=== PATIENT | female | born 1935 | race Caucasian/White ===

== ENCOUNTER 2017-06-03 13:42 | Emergency (ER) | payer MEDICARE, BC ==
[2017-06-03 14:15] VITALS: BP 141/71
--- NOTE | 2017-06-03 15:26 | UC ---
Ear Complaint HPI - HPI Summary HPI Summary: ears clogged for a couple of months has bilateral ear pressure - History of Current Complaint Chief Complaint: UCEar Stated Complaint: EARS CLOGGED Time Seen by Provider: 06/03/17 14:14 Hx Obtained From: Patient ?: No Onset/Duration: Gradual Onset, Lasting Weeks Severity Initially: Mild Severity Currently: Moderate Pain Intensity: 5 Pain Scale Used: 0-10 Numeric Aggravating Factors: Nothing Alleviating Factors: Nothing Associated Signs/Symptoms: Positive: Hearing Loss - Allergies/Home Medications Allergies/Adverse Reactions: Allergies Allergy/AdvReac Type Severity Reaction Status Date / Time Fluoxetine [From Prozac] Allergy Hives Verified 06/03/17 14:15 Morphine AdvReac GI Upset Verified 06/03/17 14:15 Propranolol AdvReac See Comment Verified 06/03/17 14:15 PMH/Surg Hx/FS Hx/Imm Hx Previously Healthy: No Endocrine History: Hypothyroidism Cardiovascular History: Hypertension - Surgical History Surgical History: Yes Surgery Procedure, Year, and Place: RT ANKLE SURGERY. GALLBLADDER. THYROIDECTOMY. TONSILECTOMY - Family History Known Family History: Positive: None - Social History Occupation: Retired Lives: Alone Alcohol Use: Rare Substance Use Type: None Smoking Status (MU): Never Smoked Tobacco Review of Systems Constitutional: Negative Skin: Negative Eyes: Negative ENT: Ear Ache Respiratory: Negative Cardiovascular: Negative Gastrointestinal: Negative Genitourinary: Negative Motor: Negative Neurovascular: Negative Musculoskeletal: Negative Neurological: Negative Psychological: Negative Is Patient Immunocompromised?: No All Other Systems Reviewed And Are Negative: Yes Physical Exam Triage Information Reviewed: Yes Appearance: Well-Appearing, No Pain Distress, Well-Nourished Vital Signs: Initial Vital Signs Temp 98.1 F 06/03/17 14:09 Pulse 76 06/03/17 14:09 Resp 16 06/03/17 14:09 BP 141/71 06/03/17 14:09 Pulse Ox 96 06/03/17 14:09 Vital Signs Reviewed: Yes Eye Exam: Normal Eyes: Positive: Conjunctiva Clear ENT Exam: Normal ENT: Positive: Normal ENT inspection, Hearing grossly normal, Pharynx normal. Negative: Nasal congestion, Nasal drainage, TMs normal - bilateral ceruman impaction, Tonsillar swelling, Tonsillar exudate, Trismus, Muffled/hoarse voice Dental Exam: Normal Neck exam: Normal Neck: Positive: Supple, Nontender Respiratory Exam: Normal Respiratory: Positive: Chest non-tender, No respiratory distress, No accessory muscle use Cardiovascular Exam: Normal Cardiovascular: Positive: RRR, Brisk Capillary Refill Musculoskeletal Exam: Normal Musculoskeletal: Positive: Strength Intact, ROM Intact Neurological Exam: Normal Neurological: Positive: Alert Psychological Exam: Normal Skin Exam: Normal Re-Evaluation - Re-Evaluation First Eval Change: Improved - tm wnl--patient tolerated well feels better Ear Complaint Course/Dx - Course Course Of Treatment: follow bp with pcp in 1-2 weeks, recheck ears prn - Differential Dx/Diagnosis Provider Diagnoses: Resolved bilateral cerumen impaction Discharge - Discharge Plan Condition: Stable Disposition: HOME Patient Education Materials: Cerumen Impaction (ED), Hypertension (ED) Referrals: Enriqueta Puente MD [Primary Care Provider] - 2 Weeks
== END 2017-06-03 15:30 | disposition home or self-care (01) ==
LOC: UCEAST 13:42
DX: H61.23 Impacted cerumen, bilateral (principal); I10 Essential (primary) hypertension; E03.9 Hypothyroidism, unspecified; Z88.6 Allergy status to analgesic agent; Z88.8 Allergy status to other drugs, medicaments and biological substances
CPT/HCPCS: 99213; G0463

== ENCOUNTER 2017-06-29 10:01 | Inpatient (IN) | payer MEDICARE, BC ==
[2017-06-29] MEDS ORDERED: NS 0.9% 1000 ML*IV.FLUID IV ONE (11:11)
--- NOTE | 2017-06-29 11:38 | RAD ---
Indication: Rhonchi at the right base. Single frontal view of the chest performed at 1120 hours was reviewed. Comparison is made with previous exam dated February 24, 2016. No mediastinal shift is noted. Heart is of normal size and configuration. Lung rich appear clear. IMPRESSION: NO ACTIVE CARDIOPULMONARY DISEASE IS NOTED.
[2017-06-29 11:49] LABS: Urine Bacteria Absent (Absent); Urine Bilirubin Negative (Negative); Urine Glucose Negative (Negative); Urine Nitrite Negative (Negative)
[2017-06-29 11:53] LABS: Hematocrit 35 % (35-47); Hemoglobin 11.4 g/dl (12.0-16.0); Mean Corpuscular HGB Conc 32 g/dl (31-36); Mean Corpuscular Hemoglobin 28 pg (27-31); Mean Corpuscular Volume 87 fL (80-97); Mean Platelet Volume 8 um3 (7.4-10.4); Red Blood Count 4.04 10^6/ul (4.0-5.4); Red Cell Distribution Width 14 % (10.5-15); White Blood Count 14.9 10^3/ul (3.5-10.8)
[2017-06-29 12:08] LABS: Albumin 2.7 g/dL (3.2-5.2); BUN/Creatinine Ratio 26.7 (8-20); Calcium 9.7 mg/dL (8.6-10.3); EGFR African American 122.8 (>60); EGFR Non-African American 95.5 (>60); Globulin 3.2 g/dL (2-4); Total Bilirubin 0.5 mg/dL (0.2-1.0); Total Protein 5.9 g/dL (6.4-8.9)
--- NOTE | 2017-06-29 12:14 | RAD ---
INDICATION: 82-year-old with sinus pain COMPARISON: None TECHNIQUE: Axial images of the paranasal sinuses were acquired. Coronal and sagittal reconstructed images were obtained. FINDINGS: Frontal sinuses: The frontal sinuses are clear. The frontal air cells are hypoplastic Ethmoid sinuses: The ethmoid sinuses are clear. Maxillary sinuses: The maxillary sinuses are clear. Sphenoid sinuses: The sphenoid sinuses are clear. Nasal passageway: The nasal septum is midline. The nasal passageway is clear. The ostiomeatal complexes are patent. Orbits: The globes and intraconal contents are unremarkable. Brain: The visualized brain parenchyma is unremarkable. Other: None. IMPRESSION: THE PARANASAL SINUSES ARE CLEAR.
[2017-06-29 12:18] LABS: Troponin I 0.07 ng/mL (<0.04)
--- NOTE | 2017-06-29 13:29 | ED ---
Kirsten Jerry Gabriel, scribed for Lalita Schofield MD on 06/29/17 at 1109 . Complex/Multi-Sys Presentation - HPI Summary HPI Summary: This patient is an 82 year old F presenting to [facility] [place] after being referred from her PCP for abnormal labs. She believes the labs revealed that she has and infection. Patient reports weakness, loss of appetite, depression, cough with green sputum, diarrhea 3-4 times daily, sinus pressure in her forehead, and jaw pain only on chewing. She also reports edema in LE down from baseline. Patient denies dysuria, CP, and dental pain. - History Of Current Complaint Chief Complaint: EDWeakness Time Seen by Provider: 06/29/17 10:54 Hx Obtained From: Patient, Family/Skein Winding Operator Onset/Duration: Still Present Timing: Constant Associated Signs And Symptoms: Positive: Other - weakness, loss of appetite, depression, cough with green sputum, diarrhea 3-4 times daily, sinus pressure in her forehead, and jaw pain only on chewing. NEGATIVE: dental pain. Negative : Chest Pain, Dysuria - Allergies/Home Medications Allergies/Adverse Reactions: Allergies Allergy/AdvReac Type Severity Reaction Status Date / Time Fluoxetine [From Prozac] Allergy Hives Verified 06/03/17 14:15 Morphine AdvReac GI Upset Verified 06/03/17 14:15 Propranolol AdvReac See Comment Verified 06/03/17 14:15 Home Medications: Home Medications Levothyroxine TAB* [Synthroid TAB*] 50 mcg PO QAM 06/29/17 [History Confirmed ] Metoprolol Tartrate TAB* [Lopressor TAB*] 12.5 mg PO DAILY 06/29/17 [History Confirmed 06/29/17] Multiple Vitamins W/ Minerals [Preservision Areds 2 + Mu] 1 cap PO BID 06/29/17 [History Confirmed 06/29/17] Travoprost Z 0.004% OPHTH (NF) [Travatan Z 0.004% OPTH (NF)] 1 drop BOTH EYES BEDTIME 06/29/17 [History Confirmed 06/29/17] buPROPion TAB* [Wellbutrin TAB*] 200 mg PO DAILY 06/29/17 [History Confirmed ] PMH/Surg Hx/FS Hx/Imm Hx Previously Healthy: No Endocrine/Hematology History: Reports: Hx Thyroid Disease Denies: Hx Diabetes Cardiovascular History: Reports: Hx Hypertension Denies: Hx Angina, Hx Coronary Artery Disease - hx. of "left ventricular hypertrophy", Hx Hypercholesterolemia, Hx Myocardial Infarction, Hx Pacemaker/ ICD, Hx Valvular Heart Disease Respiratory History: Reports: Hx Seasonal Allergies Denies: Hx Asthma, Hx Chronic Obstructive Pulmonary Disease (COPD) Musculoskeletal History: Reports: Hx Arthritis, Hx Back Problems, Hx Osteoporosis Sensory History: Reports: Hx Cataracts, Hx Contacts or Glasses, Hx Hearing Problem Denies: Hx Hearing Aid, Other Sensory Impairments Opthamlomology History: Reports: Hx Cataracts, Hx Contacts or Glasses Denies: Other Sensory Impairments Psychiatric History: Reports: Hx Anxiety, Hx Depression Denies: Hx Panic Disorder, Hx Suicide Attempt - Cancer History Cancer Type, 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 GALLBLADDER. THYROIDECTOMY. TONSILECTOMY Hx Anesthesia Reactions: No Infectious Disease History: No Infectious Disease History: Denies: Hx Clostridium Difficile, Hx Hepatitis, Hx Human Immunodeficiency Virus (HIV), Hx of Known/Suspected MRSA, Hx Shingles, Hx Tuberculosis, Hx Known/ Suspected VRE, Hx Known/Suspected VRSA, History Other Infectious Disease, Traveled Outside the [place] in Last 30 Days - Family History Known Family History: Positive: Unknown - Social History Lives: Alone Alcohol Use: None Hx Substance Use: No Substance Use Type: Reports: None Hx Tobacco Use: No Smoking Status (MU): Never Smoked Tobacco Review of Systems Positive: Other - loss of appetite Positive: Other - sinus pressure in forehead and jaw pain on chewing . Negative : Dental Pain Negative: Chest Pain Positive: Cough - w/ green sputum Positive: Diarrhea - 3-4 times a day Negative: dysuria Negative: Edema - decreased from baseline Positive: Weakness Positive: Depressed All Other Systems Reviewed And Are Negative: Yes Physical Exam - Summary Physical Exam Summary: General: Well appearing, no pain distress Skin: Warm, Skin Color Reflects Adequate Perfusion, Dry Eyes: EOMI, NIYAH Mouth: Teeth are non-tender to palpation ENT: Pharynx normal, TMs normal, Bilateral tenderness over the frontal sinuses, mucous membranes are dry Neck: Supple, nontender Respiratory: CTA, breath sounds present, no wheezes, no rales, rhonchi at the right base, non tachypnic Cardiovascular: RRR, no murmur, no rub, no gallop Abdomen: Soft, nontender, Non-distended, no guarding, no rebound Bowel: Present Musculoskeletal: LELO, 2+ softening in legs Neuro: Sensory/motor intact, A&Ox3, CN intact 2-12 Psych: Affect/mood appropriate Triage Information Reviewed: Yes Vital Signs On Initial Exam: Initial Vitals Temp Pulse Resp BP Pulse Ox 97.5 F 78 16 129/67 99 06/29/17 10:03 06/29/17 10:03 06/29/17 10:03 06/29/17 10:03 06/29/17 10:03 Vital Signs Reviewed: Yes Diagnostics - Vital Signs Vital Signs Temp Pulse Resp BP Pulse Ox 06/29/17 10:03 97.5 F 78 16 129/67 99 - Laboratory Lab Results: Lab Results 06/29/17 06/29/17 06/29/17 Range/Units 11:32 11:32 11:32 WBC 14.9 H (3.5-10.8) 10^3/ul RBC 4.04 (4.0-5.4) 10^6/ul Hgb 11.4 L (12.0-16.0) g/dl Hct 35 (35-47) % MCV 87 (80-97) fL MCH 28 (27-31) pg MCHC 32 (31-36) g/dl RDW 14 (10.5-15) % Plt Count 556 H (150-450) 10^3/ul MPV 8 (7.4-10.4) um3 Neut % (Auto) 86.7 H (38-83) % Lymph % (Auto) 6.2 L (25-47) % Avery % (Auto) 6.5 (1-9) % Eos % (Auto) 0.6 (0-6) % Baso % (Auto) 0 (0-2) % Absolute Neuts (auto) 12.9 H (1.5-7.7) 10^3/ul Absolute Lymphs (auto) 0.9 L (1.0-4.8) 10^3/ul Absolute Monos (auto) 1.0 H (0-0.8) 10^3/ul Absolute Eos (auto) 0.1 (0-0.6) 10^3/ul Absolute Basos (auto) 0 (0-0.2) 10^3/ul Absolute Nucleated RBC 0 10^3/ul Nucleated RBC % 0 INR (Anticoag Therapy) 1.02 (0.89-1.11) APTT 27.8 (26.0-36.3) seconds Sodium 131 L (133-145) mmol/L Potassium 4.0 (3.5-5.0) mmol/L Chloride 97 L (101-111) mmol/L Carbon Dioxide 26 (22-32) mmol/L Anion Gap 8 (2-11) mmol/L BUN 16 (6-24) mg/dL Creatinine 0.60 (0.51-0.95) mg/dL Est GFR ( Amer) 122.8 (>60) Est GFR (Non-Af Amer) 95.5 (>60) BUN/Creatinine Ratio 26.7 H (8-20) Glucose 105 H (70-100) mg/dL Lactic Acid (0.5-2.0) mmol/L Calcium 9.7 (8.6-10.3) mg/dL Total Bilirubin 0.50 (0.2-1.0) mg/dL AST 14 (13-39) U/L ALT 8 (7-52) U/L Alkaline Phosphatase 200 H (34-104) U/L Troponin I 0.07 H* (<0.04) ng/mL Total Protein 5.9 L (6.4-8.9) g/dL Albumin 2.7 L (3.2-5.2) g/dL Globulin 3.2 (2-4) g/dL Albumin/Globulin Ratio 0.8 L (1-3) Urine Color Urine Appearance Urine pH (5-9) Ur Specific [place] (1.010-1.030) Urine Protein (Negative) Urine Ketones (Negative) Urine Blood (Negative) Urine Nitrate (Negative) Urine Bilirubin (Negative) Urine Urobilinogen (Negative) Ur Leukocyte Esterase (Negative) Urine WBC (Auto) (Absent) Urine RBC (Auto) (Absent) Ur Squamous Epith Cells (Absent) Urine Bacteria (Absent) Urine Glucose (Negative) Urine Ascorbic Acid (Negative) Influenza A (Rapid) (Negative) Influenza B (Rapid) (Negative) 06/29/17 06/29/17 06/29/17 Range/Units 11:32 11:32 11:58 WBC (3.5-10.8) 10^3/ul RBC (4.0-5.4) 10^6/ul Hgb (12.0-16.0) g/dl Hct (35-47) % MCV (80-97) fL MCH (27-31) pg MCHC (31-36) g/dl RDW (10.5-15) % Plt Count (150-450) 10^3/ul MPV (7.4-10.4) um3 Neut % (Auto) (38-83) % Lymph % (Auto) (25-47) % Avery % (Auto) (1-9) % Eos % (Auto) (0-6) % Baso % (Auto) (0-2) % Absolute Neuts (auto) (1.5-7.7) 10^3/ul Absolute Lymphs (auto) (1.0-4.8) 10^3/ul Absolute Monos (auto) (0-0.8) 10^3/ul Absolute Eos (auto) (0-0.6) 10^3/ul Absolute Basos (auto) (0-0.2) 10^3/ul Absolute Nucleated RBC 10^3/ul Nucleated RBC % INR (Anticoag Therapy) (0.89-1.11) APTT (26.0-36.3) seconds Sodium (133-145) mmol/L Potassium (3.5-5.0) mmol/L Chloride (101-111) mmol/L Carbon Dioxide (22-32) mmol/L Anion Gap (2-11) mmol/L BUN (6-24) mg/dL Creatinine (0.51-0.95) mg/dL Est GFR ( Amer) (>60) Est GFR (Non-Af Amer) (>60) BUN/Creatinine Ratio (8-20) Glucose (70-100) mg/dL Lactic Acid 1.3 (0.5-2.0) mmol/L Calcium (8.6-10.3) mg/dL Total Bilirubin (0.2-1.0) mg/dL AST (13-39) U/L ALT (7-52) U/L Alkaline Phosphatase (34-104) U/L Troponin I (<0.04) ng/mL Total Protein (6.4-8.9) g/dL Albumin (3.2-5.2) g/dL Globulin (2-4) g/dL Albumin/Globulin Ratio (1-3) Urine Color Yellow Urine Appearance Cloudy Urine pH 5.0 (5-9) Ur Specific [place] 1.013 (1.010-1.030) Urine Protein Negative (Negative) Urine Ketones Trace H (Negative) Urine Blood 1+ H (Negative) Urine Nitrate Negative (Negative) Urine Bilirubin Negative (Negative) Urine Urobilinogen Negative (Negative) Ur Leukocyte Esterase Trace H (Negative) Urine WBC (Auto) 2+(11-20/hpf) H (Absent) Urine RBC (Auto) 2+(6-10/hpf) H (Absent) Ur Squamous Epith Cells Present H (Absent) Urine Bacteria Absent (Absent) Urine Glucose Negative (Negative) Urine Ascorbic Acid * H (Negative) Influenza A (Rapid) Negative (Negative) Influenza B (Rapid) Negative (Negative) Result Diagrams: 06/29/17 11:32 06/29/17 11:32 Lab Statement: Any lab studies that have been ordered have been reviewed, and results considered in the medical decision making process. - Radiology CXR Radiology Interpretation Completed By: Radiologist - NO ACTIVE CARDIOPULMONARY DISEASE IS NOTED. ED physician has reviewed this radiology report and agrees. - CT CT Sinus CT Interpretation Completed By: Radiologist - THE PARANASAL SINUSES ARE CLEAR. ED physician has reviewed this radiology report and agrees. - EKG 11:28 Cardiac Rate: NL EKG Rhythm: Sinus Rhythm - NSR at 68 BPM EKG Interpretation: abnormal r wave progression, no ST elevations. Complex Multi-Symp Course/Dx Assessment/Plan: Patient has a WBC count of 1800 and CRP of 240, so she will receive antibiotics and fluids for just in case she proves to have sepsis. Pt with poor rwave progression on ekg trop .07. the idea of staying for observation to make sure this number improves was discussed with pt and her health care proxy and pt agreed to stay case was then discussed with Dr. Smith who accepted pt - Diagnoses Provider Diagnoses: Acute UTI, Elevated troponin - Physician Notifications Discussed Care Of Patient With: Mariel Smith Time Discussed With Above Provider: 12:40 Instructed by Provider To: Other - Discussed patient care with Dr. Smith, hospitalist and they have agreed to accept the patient for admittance Discharge - Discharge Plan Condition: Stable Disposition: ADMITTED TO [facility] Referrals: Enriqueta Puente MD [Primary Care Provider] - The documentation as recorded by the Kirsten burns Gabriel accurately reflects the service I personally performed and the decisions made by me, Lalita Schofield MD.
[2017-06-29] MEDS ORDERED: PROCHLORPERAZINE INJ 5 MG/ML 2 ML VIAL IV PRN (13:38)
[2017-06-29] MEDS ORDERED: Levofloxacin 500 MG IVPREMIX(* 500 MG/100 ML BAG IVPB ONE (13:38)
[2017-06-29] MEDS ORDERED: OPTH RIGHT EYE SCH (14:00)
[2017-06-29] MEDS ORDERED: Dorzolamide 2% OPTH (NF) 10 ML BTL RIGHT EYE SCH (14:00)
[2017-06-29] MEDS ORDERED: DORZOLAMIDE 2% RIGHT EYE SCH (14:00)
[2017-06-29] MEDS ORDERED: guaiFENesin LIQ* 100 MG/5 ML UDC PO PRN (14:05)
[2017-06-29 14:34] LABS: Urine Bacteria Absent (Absent); Urine Bilirubin Negative (Negative); Urine Glucose Negative (Negative); Urine Nitrite Negative (Negative)
[2017-06-29] MEDS: Heparin VIAL(*) 5000 UNITS/ML VIAL (FIVE THOUSAND) SUBCUT SCH ×2 (15:29→21:58)
[2017-06-29] MEDS: Acetaminophen TAB* 325 MG PO PRN (15:32)
--- NOTE | 2017-06-29 17:58 | HP ---
CC: Dr. Puente HISTORY AND PHYSICAL: DATE OF ADMISSION: 06/29/17 TIME OF EVALUATION: 1 p.m. PRIMARY CARE PROVIDER: Dr. Puente. CHIEF COMPLAINT: "I am weak." HISTORY OF PRESENT ILLNESS: Mrs. Vargas is an 82-year-old lady with a past medical history of paroxysmal atrial fibrillation, hypothyroidism, hypertension , anxiety, glaucoma, macular degeneration, that presents to the emergency room, referred by her PCP with complaints of weakness. The patient states that a couple of weeks ago, she started to have respiratory symptoms including runny nose and productive cough. This progressed associated with weakness and body aches. She denies chest pain or change on her baseline dyspnea, but the cough persisted. She developed pain on her facial sinuses and went to see her primary care provider yesterday and had lab test done. Her CBC showed a white cell count of 18.4 with thrombocytosis, left shift and a CRP of 223. Her PCP called her today and recommended she come to the emergency room for further evaluation. The patient states she has been progressively weak. She was unable to transfer from her bed and a friend had to buy a bed risers and now she is able to stand up. She has also been using a walker and that is new to her and recently she has required a wheelchair when she goes out for appointments. She denies fever, chills, nausea, or vomiting. She did have some loose stools this past week, but she states this is better now. She has lower extremity edema, but also thinks this is better now that she is taking spironolactone. She denies dysuria, describes frequency that she thinks is associated with spironolactone use. PAST MEDICAL HISTORY: 1. 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 2. Hypertension. 3. Paroxysmal atrial fibrillation. 4. Anxiety. 5. Glaucoma. 6. Macular degeneration. MEDICATION LIST: 1. Bupropion 200 mg p.o. daily. 2. Trusopt 1 drop to right eye t.i.d. 3. Levothyroxine 50 mcg p.o. q.a.m. 4. Losartan 100 mg p.o. daily. 5. Metoprolol tartrate 12.5 mg p.o. daily. 6. PreserVision AREDS 2 one capsule p.o. b.i.d. 7. Spironolactone 12.5 mg p.o. daily. 8. Travatan Z 0.004% one drop to both eyes at bedtime. ALLERGIES: With FLUOXETINE, the patient had hives; with MORPHINE, she had GI upset; and with PROPRANOLOL, she had bradycardia. FAMILY HISTORY: Reviewed and noncontributory. SOCIAL HISTORY: No history of tobacco or drug use. Occasionally, she drinks alcohol. She lives at [facility]. Surrogate decision maker is her friend, Minda Salinas, phone number is [phone]. REVIEW OF SYSTEMS: A 14-point review of systems was performed, and all the pertinent negative and positive findings are in the HPI. PHYSICAL EXAMINATION GENERAL: The patient is a pleasant elderly lady, sitting up in the ED stretcher , in no acute distress. VITAL SIGNS: Temperature 97.5, heart rate is 72, respiratory rate is 16, oxygen saturation is 97% on room air, blood pressure is 133/70. HEENT: Pupils are equal. Moist mucous membranes. CHEST: Breath sounds are present bilaterally with scattered rhonchi. No wheezing. CVS: Normal S1, S2. Regular rate and rhythm. ABDOMEN: Soft, nontender, nondistended. Bowel sounds are present. EXTREMITIES: Bilateral [id number] pitting edema of the lower extremities. LABORATORY AND IMAGING DATA: The patient had a CBC that showed a WBC of 14.9, hemoglobin of 11.4, hematocrit of 35, platelets of 156 with 86% neutrophils. INR was 1.02. Chemistry showed a sodium of 131, potassium of 4.0, chloride of 97, bicarb of 26, BUN of 16, creatinine of 0.6, glucose of 105, lactic acid 1.3 , calcium of 9.7. LFTs are normal except for alk phos of 200 and first troponin was 0.07. Urinalysis showed trace ketones, 1+ blood, trace LE, 2+ wbc's, 2+ rbc's, and influenza A and B were negative. Chest x-ray showed no active cardiopulmonary disease. CT of the sinuses showed the paranasal sinuses are clear. EKG done on June 29 at 11:28 a.m. shows sinus rhythm at 68 beats per minute with no ST-T changes. No significant change when compared to her prior EKG from February 2016. ASSESSMENT AND PLAN: Mrs. Vargas is an 82-year-old lady with past medical history of hypothyroidism, hypertension, paroxysmal atrial fibrillation, anxiety , glaucoma, macular degeneration that was sent to the emergency room by her primary care provider with complaints of weakness, found to have signs of infection and borderline troponins. 1. Borderline troponins. The patient has no complaints of chest pain. No acute EKG changes. I believe this is likely secondary to demand in the setting of infection. The patient had a nuclear stress test in February 2016 and it showed a normal ejection fraction with a small reversible perfusion defect of the inferior wall that could represent artifact or a small area of ischemia. The patient follows regularly with Dr. Caldwell and the plan was to continue only medical management. She is going to be admitted as observation to the telemetry. We are going to check serial troponins and continue to monitor her for now. 2. Bronchitis. I suspect the source of her infection is bronchitis at this time. Her chest x-ray shows no infiltrate and the CT of the sinuses was also negative. She was pancultured in the emergency room and we are going to start levofloxacin empirically. The patient states her urinalysis in the emergency room was not a clean catch, so we are going to try to straight cath her and send another sample, but at this point, she has no other urinary complaints besides frequency that she feels is associated with spironolactone use. 3. Leukocytosis/anemia/thrombocytosis. Although I believe her leukocytosis may be secondary to an infectious process, she does have changes on other cell lines too and considering her age, her CRP and alk phos elevation, a hematological malignancy should also be considered. I believe after discharge, the patient should follow up with her primary care provider and if these changes do not resolve with her bronchitis treatment, she should be seen by Hematology. 4. Paroxysmal atrial fibrillation. The patient is in sinus rhythm at this time. We will continue metoprolol. 5. Hypertension is controlled. We will continue metoprolol and losartan. 6. DVT prophylaxis. The patient has a score of 5 on the DVT Prophylaxis Risk Assessment Guide and she will be started on subcutaneous heparin. 7. Code status is full. TIME SPENT: Approximately 60 minutes were spent with the patient interview, medical records review, physical examination to complete this admission; more than half of this time was spent [id number] with the patient and coordination of care. [id number]/[facility] #: [id number] MINNIE
[2017-06-29] MEDS: PTO: Dorzolamide 2% OPTH (NF) 10 ML BTL RIGHT EYE SCH (20:28)
[2017-06-29] MEDS ORDERED: Latanoprost 0.005%* 2.5 ml BTL BOTH EYES SCH ×2 (21:00→22:00)
[2017-06-29] MEDS: MINERA AREDS PO SCH (21:59)
[2017-06-29] MEDS: MULTIVITAMINS PO SCH (21:59)
[2017-06-30] MEDS: Acetaminophen TAB* 325 MG PO PRN ×2 (00:26→08:43)
[2017-06-30] MEDS: Heparin VIAL(*) 5000 UNITS/ML VIAL (FIVE THOUSAND) SUBCUT SCH (05:16)
[2017-06-30] MEDS ORDERED: Levothyroxine TAB* 50 MCG TAB PO SCH (06:00)
[2017-06-30] MEDS: MULTIVITAMINS PO SCH (08:31)
[2017-06-30] MEDS: MINERA AREDS PO SCH (08:31)
[2017-06-30] MEDS: PTO: Dorzolamide 2% OPTH (NF) 10 ML BTL RIGHT EYE SCH (08:42)
[2017-06-30] MEDS ORDERED: Spironolactone TAB* 25 MG PO SCH (09:00)
[2017-06-30] MEDS ORDERED: Losartan TAB* 25 MG PO SCH (09:00)
[2017-06-30] MEDS ORDERED: buPROPion TAB* 100 MG PO SCH (09:00)
[2017-06-30] MEDS ORDERED: Aspirin EC Low Dose* 81 MG TAB.EC PO SCH (09:00)
[2017-06-30] MEDS ORDERED: Metoprolol Tartrate TAB* 25 MG PO SCH (09:00)
[2017-06-30 11:39] VITALS: BP 140/73
--- NOTE | 2017-06-30 12:00 | DCNOTE ---
Patient seen this morning. Says she feels better today although tired from not getting good sleep in the hospital. Not coughing much, no SOB. Friend at bedside says she has plenty of support at home. On exam, RRR, s1 and s2 present, no m/g/r, lungs CTA B/L, no w/r/r, abd soft, NTND, BS+, no LE edema Will discharge home today on PO ABx for presumed bronchitis. Trops unchanged, likely demand-mediated. Will f/u with Dr. Puente next week.
[2017-06-30] MEDS ORDERED: Levofloxacin TAB* 500 MG ONE (12:36)
[2017-06-30] MEDS: Levofloxacin TAB* 500 MG PO SCH ×2 (12:38→12:48)
[2017-06-30] MEDS ORDERED: Levofloxacin TAB* 500 MG PO SCH (15:00)
--- NOTE | 2017-06-30 17:31 | DS ---
CC: Dr. Puente DISCHARGE SUMMARY: DATE OF ADMISSION: 06/29/17 DATE OF DISCHARGE: 06/30/17 PRIMARY CARE PHYSICIAN: Dr. Puente. PRINCIPAL DISCHARGE DIAGNOSES: 1. Acute bronchitis. 2. Weakness. SECONDARY DIAGNOSES: 1. Hypertension. 2. Paroxysmal atrial fibrillation. 3. Anxiety. 4. Glaucoma. 5. Macular degeneration. 6. History of Graves' and thyroid cancer, status post thyroidectomy, now on replacement therapy. DISCHARGE MEDICATION REGIMEN: 1. Levofloxacin 500 mg by mouth daily. 2. Dorzolamide 1 drop to the right eye 3 times daily. 3. Synthroid 50 mcg by mouth daily. 4. Losartan 100 mg by mouth daily. 5. Wellbutrin 200 mg by mouth daily. 6. Spironolactone 12.5 mg by mouth daily. 7. Travoprost 1 drop in both eyes at bedtime. 8. PreserVision 1 capsule by mouth 3 times daily. 9. Metoprolol tartrate 12.5 mg by mouth daily. STUDIES DONE DURING HOSPITALIZATION: Chest x-ray, impression: No active cardiopulmonary disease is noted. CT of the sinus, impression: The paranasal sinuses are clear. HISTORY OF PRESENT ILLNESS AND HOSPITAL SUMMARY: Please see the full history and physical by Dr. Louie for full details. Briefly, Ms. Vargas is an 82-year-old female, who presented to her PCP's [facility] with complaints of weakness, body aches, runny nose, and productive cough. She felt some sinus pr essure as well. The patient's PCP shabana labs and as an outpatient was noted to have a white blood carmencita l count of 18.4 with a thrombocytosis and an elevated CRP. She recommended the patient to come to [facility] for further evaluation. As noted, imaging as above was relatively unremarkable. The frank ent also had urinalysis that was not terribly convincing for an infection and the patient had no dysu rubin. Influenza swab was negative. The patient did have a mild troponin elevation of 0.07 and this r emained stable. The patient had no chest pain and it was felt like this was likely secondary to infe ction. The patient was felt likely have acute bronchitis. She was started on antibiotics and the following day, she stated she had improvement in her energy, did not feel as weak anymore and was anxious to go home. Her friend at the bedside states that she will be helping the patient at home and the patient has significant support system as well as a walker and a wheelchair at home. I felt that it was saf e to discharge the patient home on additional days of antibiotics for presumed bronchitis. As noted in the history and physical by Dr. Aguayo, the patient did have a thrombocytosis as well as a signifi cantly elevated CRP and alk phos. The patient should have repeat blood work in the next few weeks af ter her symptoms have resolved to reevaluate these lab abnormalities and if they are not corrected, m ay benefit from Heme/Onc consultation. TIME SPENT: Total time spent on this discharge 45 minutes. This is a summary of the hospitalization, please see the full medical record for further details. [id number] #: [id number]
== END 2017-06-30 13:00 | disposition home or self-care (01) | DRG 203 ==
LOC: ED 10:01 → MEDTELE 13:01
PROVIDERS: ADMIT Internal Medicine; ATTEND Hospitalist
DX: J20.9 Acute bronchitis, unspecified (principal); I48.0 Paroxysmal atrial fibrillation; I10 Essential (primary) hypertension; E89.0 Postprocedural hypothyroidism; J30.2 Other seasonal allergic rhinitis; M81.0 Age-related osteoporosis without current pathological fracture; M19.90 Unspecified osteoarthritis, unspecified site; F41.9 Anxiety disorder, unspecified; F32.9 Major depressive disorder, single episode, unspecified; H26.9 Unspecified cataract; H35.30 Unspecified macular degeneration; H40.9 Unspecified glaucoma; H91.90 Unspecified hearing loss, unspecified ear; D47.3 Essential (hemorrhagic) thrombocythemia; R79.82 Elevated C-reactive protein (CRP); Z90.49 Acquired absence of other specified parts of digestive tract; Z88.5 Allergy status to narcotic agent; Z88.8 Allergy status to other drugs, medicaments and biological substances; Z85.850 Personal history of malignant neoplasm of thyroid; Z72.89 Other problems related to lifestyle
CPT/HCPCS: 36415; 70486; 71010; 80053; 81003; 81015; 82607; 82728; 82746; 83605; 84439; 84443; 84479; 84484; 85025; 85045; 85610; 85730; 86140; 87040; 87086; 87502; 93005; A9270-GY; J1644; J1956

== ENCOUNTER 2017-08-03 13:28 | Inpatient (IN) | payer MEDICARE, BC ==
[2017-08-03] MEDS ORDERED: NS 0.9% 1000 ML* 1,000 ML IV ONE (13:41)
[2017-08-03 14:23] LABS: ABS Basophils 0.1 10^3/ul (0-0.2); ABS Eosinophils 0 10^3/ul (0-0.6); ABS Lymphocytes 0.7 10^3/ul (1.0-4.8); ABS Monocytes 0.8 10^3/ul (0-0.8); ABS Neutrophils 18.4 10^3/ul (1.5-7.7); ABS Nucleated RBC 0.02 10^3/ul; Eosinophil % 0.1 % (0-6); Hematocrit 35 % (35-47); Hemoglobin 11.4 g/dl (12.0-16.0); Lymphocyte % 3.4 % (25-47); Mean Corpuscular HGB Conc 33 g/dl (31-36); Mean Corpuscular Hemoglobin 28 pg (27-31); Mean Corpuscular Volume 86 fL (80-97); Mean Platelet Volume 7 um3 (7.4-10.4); Nucleated Red Blood Cells % 0.1; Platelet Count 479 10^3/ul (150-450); Red Blood Count 4.03 10^6/ul (4.0-5.4); Red Cell Distribution Width 15 % (10.5-15)
--- NOTE | 2017-08-03 14:23 | RAD ---
Indication: Weakness; possible drug overdose. Comparison: June 29, 2017 Technique: Upright AP 1410 hours Report: Elevated lung volumes and both diffuse mild prominence of the interstitial markings and patchy rarefaction of the mid to upper lung zone interstitial markings. No focal pulmonary lesion, compelling alveolar consolidation, pleural effusion, pneumothorax. Negative for cardiomegaly. Unremarkable central pulmonary vasculature. Mildly tortuous thoracic aorta. IMPRESSION: Stigmata of obstructive lung disease. No acute pulmonary or cardiac process evident.
--- NOTE | 2017-08-03 14:46 | RAD ---
Indication: Suspected overdose on bupropion. Possible CVA. Comparison: No relevant prior exams available on the [facility] PACS for comparison. Technique: Noncontrast CT vertex of skull through foramen magnum. Report: The sulci, ventricles, and basal cisterns are normal for age. Hernandez matter white matter differentiation is preserved without evidence for edema. No intra or extra axial hemorrhage, mass, or fluid collection detected. No suspicious abnormality at the visualized orbital contents. Indolent thickening of the inner table of the frontal bone. No suspicious calvarial or skull base lesions or fracture. Unremarkable scalp. The visualized paranasal sinuses and mastoid air spaces are clear. IMPRESSION: Negative for intracranial hemorrhage or CT stigmata of ischemic infarct. Negative exam.
[2017-08-03 14:48] LABS: INR 0.96 (0.77-1.02)
[2017-08-03] MEDS ORDERED: Levothyroxine TAB* 25 MCG TAB PO ONE (16:15)
--- NOTE | 2017-08-03 16:29 | ADMNOTE ---
Subjective Date of Service: 08/03/17 Interval History: ADMISSION HISTORY AND PHYSICAL EXAM: Allergies Allergy/AdvReac Type Severity Reaction Status Date / Time Fluoxetine [From [facility]] Allergy Hives Verified 06/03/17 14:15 Morphine AdvReac GI Upset Verified 06/03/17 14:15 Propranolol AdvReac See Comment Verified 06/03/17 14:15 Home Medications Medication Instructions Recorded Confirmed Type Losartan TAB* [Cozaar TAB*] 100 mg PO DAILY 10/25/13 08/03/17 History Dorzolamide 2% OPTH (NF) [Trusopt 1 drop RIGHT EYE BID 02/24/16 08/03/17 History 2% OPTH (NF)] Levothyroxine TAB* [Synthroid TAB*] 50 mcg PO QAM 06/29/17 08/03/17 History Travoprost Z 0.004% OPHTH (NF) 1 drop BOTH EYES BEDTIME 06/29/17 08/03/17 History [Travatan Z 0.004% OPTH (NF)] Furosemide TAB* [Lasix TAB*] 20 mg PO DAILY 08/03/17 08/03/17 History Metoprolol Succinate XL TAB* 12.5 mg PO BEDTIME 08/03/17 08/03/17 History [Toprol XL TAB*] Metoprolol Succinate XL TAB* 12.5 mg PO QAM 08/03/17 08/03/17 History [Toprol XL TAB*] buPROPion SR TAB* [Wellbutrin SR 100 mg PO BEDTIME 08/03/17 08/03/17 History TAB*] buPROPion SR TAB* [Wellbutrin SR 200 mg PO QAM 08/03/17 08/03/17 History TAB*] HPI: The patient was somewhat weaker yesterday. Today she couldn't get OOB. No pain. She took an unknown number of bupropion tablets during the night to try to kill herself. She says she did this also a few days ago. She says she is very depressed. SHe also says she is impacted. Social History: Findings - Lives alone. No alcohol or tobacco use. No children or siblings living. Her friend Minda Salinas is her SDM. Past Medical History: Findings - Graves's disease and thryoid cancer, thyroid surgery. ? hx PAF. Glaucoma. macular degeneration. Review of Systems - Measurements Intake and Output: Intake and Output Last 24 Hours 08/01/17 08/02/17 08/03/17 08/04/17 06:59 06:59 06:59 06:59 Weight 180 lb Objective Vital Signs - 8 hr 08/03/17 13:31 Temperature 97.7 F Pulse Rate 87 Respiratory 20 Rate Blood Pressure 149/74 (mmHg) O2 Sat by Pulse 97 Oximetry Oxygen Devices in Use Now: None Appearance: Alert, partly up on ED stretcher. Depressed, otherwise looks comfortable. Eyes: No Scleral Icterus Ears/Nose/Mouth/Throat: Clear Oropharnyx, Mucous Membranes Moist Neck: NL Appearance and Movements; NL JVP, No Thyroid Enlargement, Masses Respiratory: Symmetrical Chest Expansion and Respiratory Effort, Clear to Auscultation, Clear to Percussion Cardiovascular: NL Sounds; No Murmurs; No JVD, RRR, - - 1+ edema BL Extremities: No Clubbing, Cyanosis, - - 1+ edema BL Skin: No Rash or Ulcers, No Nodules or Sclerosis, - Neurological: Alert and Oriented x 3, NL Sensation, - - diminished hearing Result Diagrams: 08/03/17 14:10 08/03/17 14:10 Assess/Plan/Problems-Billing Assessment: - Patient Problems (1) Suicidal behavior Current Visit: Yes Status: Acute Code(s): R46.89 - OTHER SYMPTOMS AND SIGNS INVOLVING APPEARANCE AND BEHAVIOR SNOMED Code(s): 437485353 Comment: Telelmetry until 08/04. Psychiatry consult. (2) Left hemiparesis Current Visit: Yes Status: Acute Code(s): G81.94 - HEMIPLEGIA, UNSPECIFIED AFFECTING LEFT NONDOMINANT SIDE SNOMED Code(s): 640065001 Comment: Subtle changes per Dr. Goel. Could be CVA or periperal neuropathy. Slow progression over a month favors the latter dx. MRI brain and C-spine ordered. (3) Hypothyroid Current Visit: Yes Status: Acute Code(s): E03.9 - HYPOTHYROIDISM, UNSPECIFIED SNOMED Code(s): 78089145 Comment: TSH 22 on 08/03/17. Extra levothyroxine 50 mcg 08/03, change daily dose to 100 mcg. (4) Fecal impaction Current Visit: Yes Status: Acute Code(s): K56.41 - FECAL IMPACTION SNOMED Code(s): 61517029 Comment: Pt reports a fecal impaction. She can't remember when she last had a BM. Disimpaction ordered, also PEG 17 gm bid. (5) HTN (hypertension) Current Visit: Yes Status: Acute Code(s): I10 - ESSENTIAL (PRIMARY) HYPERTENSION SNOMED Code(s): 42801872 Comment: Continue losartan, metoprolol. (6) Atrial fibrillation Current Visit: Yes Status: Acute Code(s): I48.91 - UNSPECIFIED ATRIAL FIBRILLATION SNOMED Code(s): 80361074 Comment: We wlll try to contact Dr. Caldwell about possible anti-coagulation for atrial fib.
--- NOTE | 2017-08-03 16:43 | ED ---
Tony Jerry Angela, scribed for Katt Lopez MD on 08/03/17 at 1340 . Neurological HPI - HPI Summary HPI Summary: This pt is a 82 y/o female, accompanied by her health care proxy Minda Salinas, presenting to [facility] via EMS from Dr. Puente's office c/o left sided weakness and possible medication overdose yesterday. Pt lives in [facility]. Pt was last seen well yesterday, per Dr. Puente's report. Per EMS pt has confusion, some slurred speech, and left sided weakness. Minda notes that the pt is usually able to get up from her bed to go to the bathroom. This morning, per health care proxy, pt couldn't get off the toilet. Pt additionally states numbness of left fingers. Report from Dr. Puente also states that she was on antidepressants which was stopped and then pt re took again. Pt told neighbor that she took extra Bupropion pills yesterday evening. When asked how many pills she took, pt notes "not enough to do the job." She states "there is no reason to keep going." Pt reports that today and currently she is feeling "hopeful." Minda states she has been trying to feed the pt but the pt has not been eating well for the past days. Minda notes the pt has lost weight. Pt denies abd pain. Pt normally ambulated with a walker. She denies any recent falls. EMS reports pt's glucose en route was 103 and O2 sat of 95-[address] Puente reports that pt does have paroxysmal atrial fibrillation, but is not on anticoagulation, because pt did not want anticoagulation. - History of Current Complaint Stated Complaint: POSSIBLE CVA Hx Obtained From: Patient, Family/Reinspector - health care proxy, EMS, Other: - Dr. Puente Onset/Duration: Gradual Onset, Started days ago, Still Present Timing: Constant Onset Severity: Moderate Current Severity: Moderate Neurological Deficit Location: LUE, LLE Pain Intensity: 0 Character: Weak - left sided, Numbness/Tingling - numbness of left fingers, Motor Weakness - left upper and lower extremities, Confusion Aggravating: Nothing Alleviating: Nothing Associated Signs and Symptoms: Positive: Unsteady Gait - difficulty ambulating, Confusion, Weakness, Change in Diet - poor po intake, Depression - increased. Suicidal gesture. TPA Considered: No - last known well yesterday - Additional Pertinent History Primary Care Physician: Referred By: PCP - Allergy/Home Medications Allergies/Adverse Reactions: Allergies Allergy/AdvReac Type Severity Reaction Status Date / Time Fluoxetine [From Prozac] Allergy Hives Verified 06/03/17 14:15 Morphine AdvReac GI Upset Verified 06/03/17 14:15 Propranolol AdvReac See Comment Verified 06/03/17 14:15 Home Medications: Home Medications Furosemide TAB* [Lasix TAB*] 20 mg PO DAILY 08/03/17 [History Confirmed 08/03/17 ] Metoprolol Succinate XL TAB* [Toprol XL TAB*] 12.5 mg PO BEDTIME 08/03/17 [ History Confirmed 08/03/17] Metoprolol Succinate XL TAB* [Toprol XL TAB*] 12.5 mg PO QAM 08/03/17 [History Confirmed 08/03/17] buPROPion SR TAB* [Wellbutrin SR TAB*] 100 mg PO BEDTIME 08/03/17 [History Confirmed 08/03/17] buPROPion SR TAB* [Wellbutrin SR TAB*] 200 mg PO QAM 08/03/17 [History Confirmed 08/03/17] PMH/Surg Hx/FS Hx/Imm Hx Endocrine/Hematology History: Reports: Hx Thyroid Disease Denies: Hx Diabetes Cardiovascular History: Reports: Hx Atrial Fibrillation, Hx Hypertension Denies: Hx Angina, Hx Coronary Artery Disease - hx. of "left ventricular hypertrophy", Hx Hypercholesterolemia, Hx Myocardial Infarction, Hx Pacemaker/ ICD, Hx Valvular Heart Disease Respiratory History: Reports: Hx Seasonal Allergies Denies: Hx Asthma, Hx Chronic Obstructive Pulmonary Disease (COPD), Other Respiratory Problems/Disorders Musculoskeletal History: Reports: Hx Arthritis, Hx Back Problems, Hx Osteoporosis Sensory History: Reports: Hx Cataracts, Hx Contacts or Glasses, Hx Hearing Problem Denies: Hx Hearing Aid, Other Sensory Impairments Opthamlomology History: Reports: Hx Cataracts, Hx Contacts or Glasses Denies: Other Sensory Impairments Psychiatric History: Reports: Hx Anxiety, Hx Depression Denies: Hx Panic Disorder, Hx Suicide Attempt - Cancer History Cancer Type, 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 GALLBLADDER. THYROIDECTOMY. TONSILECTOMY Hx Anesthesia Reactions: No Infectious Disease History: Denies: Hx Clostridium Difficile, Hx Hepatitis, Hx Human Immunodeficiency Virus (HIV), Hx of Known/Suspected MRSA, Hx Shingles, Hx Tuberculosis, Hx Known/ Suspected VRE, Hx Known/Suspected VRSA, History Other Infectious Disease - Family History Known Family History: Positive: Cardiac Disease, Hypertension, Other - Mother: TIAs - Social History Lives: [facility] - [facility] Alcohol Use: None Hx Substance Use: No Substance Use Type: Reports: None Hx Tobacco Use: No Smoking Status (MU): Never Smoked Tobacco Review of Systems Constitutional: Other - decreased PO intake, weight loss Negative: Fever, Chills Cardiovascular: Negative Respiratory: Negative Negative: Abdominal Pain Positive: Weakness - left sided, Numbness - left fingers Psychological: Other - SI thoughts and plan Positive: Depressed All Other Systems Reviewed And Are Negative: Yes Physical Exam - Summary Physical Exam Summary: Appearance: Chronically ill-appearing, no pain distress, Well-nourished, but significant weight loss apparent based on how her clothing fits Skin: Warm, color reflects adequate perfusion Head: Normal Head/Face inspection Eyes: Conjunctiva clear ENT: Normal ENT inspection Neck: Supple, no nodes, no JVD, no bruits Respiratory: Lungs clear, Normal breath sounds, no respiratory distress Cardio: RRR, No murmur, pulses normal, brisk capillary refill Abdomen: soft, diffusely tender in lower quadrants, no guarding, no rebound, no masses, no organomegaly Musculoskeletal: No calf tenderness. Trace edema bilaterally in lower extremities. Unable to lift left leg against gravity and can move left leg on the stretcher, good dorsiflexion and plantarflexion on the left. Full strength and knitter wire mesh of LUE. Neuro Exam: Awake and alert. A&O to name and place, CN II-XII intact, Sensations intact. Unable to lift left leg against gravity, good dorsiflexion and plantarflexion on the left. Psychological: Depressed, admitted prior suicidal ideation. Pt feels hopeful now. GCS: 15 Triage Information Reviewed: Yes Vital Signs On Initial Exam: Initial Vitals Temp Pulse Resp BP Pulse Ox 97.7 F 87 20 149/74 97 08/03/17 13:31 08/03/17 13:31 08/03/17 13:31 08/03/17 13:31 08/03/17 13:31 Vital Signs Reviewed: Yes - Parachute Coma Scale Best Eye Response: 4 - Spontaneous Best Motor Response: 6 - Obeys Commands Best Verbal Response: 5 - Oriented Diagnostics - Vital Signs Vital Signs Temp Pulse Resp BP Pulse Ox 08/03/17 13:31 97.7 F 87 20 149/74 97 - Laboratory Lab Results: Lab Results 08/03/17 08/03/17 08/03/17 Range/Units 14:10 14:10 14:10 WBC 20.0 H (3.5-10.8) 10^3/ul RBC 4.03 (4.0-5.4) 10^6/ul Hgb 11.4 L (12.0-16.0) g/dl Hct 35 (35-47) % MCV 86 (80-97) fL MCH 28 (27-31) pg MCHC 33 (31-36) g/dl RDW 15 (10.5-15) % Plt Count 479 H (150-450) 10^3/ul MPV 7 L (7.4-10.4) um3 Neut % (Auto) 92.0 H (38-83) % Lymph % (Auto) 3.4 L (25-47) % Marquette % (Auto) 4.2 (1-9) % Eos % (Auto) 0.1 (0-6) % Baso % (Auto) 0.3 (0-2) % Absolute Neuts (auto) 18.4 H (1.5-7.7) 10^3/ul Absolute Lymphs (auto) 0.7 L (1.0-4.8) 10^3/ul Absolute Monos (auto) 0.8 (0-0.8) 10^3/ul Absolute Eos (auto) 0 (0-0.6) 10^3/ul Absolute Basos (auto) 0.1 (0-0.2) 10^3/ul Absolute Nucleated RBC 0.02 10^3/ul Nucleated RBC % 0.1 INR (Anticoag Therapy) 0.96 (0.77-1.02) APTT 18.6 L (26.0-36.3) seconds Sodium 130 L (133-145) mmol/L Potassium 3.5 (3.5-5.0) mmol/L Chloride 96 L (101-111) mmol/L Carbon Dioxide 29 (22-32) mmol/L Anion Gap 5 (2-11) mmol/L BUN 19 (6-24) mg/dL Creatinine 0.65 (0.51-0.95) mg/dL Est GFR ( Amer) 112.0 (>60) Est GFR (Non-Af Amer) 87.0 (>60) BUN/Creatinine Ratio 29.2 H (8-20) Glucose 94 (70-100) mg/dL Lactic Acid (0.5-2.0) mmol/L Calcium 9.2 (8.6-10.3) mg/dL Total Bilirubin 0.50 (0.2-1.0) mg/dL AST 13 (13-39) U/L ALT 8 (7-52) U/L Alkaline Phosphatase 198 H (34-104) U/L Total Creatine Kinase < 10 L (10-223) U/L Troponin I 0.16 H* (<0.04) ng/mL Total Protein 5.5 L (6.4-8.9) g/dL Albumin 2.4 L (3.2-5.2) g/dL Globulin 3.1 (2-4) g/dL Albumin/Globulin Ratio 0.8 L (1-3) TSH 22.14 H (0.34-5.60) mcIU/mL Salicylates < 2.50 (<30) mg/dL Acetaminophen < 15 mcg/mL Serum Alcohol < 10 (<10) mg/dL 08/03/ Range/Units 14:10 WBC (3.5-10.8) 10^3/ul RBC (4.0-5.4) 10^6/ul Hgb (12.0-16.0) g/dl Hct (35-47) % MCV (80-97) fL MCH (27-31) pg MCHC (31-36) g/dl RDW (10.5-15) % Plt Count (150-450) 10^3/ul MPV (7.4-10.4) um3 Neut % (Auto) (38-83) % Lymph % (Auto) (25-47) % Marquette % (Auto) (1-9) % Eos % (Auto) (0-6) % Baso % (Auto) (0-2) % Absolute Neuts (auto) (1.5-7.7) 10^3/ul Absolute Lymphs (auto) (1.0-4.8) 10^3/ul Absolute Monos (auto) (0-0.8) 10^3/ul Absolute Eos (auto) (0-0.6) 10^3/ul Absolute Basos (auto) (0-0.2) 10^3/ul Absolute Nucleated RBC 10^3/ul Nucleated RBC % INR (Anticoag Therapy) (0.77-1.02) APTT (26.0-36.3) seconds Sodium (133-145) mmol/L Potassium (3.5-5.0) mmol/L Chloride (101-111) mmol/L Carbon Dioxide (22-32) mmol/L Anion Gap (2-11) mmol/L BUN (6-24) mg/dL Creatinine (0.51-0.95) mg/dL Est GFR ( Amer) (>60) Est GFR (Non-Af Amer) (>60) BUN/Creatinine Ratio (8-20) Glucose (70-100) mg/dL Lactic Acid 1.2 (0.5-2.0) mmol/L Calcium (8.6-10.3) mg/dL Total Bilirubin (0.2-1.0) mg/dL AST (13-39) U/L ALT (7-52) U/L Alkaline Phosphatase (34-104) U/L Total Creatine Kinase (10-223) U/L Troponin I (<0.04) ng/mL Total Protein (6.4-8.9) g/dL Albumin (3.2-5.2) g/dL Globulin (2-4) g/dL Albumin/Globulin Ratio (1-3) TSH (0.34-5.60) mcIU/mL Salicylates (<30) mg/dL Acetaminophen mcg/mL Serum Alcohol (<10) mg/dL Result Diagrams: 08/04/17 10:43 08/03/17 14:10 Lab Statement: Any lab studies that have been ordered have been reviewed, and results considered in the medical decision making process. - Radiology Chest XR Xray Interpretation: No Acute Changes - IMPRESSION: Stigmata of obstructive lung disease. No acute pulmonary or cardiac process evident. Dr. Lopez has reviewed this radiology report. Radiology Interpretation Completed By: Radiologist - CT Brain CT CT Interpretation: No Acute Changes - IMPRESSION: negative for intracranial hemorrhage or CT stigmata of ischemic infarct. Negative exam. Dr. Lopez has reviewed this radiology report. CT Interpretation Completed By: Radiologist - EKG 13:49 Cardiac Rate: NL EKG Rhythm: Sinus Rhythm - at 88 bpm EKG Interpretation: Nl AV IV CT. Normal QTc. Normal axis. No acute changes. EKG Comparison: No Significant Change - no change from prior EKG done on . NIH Scale - NIH Scale Level of Consciousness: Alert/Keenly Responsive Ask Patient the Month and His/Her Age: Both Correct Ask Pt to Open/Close Eyes and Veterans Service Officer/Release Non-Paretic Hand: Both Correctly Best Gaze (Only Horizontal Eye Movement): Normal Visual Field Testing: No Visual Loss Facial Paresis-Pt to Smile & Close Eyes or Grimace Symmetry: Normal/Symmetrical Motor Function - Right Arm: No Drift-Holds 10 Seconds Motor Function - Left Arm: No Drift-Holds 10 Seconds Motor Function - Right Leg: No Drift-Holds 10 Seconds Motor Function - Left Leg: Drifts LT 10 seconds Limb Ataxia-Must be out of Proportion to Weakness Present: Absent Sensory (Use Pinprick to Test Arms/Legs/Trunk/Face): Normal Best Language (Describe Picture, Name Items): No Aphasia Dysarthria (Read Several Words): Normal Extinction and Inattention: No Abnormality Total Score: 1 Course/Dx - Course Course Of Treatment: Pt medications reviewed this visit. Allergies noted. High blood pressure noted. EKG shows normal sinus rhythm at 88 bpm, normal AV IV conduction time, normal QTc, normal axis, no acute changes. No change from prior EKG done on 06/30/17. Chest XR shows stigmata of obstructive lung disease. No acute pulmonary or cardiac process evident. Brain CT reveals negative for intracranial hemorrhage or CT stigmata of ischemic infarct. Negative exam. At 14:45 - I'm aware of elevated troponin of 0.16. [14:47] I spoke with Elissa Fam from poison control who reports Bupropion causes fast sodium channel blockade for 24 hours and weakness is not typical. She states that the pt may exhibit mild agitation, tremor, hyperreflexia, and seizure up to 24 hours. If delayed onset, QRS widening may be seen, which can be treated with bolus of bicarb. [15:27] I discussed pt's case with Dr. Etienne, hospitalist, who has agreed to admit the pt. Pt is a complex case because her reported left sided weakness is difficult to time in onset, and is unlikely to be caused by the self reported medication overdose per poison control, however pt's depression may be contributing to general decline. Pt does have hx paroxysmal atrial fibrillation and is not on anticoagulation by pt's choice, so she is at risk for stroke. Code Nelson was not called in the ED because pt's last known well time is greater than 24 hours. After discussion with Dr. Puente and poison control and Dr. Etienne pt will be medically admitted with 1:1 watch until cleared by psychiatry. - Differential Dx Differential Diagnoses Neuro: Positive: Cerebrovascular Accident, Drug Toxicity , Metabolic Abnormality, Transient Ischemic Attack, Other - failure to thrive - Diagnoses Provider Diagnoses: Deliberate medication overdose, Depression, Left-sided weakness, Hypothyroidism - Physician Notifications Discussed Care Of Patient With: Elissa Fam - from Poison Control Time Discussed With Above Provider: 14:47 Instructed by Provider To: Other - I spoke with Elissa Fam from poison control who reports Bupropion causes fast sodium channel blockade for 24 hours and weakness is not typical. She states that the pt may exhibit mild agitation, tremor, hyperreflexia, and seizure up to 24 hours. If delayed onset, QRS widening may be seen which can be treated with bolus bicarb. [15:27] I discussed pt's case with Dr. Etienne, hospitalist, who has agreed to admit the pt. Discharge - Discharge Plan Condition: Guarded Disposition: ADMITTED TO [facility] documentation as recorded by the Tony burns Angela accurately reflects the service I personally performed and the decisions made by me, Katt Lopez MD.
[2017-08-03] MEDS ORDERED: Magnesium CITRATE* 300 ML BTL PO PRN (18:00)
[2017-08-03] MEDS: Enoxaparin(*) 40 MG/0.4 ML SYR SUBCUT SCH (18:18)
--- NOTE | 2017-08-03 20:52 | RAD ---
INDICATION: Left arm and leg weakness. COMPARISON: Comparison is made with a prior CT of the brain from August 03, 2017. TECHNIQUE: Sagittal T1, axial T1, T2, susceptibility, FLAIR and diffusion weighted images were obtained. FINDINGS: The ventricles, cisterns and sulci appear prominent consistent with age-related atrophy. There are small focal areas of increased signal intensity on T2-weighted images present within the subcortical and periventricular white matter most consistent with mild chronic small vessel ischemic changes. No other focal abnormality or mass effect is seen. No areas of restricted diffusion are present. There is no evidence for infarct or hemorrhage. There are small effusions within the mastoid air cells. The paranasal sinuses appear grossly clear. IMPRESSION: 1. NO EVIDENCE FOR ACUTE INTRACRANIAL NORMALITY. 2. EFFUSIONS WITHIN THE MASTOID AIR CELLS.
--- NOTE | 2017-08-03 21:09 | RAD ---
INDICATION: Left arm and leg weakness. COMPARISON: There are no prior studies available for comparison. TECHNIQUE: Axial T2 and sagittal T1 and T2 and coronal T2-weighted images of the cervical spine were obtained. FINDINGS: The vertebra are in normal alignment. No significant focal bony abnormality or fracture is seen. The craniocervical junction is within normal limits. The spinal cord is normal in shape and signal intensity. At the C2-C3 level there is mild posterior uncinate process spurring and hypertrophic change within the facet joints. No spinal canal narrowing is present. There is mild neural foraminal narrowing on the left side. At the C3-C4 level there is mild posterior uncinate process spurring and hypertrophic changes within the facet joints. No spinal canal narrowing is present. There is mild to moderate bilateral neural foraminal narrowing. At the C4-C5 level there is mild posterior uncinate process spurring associated with a mild broad-based disc bulge which causes mild spinal canal narrowing. There is mild bilateral neural foraminal narrowing. At the C5-C6 level there is mild posterior uncinate process spurring associated with a mild broad-based disc bulge. There are mild hypertrophic changes within the facet joints. There is mild spinal canal narrowing and moderate bilateral neural foraminal narrowing. At the C6-C7 level there is mild posterior uncinate process spurring. No spinal canal narrowing is present. There is mild to moderate bilateral neural foraminal narrowing. IMPRESSION: MILD TO MODERATE CERVICAL SPONDYLOSIS.
[2017-08-03] MEDS: Metoprolol Succinate XL TAB* 25 MG PO SCH (21:15)
[2017-08-03] MEDS: Polyethylene Glycol 3350* 17 GM PACKET PO SCH (21:15)
[2017-08-03] MEDS: PTO:Latanoprost 0.005%* 2.5 ml BTL BOTH EYES SCH (21:50)
--- NOTE | 2017-08-03 22:20 | CONS ---
CONSULTATION REPORT: DATE OF CONSULT: 08/03/17 PATIENT OF: Dr. Etienne and Dr. Delcid, and Dr. Viera. HISTORY OF PRESENT ILLNESS: This is an 82-year-old woman I am asked to evaluate for progressive weakness as well as since the past day left hand numbness and left leg weakness. The history is confusing and it contradicts somewhat different from what is in the chart. The daughter and the patient say that since June, she has had slowly progressive weakness and imbalance with wide-based gait and has been using walker for the past month that slowly gotten worse and she has not walked in the past day or two at all even with a walker, and in addition, she has developed this numbness in three middle fingers of her left hand since either earlier today or last night and today her left leg feels weaker than usual. There is a hospital note by Dr. Aguayo from 06/29/17, who notes that she was being admitted for generalized weakness and was progressively weak at that point and was unable to transfer from her bed and had not been able to stand up. However, she improved from that point and no specific neurological cause of her weakness was found then and apparently as best I can tell, she had made a recovery and then became progressively worse over the past month as best I can tell by the story. There have been no bowel or bladder problems. No significant headache. PAST MEDICAL HISTORY: Significant for Graves' disease with hypothyroidism followed by Leonides's thyroiditis and she has had thyroid cancer, status post thyroidectomy. She has hypertension, paroxysmal atrial fibrillation, anxiety, glaucoma, and macular degeneration. MEDICATIONS: At home, include: 1. Wellbutrin 100 mg at bedtime. It is unclear whether she has taken a larger dose of this. 2. She is also on furosemide 20 mg daily. 3. Metoprolol 12.5 mg daily. 4. Synthroid 50 mcg daily. 5. Losartan 100 mg daily. 6. Toprol 12.5 at bedtime. 7. Eye drops for glaucoma. ALLERGIES: She is allergic to FLUOXETINE, MORPHINE, PROPRANOLOL. FAMILY HISTORY: Noncontributory. SOCIAL HISTORY: She does not smoke or use drugs and occasionally drinks. She lives at [facility]. REVIEW OF SYSTEMS: Negative in all 14 spheres other than the HPI. PHYSICAL EXAM: Temperature 97.7, pulse 86, respirations 18, blood pressure 159/ 72. She is alert and oriented with normal speech and comprehension. Cranial nerves II through XII were intact. Fundi were benign. Motor exam revealed that she had no significant weakness or drift in her either hand. She had 5-/5 strength in the legs. She could clearly move both legs off the bed against gravity and against resistance, but not fully. She said she could not stand. She had decreased sensation to touch in her feet and in the middle few fingers of her left hand. Chest: Clear. Cardiovascular: Regular rate and rhythm at this point. Abdomen is soft with positive bowel sounds. DIAGNOSTIC STUDIES/LAB DATA: Her CT scan does not show any acute findings. Labs include a WBC of 20,000, hematocrit 35, platelet count 479. INR is 0.96, PTT 18.6. Sodium of 130, alk phos 198. Total CPK is less than 10. Troponin 0.16. TSH 22.4. IMPRESSION AND PLAN: It is possible that Ms Vargas has become more weak recently because of her significant hypothyroidism and possibly an infection with elevated white count and platelet count. I defer to Dr. Etienne about optimum management of these issues. I discussed with her and her daughter that it is unlikely to be a stroke even though her acute symptoms are in left leg and left arm. The symptom in the hand is numbness and the symptom in the leg has been subjective increase of weakness in that left leg, although I could not appreciate a [id number] difference. Also, if you have numbness as a symptom of stroke, it usually first includes the thumb not just the middle fingers, but stroke is possible especially since she has atrial fibrillation. It would be reasonable to assess for this. She has a history of lumbar stenosis and that may be contributing, but at her age and with the hand numbness as well, we will screen her for significant cervical stenosis, myelopathy, and we will be getting an MRI scan. If these are negative, we might check nerve conduction studies and lumbar MRI scan if she wants to pursue further tests for diagnostic purposes rather than things that could be likely to lead to specific intervention. I would also check B12 and folate levels on her. Thank you for sharing her case. [id number]/[facility] #: [id number] MINNIE
[2017-08-03 22:23] LABS: Urine Appearance Cloudy; Urine Blood 1+ (Negative); Urine Color Yellow; Urine Ketones 1+ (Negative); Urine Protein 1+(30 mg/dL) (Negative); Urine Specific Gravity 1.018 (1.010-1.030); Urine Urobilinogen Negative (Negative)
[2017-08-03] MEDS: Sodium Phosphate ADULT ENEMA* 118 ml bottle PR PRN (22:26)
[2017-08-03] MEDS: PTO:Dorzolamide 2% OPTH (NF) 10 ML BTL RIGHT EYE SCH (23:49)
[2017-08-04] MEDS: Sodium Phosphate ADULT ENEMA* 118 ml bottle PR PRN (02:01)
[2017-08-04] MEDS: Levothyroxine TAB* 100 MCG TAB PO SCH (05:32)
[2017-08-04] MEDS: Metoprolol Succinate XL TAB* 25 MG PO SCH ×2 (08:49→21:11)
[2017-08-04] MEDS: PTO:Dorzolamide 2% OPTH (NF) 10 ML BTL RIGHT EYE SCH ×3 (08:49→21:11)
[2017-08-04] MEDS: Polyethylene Glycol 3350* 17 GM PACKET PO SCH ×2 (08:49→21:16)
[2017-08-04] MEDS: Losartan TAB* 25 MG PO SCH (08:49)
[2017-08-04 10:56] LABS: Hematocrit 32 % (35-47); Hemoglobin 10.3 g/dl (12.0-16.0); Mean Corpuscular HGB Conc 32 g/dl (31-36); Mean Corpuscular Hemoglobin 27 pg (27-31); Mean Corpuscular Volume 85 fL (80-97); Mean Platelet Volume 7 um3 (7.4-10.4); Platelet Count 445 10^3/ul (150-450); Red Blood Count 3.77 10^6/ul (4.0-5.4); Red Cell Distribution Width 16 % (10.5-15); White Blood Count 21.1 10^3/ul (3.5-10.8)
[2017-08-04 11:18] LABS: Monocytes % 3 % (0-13)
[2017-08-04 11:19] LABS: ABS Neutrophils 19.8 10^3/ul (1.5-7.7)
[2017-08-04 11:20] LABS: ABS Basophils 0 10^3/ul (0-0.2); ABS Eosinophils 0 10^3/ul (0-0.6); ABS Lymphocytes 0.6 10^3/ul (1.0-4.8); ABS Monocytes 0.6 10^3/ul (0-0.8)
[2017-08-04] MEDS: cefTRIAXone(*) 1 GM in NS 0.9% 50 ML* 50 ML IVPB SCH (13:26)
[2017-08-04] MEDS: Enoxaparin(*) 40 MG/0.4 ML SYR SUBCUT SCH (16:19)
--- NOTE | 2017-08-04 20:14 | CONS ---
CONSULTATION REPORT: DATE OF CONSULT: 08/04/17 ATTENDING PHYSICIAN: Dr. Maykel Wilks. CONSULTING PHYSICIAN: Dr. Delvin Nguyễn. REASON FOR CONSULT: Overdose. SUBJECTIVE HISTORY: Psychiatry is asked to see this 82-year-old white female with a history of depression who was brought in by her healthcare proxy complaining of left-sided weakness and difficulty attending to her ADLs. The patient is a resident of the [facility], which is an unassisted snf facility in [facility]. She had last been seen well per Dr. Puente's report the day prior to admission. Dr. Puente stated that she had previously been treated with antidepressants, which had been stopped, but then the patient decided to retake them. In fact, she admitted to the emergency room clinicians that she took several extra bupropion pills yesterday evening in an attempt to harm herself. When I met with her, she is calm, cooperative and greets me, stating "a lot of this is due to depression." She does indicate that she has had several stressors recently such as limited social support in the area with very few family and many recently friends and she is having increasing trouble ambulating around her small apartment, getting out of bed and taking care of her activities of daily living "it is just awful." All I do is watch TV in my bedroom. I noticed that although she has a constricted affect at the beginning of our encounter, as our conversation proceeds she becomes more bright , becoming cheerful, for example, when she discusses her old job working for a [employer] facility in [place], [place]. To me, she admits to taking approximately 6 to 7 extra tablets of 100 mg immediate release bupropion. This attempt appears to have low lethality, but did have significant intentionality from the standpoint that she thought she would actually taking this. At this time, however, she denies suicidal ideation stating that she is "hopeful for the past." She states "I know I cannot go back to my apartment, I guess I will have to try a care home." Symptomatically, she denies sleep disturbance or guilt, but she does endorse some mild anhedonia, poor energy, difficulty concentrating, loss of appetite, some psychomotor retardation and recent thoughts that her life would be better if it was over. She denies any history of brianna in the past or psychosis. PSYCHIATRIC HISTORY: The patient has a long history of relapsing, remitting, depressive episodes. She has been treated in the past with bupropion by Dr. Enriqueta Puente, who is her primary care physician. I tried to reach Dr. Puente but she is out of the office until TuesdayAugust 08. At any rate, the patient denies any further psychiatric care in the community. She denies any history of violence towards others or homicidality. She notes she has been on other antidepressants, but cannot remember the name of any of these. She has had no prior psychiatric hospitalizations. She does state in the past 2 years that she has had between 2 and 3 suicidal overdoses usually with less than a handful of tablets. SUBSTANCE ABUSE HISTORY: She endorses social alcohol consumption, but not in the last several years. She was never a smoker and never did illicit drugs. PAST MEDICAL HISTORY: Significant for scoliosis, degenerative disk disease, glaucoma, macular degeneration, Graves' disease followed by thyroid cancer and status post thyroidectomy, hypertension, and paroxysmal atrial fibrillation. ALLERGIES: The patient is allergic to FLUOXETINE, MORPHINE, and PROPRANOLOL. FAMILY HISTORY: The patient's mother had depression and her sister had alcoholism. SOCIAL HISTORY: The patient was born and raised in [place]. She does have an older sister who is now . 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 Thereafter, she got , but later in her mid 50s. She has no children, although she did lose 2 pregnancies to spontaneous . 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 She was raised jehovah's witness, but does not currently practice any oriental orthodox. She self- identifies as single, heterosexual and not currently sexually active. She has no significant history of legal problems. Her healthcare proxy is a woman, named Minda Salinas, who was present at the beginning of our conversation, but then leaves the room as we speak. MENTAL STATUS EXAMINATION: The patient is a tall, aging, white haired, white female, who is wearing eye glasses. She is quite hard of hearing and also squints at times during our conversation. She is calm, cooperative, easy to establish a rapport with. Her speech has a normal rate, tone and volume. She does display some evidence of hypokinesis particularly towards the beginning of our encounter. Initially, her mood is depressed with a constrictive affect, although her affect noticeably brightens as our conversation continues. She denies suicidal ideations at this time stating that she feels "hopeful" about the future. She similarly denies homicidality. She denies auditory or visual hallucinations. Insight and judgement are somewhat limited given her choice of overdosing on medications prior to this admission. Cognitively, she is awake and alert, oriented x4 and seems to have an average intellect by virtue of vocabulary and educational background. DIAGNOSES: Are as follows: [place] I: Major depressive disorder, recurrent, severe without psychotic features. 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 ASSESSMENT: The patient is an 82-year-old white female with a history of recurrent depression who arrived to the ER with her healthcare proxy complaining of left-sided weakness and it was later discovered that she had had an intentional overdose between 6 and 7 tablets of 100 mg strength immediate release bupropion. The patient states that she now feels that this was a mistake and that she is glad to be alive. She is hopeful about the future because she sees this hospitalization as a means of getting out of her unassisted living apartment and into a fpc facility which will help her with socialization as well as getting around. I did offer her voluntary admission to the behavioral science unit, which she is declining at this time, but she does agree to discuss this further with me when I followup with her tomorrow. In addition, I also recommend a change in medications from bupropion to mirtazapine given that fact it would help with her sleep and appetite. Similarly, she would like to think about this and discuss it further tomorrow. RECOMMENDATIONS TO PRIMARY TEAM: I do not believe that this patient represents an immediate threat to herself and we can cancel her one-to-one observational status. Psychiatry will continue to follow daily. It is likely that tomorrow I will again offer her change in antidepressant medications as well as a voluntary admission to the behavioral science unit. If she refuses these, then I think the best that we can do for this patient is to provide social work support in terms of getting her placed either in a subacute rehab versus a fpc facility as she is clearly unable to meet her basic needs in an individual housing arrangement at this time. Psychiatry will continue to follow. Thank you for the interesting consult. [id number]/[facility] #: [id number] MINNIE
--- NOTE | 2017-08-04 20:30 | PN ---
Subjective Date of Service: 08/04/17 Interval History: Additional Hx provided by medical proxy Minda Salinas. Pt had stopped eating/ drinking and taking meds in early June. Was only stopped from taking more wellbutrin by a concerned neighbor at [facility]. Just so frustrated by inability to walk. [place] like legs would buckle when up to commode and ultimately refused to work with PT much. Lost 15 lbs over few weeks. Weak. Frustrated with nocturia(only) no matter when she takes her diurectics. multiple BMs. Started on cftx for potential UTI. Afebrile, Leukoctosis 20s. Brain MRI no acute CVA. Social History: Findings - Lives alone. No alcohol or tobacco use. No children or siblings living. Her friend Minda Salinas is her SDM. Past Medical History: Findings - Graves's disease and thryoid cancer, thyroid surgery. ? hx PAF. Glaucoma. macular degeneration. Objective Active Medications: Dorzolamide HCl (Trusopt 2% Opth (Nf)) 1 drop RIGHT EYE TID [facility] PRN Reason: Protocol Last Admin: 08/04/17 13:26 Dose: 1 drop Enoxaparin Sodium (Lovenox(*)) 40 mg SUBCUT Q24H [facility] Last Admin: 08/04/17 16:19 Dose: 40 mg Ceftriaxone Sodium 1 gm/ (Sodium Chloride) 50 mls @ 200 mls/hr IVPB Q24H [facility] Last Admin: 08/04/17 13:26 Dose: 200 mls/hr Latanoprost (Xalatan 0.005%*) 1 drop BOTH EYES BEDTIME [facility] PRN Reason: Protocol Last Admin: 08/03/17 21:50 Dose: 1 drop Levothyroxine Sodium (Synthroid Tab*) 100 mcg PO DAILY@0600 [facility] Last Admin: 08/04/17 05:32 Dose: 100 mcg Losartan Potassium (Cozaar Tab*) 100 mg PO DAILY [facility] Last Admin: 08/04/17 08:49 Dose: 100 mg Magnesium Citrate (Citrate Of Magnesia*) 300 ml PO ONCE PRN PRN Reason: CONSTIPATION Metoprolol Succinate (Toprol Xl Tab*) 12.5 mg PO QAM [facility] Last Admin: 08/04/17 08:49 Dose: 12.5 mg Metoprolol Succinate (Toprol Xl Tab*) 12.5 mg PO BEDTIME [facility] Last Admin: 08/03/17 21:15 Dose: 12.5 mg Polyethylene Glycol/Electrolytes (Miralax*) 17 gm PO 0800,2100 [facility] Last Admin: 08/04/17 08:49 Dose: 17 gm Sodium Biphosphate/Sodium Phosphate (Fleet Enema*) 1 bottle TX Q3H PRN PRN Reason: CONSTIPATION Last Admin: 08/04/17 02:01 Dose: 1 bottle Vital Signs - 8 hr 08/04/17 15:34 Temperature 97.5 F Pulse Rate 87 Respiratory 20 Rate Blood Pressure 145/54 (mmHg) O2 Sat by Pulse 96 Oximetry Oxygen Devices in Use Now: None Appearance: NAD, anxious Eyes: No Scleral Icterus, PERRLA Ears/Nose/Mouth/Throat: NL Teeth, Lips, Gums, Mucous Membranes Moist Neck: NL Appearance and Movements; NL JVP Respiratory: Symmetrical Chest Expansion and Respiratory Effort, Clear to Auscultation Cardiovascular: NL Sounds; No Murmurs; No JVD, - - irregularly irregular. Abdominal: NL Sounds; No Tenderness; No Distention, No Hepatosplenomegaly Extremities: - - 2+ edema Skin: No Rash or Ulcers, No Nodules or Sclerosis Neurological: Alert and Oriented x 3 Result Diagrams: 08/04/17 10:43 08/03/17 14:10 Additional Lab and Data: Laboratory Results - last 24 hr 08/03/17 08/04/17 08/04/17 14:10 10:43 10:43 WBC 21.1 H RBC 3.77 L Hgb 10.3 L Hct 32 L MCV 85 MCH 27 MCHC 32 RDW 16 H Plt Count 445 MPV 7 L Absolute Neuts (auto) 19.8 H Absolute Lymphs (auto) 0.6 L Absolute Monos (auto) 0.6 Absolute Eos (auto) 0 Absolute Basos (auto) 0 Absolute Nucleated RBC Not Reportable Immature Gran % 2 Neutrophils % 92 H Lymphocytes % 3 L Monocytes % 3 Myelocytes % 2 H Normal RBC Morphology Normal Sodium 130 L Potassium 3.5 Chloride 96 L Carbon Dioxide 29 Anion Gap 5 BUN 19 Creatinine 0.65 Est GFR ( Amer) 112.0 Est GFR (Non-Af Amer) 87.0 BUN/Creatinine Ratio 29.2 H Glucose 94 Calcium 9.2 Total Bilirubin 0.50 AST 13 ALT 8 Alkaline Phosphatase 198 H Total Creatine Kinase < 10 L Troponin I 0.16 H* 0.11 H* Total Protein 5.5 L Albumin 2.4 L Globulin 3.1 Albumin/Globulin Ratio 0.8 L Vitamin B12 1182 H Folate 8.05 TSH 22.14 H Salicylates < 2.50 Acetaminophen < 15 Serum Alcohol < 10 Assess/Plan/Problems-Billing Assessment: 82 yo female PMH anxiety, depression, HTN, hypothyroidism, Atrial Fibrillation p /w buproprion intentional overdose, recent FTT, generalized weakness. On CFTX for potential UTI. - Patient Problems (1) Suicidal behavior Current Visit: Yes Status: Acute Code(s): R46.89 - OTHER SYMPTOMS AND SIGNS INVOLVING APPEARANCE AND BEHAVIOR SNOMED Code(s): 129836448 Comment: Wellbutrin overdose. Appreciate Psychiatry recs - Dr. Nguyễn to discuss with Dr. Puente. Not willing for voluntary psych addmision currently. (2) Atrial fibrillation Current Visit: Yes Status: Acute Code(s): I48.91 - UNSPECIFIED ATRIAL FIBRILLATION SNOMED Code(s): 96253072 Comment: Chronic. Has never been on a/c. f/u with Dr. Caldwell as outpatient. Mg> 2, K>4. Tele continue metoprolol 12.5mg BID. (3) Fecal impaction Current Visit: Yes Status: Acute Code(s): K56.41 - FECAL IMPACTION SNOMED Code(s): 76880798 Comment: s/p Disimpaction ordered, continue PEG 17 gm bid. (4) HTN (hypertension) Current Visit: Yes Status: Acute Code(s): I10 - ESSENTIAL (PRIMARY) HYPERTENSION SNOMED Code(s): 86460602 Comment: Continue losartan, metoprolol. (5) Hypothyroid Current Visit: Yes Status: Acute Code(s): E03.9 - HYPOTHYROIDISM, UNSPECIFIED SNOMED Code(s): 44298434 Comment: TSH 22 on 08/03/17. Extra levothyroxine 50 mcg 08/03, continue increased dose of 100 mcg. (6) Left hemiparesis Current Visit: Yes Status: Acute Code(s): G81.94 - HEMIPLEGIA, UNSPECIFIED AFFECTING LEFT NONDOMINANT SIDE SNOMED Code(s): 504288066 Comment: Subtle changes per Dr. Goel. No CVA on MRI. F/u b12, folate. Hold off on EMG or L spine MRI. (7) Edema Current Visit: Yes Status: Acute Code(s): R60.9 - EDEMA, UNSPECIFIED SNOMED Code(s): 399284771 Comment: ECHO February 2016 EF 55-60%, consider repeat. Get BNP lasix 20mg daily (8) FTT (failure to thrive) in adult Current Visit: Yes Status: Acute Comment: UA with WBC, bacteria, f/u UCx. emperic CFTX. Status and Disposition: Changed to inpatient status. Will need SNF Attending: Maykel Wilks
[2017-08-04] MEDS: PTO:Latanoprost 0.005%* 2.5 ml BTL BOTH EYES SCH (21:11)
[2017-08-05] MEDS: Levothyroxine TAB* 100 MCG TAB PO SCH (05:50)
[2017-08-05 06:06] LABS: ABS Basophils 0.1 10^3/ul (0-0.2); ABS Eosinophils 0.1 10^3/ul (0-0.6); ABS Lymphocytes 0.8 10^3/ul (1.0-4.8); ABS Neutrophils 14.7 10^3/ul (1.5-7.7); ABS Nucleated RBC 0.01 10^3/ul; Eosinophil % 0.5 % (0-6); Hematocrit 31 % (35-47); Hemoglobin 10.1 g/dl (12.0-16.0); Mean Corpuscular HGB Conc 33 g/dl (31-36); Mean Corpuscular Hemoglobin 28 pg (27-31); Mean Corpuscular Volume 85 fL (80-97); Mean Platelet Volume 7 um3 (7.4-10.4); Nucleated Red Blood Cells % 0; Platelet Count 439 10^3/ul (150-450); Red Blood Count 3.64 10^6/ul (4.0-5.4); Red Cell Distribution Width 15 % (10.5-15); White Blood Count 16.7 10^3/ul (3.5-10.8)
[2017-08-05] MEDS ORDERED: Diltiazem IV* 5 MG/ML 5 ML VIAL (for loading dose/IV Push) (25 MG) IV SLOW PU ONE ×2 (09:04→09:34)
[2017-08-05] MEDS ORDERED: Magnesium Sulfate IV* 3 GM in NS 0.9% 100 ML* 100 ML IVPB ONE (10:00)
[2017-08-05] MEDS ORDERED: Magnesium Sulfate 2 GM IV IVPB ONE (10:00)
[2017-08-05] MEDS ORDERED: Magnesium Sulfate 1 GM IV* 1 GM/100 ML BAG IV ONE (11:00)
[2017-08-05] MEDS ORDERED: Perflutren Lipid Microsphere* 3 ML VIAL ONE (11:11)
[2017-08-05] MEDS: Polyethylene Glycol 3350* 17 GM PACKET PO SCH ×2 (11:55→21:14)
[2017-08-05] MEDS: PTO:Dorzolamide 2% OPTH (NF) 10 ML BTL RIGHT EYE SCH ×3 (11:56→21:09)
[2017-08-05] MEDS: Metoprolol Succinate XL TAB* 25 MG PO SCH ×2 (12:14→21:11)
--- NOTE | 2017-08-05 12:14 | PN ---
NEUROLOGICAL FOLLOWUP NOTE: DATE OF SERVICE: 08/04/17 HISTORY: She remains with some numbness in the middle finger of her left hand as well as weakness in her legs. She notes now that years ago she had a neuro testing that apparently was abnormal and was told she had some degree of neuropathy, details are not specific. She has no new complaints. MEDICATIONS: Include: 1. Ceftriaxone. 2. Lovenox. 3. Eye drops. Her Synthroid was increased following her high TSH. Cozaar and metoprolol are being continued. PHYSICAL EXAMINATION: Temperature 97.4, pulse 84, respirations 16, blood pressure 149/53. She is al ert and oriented with normal speech and comprehension. Cranial nerves II through XII were intact. L eg strength remained 5-/5. Strength in her arms was normal. Chest: Clear. Cardiovascular: Regula r rate and rhythm. DIAGNOSTIC STUDIES: I reviewed her MRI scan of her brain and cervical spine. MRI of her brain did n ot show any acute stroke. There was some small vessel ischemic white matter disease. Her cervical s pine did not show any significant cord compression, but there was multilevel foraminal narrowing with some moderate central stenosis. I discussed with Francine in detail that she did not have a stroke, either her clinical symptoms do n ot fit that well and her MRI scan was negative and that it is possible that some of her increasing we akness is her hypothyroidism, which is now being more aggressively treated. I discussed that other c ontributing factors may be a peripheral neuropathy in her legs and we could do EMG nerve conduction s walt, she did not want to pursue at this time. I have asked Dr. Etienne to send off B12 and folate, a nd I will discuss this with Dr. Wilks. I also discussed that getting a lumbar MRI scan would likely s how multi-level disk disease, which could be contributing to her leg weakness but she is not interest ed in surgery and does not want to pursue MRI scan. I think from a most practical point of view, she should have physical therapy and may need a rehab course possibly in the nursing facility. Thank you for sharing her case. [id number]/[facility] #: [id number]
[2017-08-05] MEDS: Losartan TAB* 25 MG PO SCH (12:20)
[2017-08-05] MEDS: cefTRIAXone(*) 1 GM in NS 0.9% 50 ML* 50 ML IVPB SCH (14:35)
--- NOTE | 2017-08-05 15:21 | ECHO ---
Patient: JULIO MATHEWS [facility] Rec#: [id number] : 1935 Date: 08/05/2017 Age: 82y Height: 177.8 cm / 70.0 in Weight: 82.6 kg / 182.1 lbs Sex: F BSA: 2 Room#: 402 Admit Date#: 08/04/2017 Type: Inpatient Referring: Maykel Wilks Reading: Akiko Lares MD Director Banking: Sarina Figueroa RN RDCS CC: Enriqueta Puente MD Transthoracic Echocardiogram Indication: CHF BP: 152/61 HR: 88 Rhythm: NSR with PVCs Findings History: HTN, PAF, thyroid disease, thyroid cancer S/P thyroidectomy, anxiety, depression, apparent intentional overdose of bupropion Technical Comments: The study quality is fair. The study is technically limited due to patient body habitus. The study was technically limited due to the patient's inability to lay in the left lateral decubitus position. Completed at 1500. Left Ventricle: The left ventricular chamber size is normal.False tendon noted in the apex, confirmed with echo contrast. Left ventricular systolic function is at the lower limits of normal. septal dysynchrony noted. The estimated ejection fraction is 50-55%. Normal left ventricular diastolic filling is observed. Left Atrium: The left atrial chamber size is normal. Right Ventricle: The right ventricular cavity size is normal. The right ventricular global systolic function is normal. Right Atrium: The right atrial cavity size is normal. Aortic Valve: The aortic valve is trileaflet. The aortic valve leaflets are mildly thickened. There is no evidence of aortic regurgitation. There is no evidence of aortic stenosis. Mitral Valve: There is mitral annular calcification. The mitral valve leaflets are mildly thickened. There is trace to mild mitral regurgitation.two small jets, one central, one medial. There is no evidence of mitral stenosis. Tricuspid Valve: The tricuspid valve leaflets are normal. There is trace to mild tricuspid regurgitation. Unable to estimate the right ventricular systolic pressure. Pulmonic Valve: The pulmonic valve structure is not well visualized. There is trace to mild pulmonic regurgitation. There is no pulmonic stenosis. Pericardium: There is no significant pericardial effusion. A pericardial fat pad is visualized. Aorta: There is no dilatation of the ascending aorta. The aortic arch is not well visualized. There is no dilation of the aortic root. Pulmonary Artery: The main pulmonary artery is not well visualized. Venous: The inferior vena cava is dilated. There is less than 50% respiratory change in the inferior vena cava dimension. Contrast: Definity was used to optimize study. A total of 3 ml of diluted Definity was given IV. Conclusions The left ventricular chamber size is normal. Left ventricular systolic function is at the lower limits of normal. septal dysynchrony noted. The estimated ejection fraction is 50-55%. The right ventricular global systolic function is normal. The aortic valve leaflets are mildly thickened with normal function. There is trace to mild mitral regurgitation. There is trace to mild tricuspid regurgitation. Compared with prior study of 02/25/16, ventricular and valvular function are stable. PA pressure previously 43 mmHg, unable to compare. Measurements Name Value Normal Range RVDdMajor (2D) 3 cm (2.2 - 4.4) RAd ISD 4CH 4.7 cm (3.4 - 4.9) RA (A4C)W 3.2 cm (2.9 - 4.6) IVSd (2D) 1 cm (0.6 - 1) LVPWd (2D) 1 cm (0.6 - 1) LVIDd (2D) 4 cm (3.6 - 5.4) LVIDs (2D) 3.3 cm - LV FS (2D) 18 % (25 - 45) Aortic Annulus 2 cm (1.4 - 2.6) Ao root diameter (2D) 3.4 cm (2.1 - 3.5) Ascending Ao 3.3 cm (2.1 - 3.4) Aortic arch 2 cm (1.8 - 3.4) LA dimension (AP) 2D 2.5 cm (2.3 - 3.8) LAd ISD 4CH 4.8 cm (2.9 - 5.3) LA ISD 4CH W 4.5 cm (2.5 - 4.5) Name Value Normal Range LA ESV SP 4CH (A/L) 63 ml - LA ESV SP 2CH (A/L) 42 ml - LA ESV BP (A/L) 54 ml - LA ESV BP (A/L) index 26.9 ml/m2 - LA ESV SP 4CH (MOD) 55 ml - LA ESV SP 2CH (MOD) 38 ml - Name Value Normal Range MV E-wave Vmax 0.62 m/sec - MV deceleration time 186 msec - MV A-wave Vmax 0.83 m/sec - MV E:A ratio 0.74 ratio - LV septal e' Vmax 0.08 m/sec - LV lateral e' Vmax 0.09 m/sec - LV E:e' septal ratio 7.8 ratio - LV E:e' lateral ratio 6.9 ratio - Name Value Normal Range AV Vmax 1.4 m/sec - AV VTI 27.3 cm - AV peak gradient 8 mmHg - AV mean gradient 4 mmHg - LVOT Vmax 1.1 m/sec - LVOT VTI 20.2 cm - LVOT peak gradient 5 mmHg - LVOT mean gradient 2 mmHg - DAVID Vmax 0.72 m/sec - Name Value Normal Range IVC diameter 2.6 cm - Name Value Normal Range PV Vmax 0.76 m/sec -
[2017-08-05] MEDS: Acetaminophen TAB* 325 MG PO PRN (17:55)
[2017-08-05] MEDS: Enoxaparin(*) 40 MG/0.4 ML SYR SUBCUT SCH (17:56)
[2017-08-05] MEDS: PTO:Latanoprost 0.005%* 2.5 ml BTL BOTH EYES SCH (21:09)
[2017-08-05] MEDS: Cefdinir 250mg/5 ml* 100 ml ORAL.SUSP PO SCH (21:09)
[2017-08-06] MEDS: Levothyroxine TAB* 100 MCG TAB PO SCH (05:26)
[2017-08-06] MEDS: Polyethylene Glycol 3350* 17 GM PACKET PO SCH ×2 (07:53→20:13)
[2017-08-06] MEDS: Acetaminophen TAB* 325 MG PO PRN ×2 (08:01→20:11)
[2017-08-06] MEDS: Cefdinir 250mg/5 ml* 100 ml ORAL.SUSP PO SCH ×2 (08:02→20:13)
[2017-08-06] MEDS: PTO:Dorzolamide 2% OPTH (NF) 10 ML BTL RIGHT EYE SCH ×3 (08:02→20:09)
[2017-08-06] MEDS: Metoprolol Succinate XL TAB* 25 MG PO SCH ×2 (08:02→20:10)
[2017-08-06 09:20] LABS: ABS Basophils 0.1 10^3/ul (0-0.2); ABS Eosinophils 0.1 10^3/ul (0-0.6); ABS Lymphocytes 0.9 10^3/ul (1.0-4.8); ABS Monocytes 0.9 10^3/ul (0-0.8); ABS Neutrophils 13.5 10^3/ul (1.5-7.7); ABS Nucleated RBC 0 10^3/ul; Eosinophil % 0.5 % (0-6); Hematocrit 32 % (35-47); Hemoglobin 10.3 g/dl (12.0-16.0); Lymphocyte % 5.6 % (25-47); Mean Corpuscular HGB Conc 32 g/dl (31-36); Mean Corpuscular Hemoglobin 27 pg (27-31); Mean Corpuscular Volume 85 fL (80-97); Mean Platelet Volume 8 um3 (7.4-10.4); Nucleated Red Blood Cells % 0; Platelet Count 440 10^3/ul (150-450); Red Blood Count 3.74 10^6/ul (4.0-5.4); Red Cell Distribution Width 15 % (10.5-15); White Blood Count 15.3 10^3/ul (3.5-10.8)
[2017-08-06 09:40] LABS: EGFR Non-African American 112.6 (>60)
[2017-08-06] MEDS: Potassium Chlor TAB* 20 MEQ TAB.ER PO SCH ×2 (11:47→13:54)
--- NOTE | 2017-08-06 11:49 | PN ---
Subjective Date of Service: 08/06/17 Interval History: ice and tylenol helped her knee pains. K low to 2.7. Repleted and improved to 3.4. Repleted again. Mg improved 2.0 Able to sleep. MHU transfer did not occur yesterday (? busy in ED) No lightheadedness or palpitations. Social History: Findings - Lives alone. No alcohol or tobacco use. No children or siblings living. Her friend Minda Salinas is her SDM. Past Medical History: Findings - Graves's disease and thryoid cancer, thyroid surgery. ? hx PAF. Glaucoma. macular degeneration. Objective Active Medications: Acetaminophen (Tylenol Tab*) 650 mg PO Q6H PRN PRN Reason: PAIN Last Admin: 08/06/17 08:01 Dose: 650 mg Cefdinir (Omnicef 250 Mg/5 Ml*) 300 mg PO BID [facility] Last Admin: 08/06/17 08:02 Dose: 300 mg Dorzolamide HCl (Trusopt 2% Opth (Nf)) 1 drop RIGHT EYE TID [facility] PRN Reason: Protocol Last Admin: 08/06/17 08:02 Dose: 1 drop Enoxaparin Sodium (Lovenox(*)) 40 mg SUBCUT Q24H [facility] Last Admin: 08/05/17 17:56 Dose: 40 mg Potassium Chloride (Potassium Chloride 10 Meq/50 Ml Ivpremix*) 10 meq in 50 mls @ 50 mls/hr IV Q1H [facility] Stop: 08/06/17 14:59 Latanoprost (Xalatan 0.005%*) 1 drop BOTH EYES BEDTIME [facility] PRN Reason: Protocol Last Admin: 08/05/17 21:09 Dose: 1 drop Levothyroxine Sodium (Synthroid Tab*) 100 mcg PO DAILY@0600 [facility] Last Admin: 08/06/17 05:26 Dose: 100 mcg Magnesium Citrate (Citrate Of Magnesia*) 300 ml PO ONCE PRN PRN Reason: CONSTIPATION Metoprolol Succinate (Toprol Xl Tab*) 12.5 mg PO QAM [facility] Last Admin: 08/06/17 08:02 Dose: 12.5 mg Metoprolol Succinate (Toprol Xl Tab*) 12.5 mg PO BEDTIME [facility] Last Admin: 08/05/17 21:11 Dose: 12.5 mg Polyethylene Glycol/Electrolytes (Miralax*) 17 gm PO 0800,2100 [facility] Last Admin: 08/06/17 07:53 Dose: Not Given Potassium Chloride (Klor Con Er Tab*) 40 meq PO Q1H [facility] Stop: 08/06/17 13:01 Sodium Biphosphate/Sodium Phosphate (Fleet Enema*) 1 bottle IA Q3H PRN PRN Reason: CONSTIPATION Last Admin: 08/04/17 02:01 Dose: 1 bottle Vital Signs - 8 hr 08/06/17 08/06/17 08/06/17 07:28 09:44 11:06 Temperature 97.5 F 97.3 F Pulse Rate 66 63 Respiratory 16 16 18 Rate Blood Pressure 143/54 142/61 (mmHg) O2 Sat by Pulse 99 96 Oximetry Oxygen Devices in Use Now: None Appearance: NAD Eyes: No Scleral Icterus Ears/Nose/Mouth/Throat: NL Teeth, Lips, Gums, Mucous Membranes Moist Respiratory: Symmetrical Chest Expansion and Respiratory Effort, Clear to Auscultation Cardiovascular: NL Sounds; No Murmurs; No JVD, RRR Abdominal: NL Sounds; No Tenderness; No Distention Extremities: - - 1+ edema Neurological: Alert and Oriented x 3, NL Muscle Strength and Tone Result Diagrams: 08/06/17 08:42 08/06/17 14:38 Additional Lab and Data: Laboratory Results - last 24 hr 08/06/17 08/06/17 08/06/17 08:42 08:42 14:38 WBC 15.3 H RBC 3.74 L Hgb 10.3 L Hct 32 L MCV 85 MCH 27 MCHC 32 RDW 15 Plt Count 440 MPV 8 Neut % (Auto) 87.6 H Lymph % (Auto) 5.6 L [place] % (Auto) 5.6 Eos % (Auto) 0.5 Baso % (Auto) 0.7 Absolute Neuts (auto) 13.5 H Absolute Lymphs (auto) 0.9 L Absolute Monos (auto) 0.9 H Absolute Eos (auto) 0.1 Absolute Basos (auto) 0.1 Absolute Nucleated RBC 0 Nucleated RBC % 0 Sodium 137 136 Potassium 2.7 L* 3.4 L Chloride 100 L 100 L Carbon Dioxide 31 31 Anion Gap 6 5 BUN 20 20 Creatinine 0.52 0.66 Est GFR ( Amer) 144.8 110.0 Est GFR (Non-Af Amer) 112.6 85.5 BUN/Creatinine Ratio 38.5 H 30.3 H Glucose 119 H 123 H Uric Acid 3.1 Calcium 8.8 8.6 Magnesium 2.0 Free T4 1.18 H Total T3 0.38 L Microbiology and Other Data: Microbiology 08/03/17 21:35 Urine Urine Culture - Final Assess/Plan/Problems-Billing Assessment: 82 yo female PMH anxiety, depression, HTN, hypothyroidism, b/l knee OA, Atrial Fibrillation p/w buproprion intentional overdose, recent Failure to thrive, generalized weakness. Hypothyroidism with TSH 22. LE edema and knee pains complicating ambulation. Discharge to MHU though have not admitted patient yet. - Patient Problems (1) Suicidal behavior Current Visit: Yes Status: Acute Code(s): R46.89 - OTHER SYMPTOMS AND SIGNS INVOLVING APPEARANCE AND BEHAVIOR SNOMED Code(s): 103783785 Comment: Wellbutrin overdose. Appreciate Psychiatry recs - Dr. Nguyễn recommended 939 involuntary admission to MHU. Planned remeron likely. (2) Atrial fibrillation Current Visit: Yes Status: Acute Code(s): I48.91 - UNSPECIFIED ATRIAL FIBRILLATION SNOMED Code(s): 82404034 Comment: paroxysmal. Complicated by Afib with RVR on 08/05 broke with dilt IV ~12mg. Has never been on a/c. f/u with Dr. Caldwell as outpatient. Mg> 2, K> 4. continue metoprolol 12.5mg BID. (3) Fecal impaction Current Visit: Yes Status: Acute Code(s): K56.41 - FECAL IMPACTION SNOMED Code(s): 58373451 Comment: s/p Disimpaction ordered, continue PEG 17 gm bid. (4) HTN (hypertension) Current Visit: Yes Status: Acute Code(s): I10 - ESSENTIAL (PRIMARY) HYPERTENSION SNOMED Code(s): 41225755 Comment: Continue metoprolol. restart losartan at 50mg daily (half home dose). start torsemide 20mg daily (had been on lasix at home though not always compliant) (5) Hypothyroid Current Visit: Yes Status: Acute Code(s): E03.9 - HYPOTHYROIDISM, UNSPECIFIED SNOMED Code(s): 70872971 Comment: TSH 22 on 08/03/17. Extra levothyroxine 50 mcg 08/03, continue increased dose of 100 mcg. (6) Left hemiparesis Current Visit: Yes Status: Acute Code(s): G81.94 - HEMIPLEGIA, UNSPECIFIED AFFECTING LEFT NONDOMINANT SIDE SNOMED Code(s): 167800273 Comment: Subtle changes per Dr. Goel. No CVA on MRI. b12 wnl , folate wnl. Hold off on EMG or L spine MRI. (7) Edema Current Visit: Yes Status: Acute Code(s): R60.9 - EDEMA, UNSPECIFIED SNOMED Code(s): 715495989 Comment: ECHO February 2016 EF 55-60%, repeat now 50-55% no e.o dystolic dysfunction. BMP 355 torsemide 20mg daily (8) FTT (failure to thrive) in adult Current Visit: Yes Status: Acute Comment: UA with WBC, bacteria but UCx NG. CFTX switched to cefdinir. Improving leukocytosis. Status and Disposition: Discharged to MHU on 08/05 though they did not actually admit. still awaiting admission there. Will continue to follow as medicine consult. Attending: Maykel Wilks
[2017-08-06] MEDS: KCL 10 MEQ/50 ML IVPREMIX* 10 MEQ/50 ML BAG IV SCH ×3 (11:52→15:09)
[2017-08-06 15:09] LABS: EGFR Non-African American 85.5 (>60)
[2017-08-06] MEDS ORDERED: Potassium Chlor TAB* 20 MEQ TAB.ER PO ONE (15:26)
[2017-08-06 15:29] VITALS: BP 138/64
--- NOTE | 2017-08-06 15:36 | RAD ---
INDICATION: Bilateral knee pain COMPARISON: None TECHNIQUE: AP and lateral views of the bilateral knees were obtained. FINDINGS: The visualized bones are well-corticated and properly aligned. Advanced degenerative changes of the bilateral knees include narrowing of the medial lateral compartments with sclerotic change and all 4 compartments. There is exuberant marginal osteophyte formation. At the right knee there is a small degree of medial subluxation of the femoral condyles relative to the tibial plateau. On the lateral view radiograph there is narrowing of the patellofemoral joint with superior pole marginal osteophyte formation of the patellae. There is no radiographic evidence of joint effusion. There is no acute fracture, dislocation or other focal bony abnormality. IMPRESSION: Advanced degenerative changes of the bilateral knees. If the patient's symptoms persist, follow-up imaging is recommended.
[2017-08-06] MEDS: Enoxaparin(*) 40 MG/0.4 ML SYR SUBCUT SCH (17:29)
[2017-08-06] MEDS: PTO:Latanoprost 0.005%* 2.5 ml BTL BOTH EYES SCH ×2 (20:09→20:13)
[2017-08-07] MEDS ORDERED: Torsemide TAB* 20 MG PO SCH (09:00)
[2017-08-07] MEDS ORDERED: Losartan TAB* 25 MG PO SCH (09:00)
--- NOTE | 2017-08-09 03:53 | DS ---
DISCHARGE SUMMARY: DATE ADMISSION: 08/03/17 DATE OF DISCHARGE: 08/06/17 ADMITTING PHYSICIAN: Erick Etienne MD ATTENDING PHYSICIAN: Maykel Wilks MD CHIEF COMPLAINT: Brought in by medical proxy after discovery of intentional overdose of Wellbutrin; generalized weakness; hypothyroidism; AFib. HISTORY OF PRESENT ILLNESS AND HOSPITAL COURSE: Francine Vargas is an 82-year- old female with past medical history of paroxysmal atrial fibrillation; glaucoma ; macular degeneration; hypothyroidism secondary to Graves' disease and thyroid cancer, status post thyroid surgery. Please see admission note of 08/03/[address] Erick Etienne for full details. Additional history was provided by medical proxy and friend Minda Salinas attested that. Patient 2 days prior to admission on the night of 08/01/17 or the morning of 08/02/17, patient attempting to overdose on Wellbutrin. She fully was able to ingest 6 to 7 tablets per psychiatric evaluation before her roommate of the [facility] discovered her and confiscated the rest of her Wellbutrin. She attested that she had been feeling like she was trapped given her lack of mobility and frustrations. Minda Salinas attested that in early June she had also stopped drinking, eating or taking her medications. She was restarted on Wellbutrin at that time, which she had been off for indeterminant amount of time. Patient was admitted for observation status given the ingestion and monitored on telemetry. Patient was also of some concern for some increasing weakness of the left arm and leg. She received an MRI brain without contrast on 08/03/17, which showed no evidence of acute intracranial abnormality, some effusions were seen within the mastoid air cells. 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 B12 and folates were ordered, are still pending. Appreciate Dr. Goel's, Neurology recommendations. Dr. Nguyễn of Psychiatry evaluated the patient and recommended stopping the Wellbutrin and transitioning to mirtazapine in order to also help her sleep and appetite. She initially denied wanting voluntary admission to the mental health unit, but that was encouraged by thought of getting more assistance in the detention facility for rehab or retirement for a longer term living arrangement. She is being admitted on 9.39 status to the mental health unit for further titration of psychiatric medications. Patient's course was complicated by episode of atrial fibrillation with RVR on morning of discharge, 08/05/17. Patient brought back to normal sinus rhythm after 10 mg of diltiazem and additional approximately 1.5 mg of a second planned bolus. Patient was found to have hypomagnesemia 1.6 and was repleted prior to transfer. Patient had additional leukocytosis of 20 and urinalysis with elevated white count 2+, was started on ceftriaxone for possible urinary tract infection, although urine culture eventually did not grow any significant organisms. White count did improve though to 16.7 from 21.5. Patient will be continued on a short course of Cefdinir. Patient also had lower extremity edema, which may be complicating her mobility issues. Her last echocardiogram was from February 2016 with an EF of 55% to 60%. This has been reordered and possibly done as an outpatient if not able to done on the psychiatric unit. Her BNP was mildly elevated at 355, first documentation in our system. Patient is chronically on Lasix 20 mg p.o. daily, though does not like the way, what she thinks, it makes her have frequent urinations overnight though not in the day and keeps up at night and it is unclear if she is completely compliant with this medication. She is on room air with no tachypnea and chest x-ray did not demonstrate notable pulmonary edema, though did have some patchy interstitial markings in the mid to upper lung zones. Consideration for trial of different diuretic as an outpatient. The patient was noted to have an elevated TSH of 22 and her levothyroxine was increased from 50 micrograms to 100 micrograms daily and will need repeat testing in approximately 4 weeks. Free T4 and a total T3 will be drawn tomorrow. The patient was complaining of constipation, received manual disimpaction along with polyethylene glycol. The patient did get sodium phosphate fleet enema. DISCHARGE MEDICATIONS: Include, 1. Levothyroxine 100 micrograms p.o. daily. 2. Metoprolol succinate XL 12.5 mg b.i.d. 3. MiraLAX 17 g daily. 4. Xalatan 0.005% both eyes at bedtime. 5. Lasix 20 mg p.o. daily. 6. Losartan 100 mg p.o. daily. DISCHARGE DIET: Heart healthy. ACTIVITY LEVEL: No restrictions. Continue to work with physical therapy. FOLLOWUP: Please follow up with Dr. Puente after discharge from mental health unit, likely needs a detention facility placement or shelter retirement may be in the patient's best interest. Patient needs to follow up thyroid studies in 4 to 6 weeks. TIME SPENT: Time spent on discharge 35 minutes. [id number]/CPS #: [id number]
== END 2017-08-06 21:15 | DRG 57 ==
LOC: ED 13:28 → MEDTELE 15:44 → MED 18:01 → OBSVTOIN 08-04 13:08
PROVIDERS: ADMIT Internal Medicine; ATTEND Internal Medicine
DX: G81.94 Hemiplegia, unspecified affecting left nondominant side (principal); I48.0 Paroxysmal atrial fibrillation; F33.2 Major depressive disorder, recurrent severe without psychotic features; M41.9 Scoliosis, unspecified; E83.42 Hypomagnesemia; N39.0 Urinary tract infection, site not specified; T43.292A Poisoning by other antidepressants, intentional self-harm, initial encounter; I10 Essential (primary) hypertension; J30.2 Other seasonal allergic rhinitis; M81.0 Age-related osteoporosis without current pathological fracture; H91.90 Unspecified hearing loss, unspecified ear; E89.0 Postprocedural hypothyroidism; F41.9 Anxiety disorder, unspecified; H26.9 Unspecified cataract; R40.2362 Coma scale, best motor response, obeys commands, at arrival to emergency department; R40.2142 Coma scale, eyes open, spontaneous, at arrival to emergency department; R40.2252 Coma scale, best verbal response, oriented, at arrival to emergency department; R29.701 NIHSS score 1; H40.9 Unspecified glaucoma; H35.30 Unspecified macular degeneration; M48.061 Spinal stenosis, lumbar region without neurogenic claudication; R45.84 Anhedonia; R62.7 Adult failure to thrive; M17.0 Bilateral primary osteoarthritis of knee; M43.02 Spondylolysis, cervical region; R60.0 Localized edema; K59.00 Constipation, unspecified; Z88.5 Allergy status to narcotic agent; Z88.8 Allergy status to other drugs, medicaments and biological substances; Z85.850 Personal history of malignant neoplasm of thyroid; Z82.49 Family history of ischemic heart disease and other diseases of the circulatory system; Z82.3 Family history of stroke; Z72.89 Other problems related to lifestyle; Z81.1 Family history of alcohol abuse and dependence; Z81.8 Family history of other mental and behavioral disorders; Y92.009 Unspecified place in unspecified non-institutional (private) residence as the place of occurrence of the external cause
CPT/HCPCS: 36415; 70450; 70551; 71010; 72141; 80048; 80053; 80307; 80320; 80329; 81003; 81015; 82550; 82607; 82746; 83605; 83735; 83880; 84439; 84443; 84479; 84484; 84550; 85025; 85060; 85610; 85730; 87086; 93005; 93306; A9270-GY; C8929; G0378; G0480; G8978-GP-CM; G8979-GP-CI; G8980-GP-CM; J0696; J1650; J3475; J3480

== ENCOUNTER 2017-08-05 13:54 | Inpatient (IN) | payer MEDICARE, BC ==
[2017-08-05] MEDS ORDERED: Al Hydrox/Mg Hydrox/Simet LIQ* 30 ML UDC PO PRN (14:16)
[2017-08-05] MEDS ORDERED: Acetaminophen TAB* 325 MG PO PRN (14:16)
[2017-08-05] MEDS ORDERED: Magnesium CITRATE* 300 ML BTL PO PRN (14:28)
--- NOTE | 2017-08-05 20:33 | HP ---
PSYCHIATRIC HISTORY AND PHYSICAL: DATE OF ADMISSION: 08/05/17 JUSTIFICATION FOR ADMISSION: The patient is in need of 24-hour supervision and care secondary to a r ecent suicide attempt. CHIEF COMPLAINT: "I just did not have any hope at the time." HISTORY OF PRESENT ILLNESS: The patient is an 82-year-old white female with a history of re current major depression, who is transferred from the medical service following stabilization of atri al fibrillation and UTI, who was consulted on due to depressed mood associated with decreased indepen dent functioning and a suicide attempt via intentional overdose on bupropion. The patient initially arrived at our hospital accompanied by a friend secondary to left-sided weakness and difficulty atten ding to her activities of daily living. She is apparently a resident of the senior unassisted living facility at the [facility] in [facility]. While she was in the emergency room, she admitted to taking several extra bupropion pills while alone in her apartment in what was a form of suicide at tempt. Initially, when I met with her for consultation, she was calm, cooperative, and greeted me sta ting "a lot of this is due to depression." She indicated that she had several stressors recently suc h as limited social support in the area with very few family and many recently friends and s he is having increased trouble ambulating around her small apartment. "It is just awful, all I do is watch TV in my bedroom." She admitted to taking somewhere between 6 and 7 extra tablets of 100 mg i mmediate release bupropion on the day prior to presentation, although her friends told the medical se rvice that she actually took more of these and had to be talked out of further overdose by a neighbor of hers in her apartment building. Although, the attempt seems to have had low lethality, it was hig h in terms of intentionality from the standpoint that the patient really did feel that this would kil l her. Symptomatically, she denied sleep disturbance or guilt, but she did endorse anhedonia, poor e nergy, difficulty concentrating, loss of appetite, psychomotor retardation and recent thoughts that er life would be better if it was over. She did deny any history of brianna in the past or psychotic i llness. PSYCHIATRIC HISTORY: The patient is a limited historian, but I do gather after a conversation with er outpatient primary care provider, Dr. Enriqueta Puente that the patient did well for years on bupropion until stopping this some time in the late summer of 2016. Prior to being on bupropion, she had been on several trials with various SSRIs, but often complained of side effects from these. Further tria ls of mirtazapine and trazodone were intolerable to her. Progressively, Dr. Puente became more goyo rned because the patient would often attribute her paroxysmal atrial fibrillation to antidepressants and she almost became obsessive about this, frequently navigating internet web sites devoted to these medications and their side effects. It does not appear that the patient has ever been psychiatrical ly admitted nor seen any community psychiatrist. She does admit to me that within the last 2 years, she has had approximately three suicide attempts via overdose. SUBSTANCE ABUSE HISTORY: She endorses social alcohol consumption, but not in the last several years. She was never a smoker and never did illicit drugs. PAST MEDICAL HISTORY: She was just treated on the medical unit for hypomagnesemia, constipation, and paroxysmal atrial fibrillation. She also reports a history of scoliosis, degenerative disk disease, glaucoma, macular degeneration, Graves' disease followed by thyroid cancer and status post thyroidec emmanuel, and hypertension. ALLERGIES: She is allergic to FLUOXETINE, MORPHINE, and PROPRANOLOL. FAMILY HISTORY: The patient's mother had depression and her sister had alcoholism. SOCIAL HISTORY: The patient was born and raised in [place]. She does have an older sister who is now . 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 Thereafter, she got , but later in her mid 50s. She has no children, although she did lose 2 pregnancies to spontaneous . 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 She was raised zoroastrian, but does not currently practice any zoroastrianism. She self-identifi es as single, heterosexual and not currently sexually active. She has no significant history of lega l problems. Her healthcare proxy is a woman, named Minda Salinas, from whom we have relied on some of this history. Apparently, the two of them used to be in a [employer] organization. REVIEW OF SYSTEMS: The patient continues to complain of constipation. She also complains of diffuse left-sided weakness and some tingling in her fingers of her left hand. She is unable to ambulate an d has much difficulty using the commode. PHYSICAL EXAMINATION VITAL SIGNS: Blood pressure 148/59, heart rate 88, respiratory rate 20, temperature 97.6 degrees Fah renheit, oxygen saturations are 97% on room air. HEENT: Head is normocephalic, atraumatic. NECK: Supple. CHEST: Clear to auscultation bilaterally. ABDOMEN: Soft and nontender. MUSCULOSKELETAL: Exam reveals a full range of motion with no evidence of edema. NEUROLOGIC: She seems to be focally weak in her left upper and lower extremity. SKIN: Warm, dry and intact. DIAGNOSTIC STUDIES/LAB DATA: Her CBC shows mild leukocytosis with white blood cells of 16.7. She i s slightly anemic with hemoglobin of 10.1, hematocrit of 31. Complete metabolic panel shows sodium th at is low at 130, chloride is low at 96, magnesium is low at 1.6, alk phos slightly elevated at 198. Urinalysis has 2+ white blood cells and 1+ bacteria. Urine drug screen is positive for amphetamines . MENTAL STATUS EXAMINATION: The patient is a tall, aging, white haired white female who is wearing ey eglasses. She is quite hard of hearing and also squints at times during our conversation. She is ca lm, cooperative, easy to establish a rapport with. Speech has normal rate, tone, and volume. She do es display some evidence of hypokinesis particularly towards the beginning of our encounter. Her moo d is depressed with a constricted affect. She currently denies suicidal ideations and denies homicid ality. She denies auditory or visual hallucinations. Insight and judgement are somewhat limited giv en her choice of overdosing on medications prior to this admission. Cognitively, she is awake, alert , oriented x4 and seems to have an average intellect by virtue of vocabulary and educational backgrou nd. DIAGNOSES: As follows: Jay Em I: Major depressive disorder, recurrent, severe without psychotic features. Jay Em II: Questiona ble cluster B personality traits. Jay Em III: Paroxysmal atrial fibrillation, anemia, hypomagnesemia, constipation, acute urinary tract infection, scoliosis, degenerative disk disease, glaucoma, macular degeneration, history of Graves' disease followed by thyroid cancer and status post thyroidectomy, hy pertension. Jay Em IV: Severe primary support and housing stressors. Jay Em V: 35. ASSESSMENT: The patient is an 82-year-old white female with a history of recurrent major de pression, transferred from medicine after stabilization of atrial fibrillation and urinary tract infe ction, who was consulted on due to depressed mood associated with decreased independent functioning a nd a suicide attempt via intentional overdose on bupropion. Currently, she is continuing to be weak and frail particularly on the left side and pending PT and OT services and will likely need subacute rehab. The hospitalist service is continuing to follow, although Neurology has already signed off. PLAN: The patient will be transferred from the medical to the behavioral science unit and placed on q.15 minute checks for her own safety. We will resume bupropion SR 200 mg p.o. q.a.m. as I understan d that this is the medicine that she has done the best on and that she tolerates the best. We can ce rtainly consider further antidepressant augmentation if necessary. Mostly, I would like to see her o n the unit participating in milieu activities and taking advantage of individual and group psychother apies. We will consult PT and OT for further services and will likely consider transfer to a subacut e rehab. Thereafter, it is uncertain what level of housing services she will need in the community. I have already spoken with her primary care provider, Dr. Enriqueta Puente, who is in agreement with the psychiatric hospitalization. Dr. Puente will likely continue to provide follow on services in the co mmunity after discharge. [id number]/[facility] #: [id number]
[2017-08-06] MEDS ORDERED: Losartan TAB* 25 MG PO SCH (09:00)
[2017-08-06] MEDS: Polyethylene Glycol 3350* 17 GM PACKET PO SCH ×2 (21:36→21:37)
[2017-08-06] MEDS: Dorzolamide 2% OPTH (NF) 10 ML BTL RIGHT EYE SCH ×2 (21:36→21:39)
[2017-08-06] MEDS: Enoxaparin(*) 40 MG/0.4 ML SYR SUBCUT SCH (21:36)
[2017-08-06] MEDS: Metoprolol Succinate XL TAB* 25 MG PO SCH ×2 (21:37→21:39)
[2017-08-06] MEDS: Travoprost Z 0.004% OPHTH (NF) 2.5 ML BTL BOTH EYES SCH (21:37)
[2017-08-06] MEDS: buPROPion SR TAB.SR* 100 MG PO SCH (21:38)
[2017-08-06] MEDS: Furosemide TAB* 20 MG PO SCH (21:39)
[2017-08-06] MEDS: Acetaminophen ADULT LIQ* 650 MG/20.3 ML UDC PO PRN (23:53)
[2017-08-07] MEDS: Levothyroxine TAB* 100 MCG TAB PO SCH (05:20)
[2017-08-07] MEDS: Acetaminophen ADULT LIQ* 650 MG/20.3 ML UDC PO PRN (09:45)
[2017-08-07] MEDS: Polyethylene Glycol 3350* 17 GM PACKET PO SCH ×2 (09:45→21:13)
[2017-08-07] MEDS: Losartan TAB* 25 MG PO SCH (09:50)
[2017-08-07] MEDS: Furosemide TAB* 20 MG PO SCH (09:51)
[2017-08-07] MEDS: CMCS:Cefdinir cap (NF) 300 MG CAP PO SCH ×2 (09:51→21:23)
[2017-08-07] MEDS: Dorzolamide 2% OPTH (NF) 10 ML BTL RIGHT EYE SCH ×2 (09:51→21:23)
[2017-08-07] MEDS: buPROPion SR TAB.SR* 100 MG PO SCH (09:51)
[2017-08-07] MEDS: Metoprolol Succinate XL TAB* 25 MG PO SCH (09:52)
[2017-08-07] MEDS: Vitamin THERAPEUTIC TAB PO SCH (10:03)
[2017-08-07 11:56] LABS: ABS Basophils 0.1 10^3/ul (0-0.2); ABS Eosinophils 0.1 10^3/ul (0-0.6); ABS Monocytes 0.8 10^3/ul (0-0.8); ABS Neutrophils 12.5 10^3/ul (1.5-7.7); ABS Nucleated RBC 0 10^3/ul; Eosinophil % 0.5 % (0-6); Hematocrit 32 % (35-47); Hemoglobin 10.1 g/dl (12.0-16.0); Lymphocyte % 7.1 % (25-47); Mean Corpuscular HGB Conc 32 g/dl (31-36); Mean Corpuscular Hemoglobin 27 pg (27-31); Mean Corpuscular Volume 85 fL (80-97); Mean Platelet Volume 7 um3 (7.4-10.4); Nucleated Red Blood Cells % 0; Platelet Count 451 10^3/ul (150-450); Red Blood Count 3.69 10^6/ul (4.0-5.4); Red Cell Distribution Width 15 % (10.5-15); White Blood Count 14.4 10^3/ul (3.5-10.8)
[2017-08-07 12:22] LABS: EGFR Non-African American 93.7 (>60)
--- NOTE | 2017-08-07 15:37 | PN ---
Progress Note - Progress Note Date of Service: 08/07/17 Note: Transferred to [facility] as planned last night and being managed by Dr. Wilks medically due to multiple disabling medical conditions. Dr. Wilks was on the unit to see her this afternoon and we had a very meaningful discussion about her care on [facility]. Francine is very unhappy for being transferred to this unit against her will as she thinks her needs are more medical in nature. Although she realizes OD on her psychotropic meds triggered this transfer she is having difficulty accepting to be on a psych. floor. Reports of feeling depressed and would like to be on an anti dipressent other than Wellbutrin. We will discuss her choice of meds tomorrow as she is having difficulty deciding in a stressful envioronment for her. She is alert and oriented to time place and person. Depressed mood with dysphoric affect. No evidence of thoughts or perceptual disturbances. Cognitively intact. Memory functions are intact. Denies current SI/HI. Insight and Judgment Poor. A/P : I concur with Dr. Nguyễn's treatment plan and follow all of his recommendations for now.
[2017-08-07] MEDS: Enoxaparin(*) 40 MG/0.4 ML SYR SUBCUT SCH (15:50)
--- NOTE | 2017-08-07 19:49 | PN ---
Subjective Date of Service: 08/07/17 Interval History: Pt upset about being on psych unit. fixated on lighting in room, not bothering the RNs to help clean her, being older than everyone else. Knee pains continue. Feels too weak to walk/get out of bed. Duplex pending Objective Active Medications: Acetaminophen (Tylenol Adult Liq*) 650 mg PO Q4H PRN PRN Reason: for pain; or Temp >101 F Last Admin: 08/07/17 09:45 Dose: 650 mg Al Hydrox/Mg Hydrox/Simethicone (Maalox Plus*) 30 ml PO Q4H PRN PRN Reason: INDIGESTION Bupropion HCl (Wellbutrin Sr Tab*) 200 mg PO QAM [facility] Last Admin: 08/07/17 09:51 Dose: 100 mg Cefdinir (Cefdinir Cap (Nf)) 300 mg PO BID [facility] Last Admin: 08/07/17 09:51 Dose: 300 mg Dorzolamide HCl (Trusopt 2% Opth (Nf)) 1 drop RIGHT EYE BID [facility] PRN Reason: Protocol Last Admin: 08/07/17 09:51 Dose: 1 drop Enoxaparin Sodium (Lovenox(*)) 40 mg SUBCUT Q24H [facility] Last Admin: 08/07/17 15:50 Dose: 40 mg Furosemide (Lasix Tab*) 20 mg PO DAILY [facility] Last Admin: 08/07/17 09:51 Dose: 20 mg Latanoprost (Xalatan 0.005%*) 1 drop BOTH EYES BEDTIME [facility] PRN Reason: Protocol Levothyroxine Sodium (Synthroid Tab*) 100 mcg PO QAM@0600 [facility] Last Admin: 08/07/17 05:20 Dose: 100 mcg Losartan Potassium (Cozaar Tab*) 50 mg PO DAILY [facility] Last Admin: 08/07/17 09:50 Dose: 50 mg Magnesium Citrate (Citrate Of Magnesia*) 300 ml PO DAILY PRN PRN Reason: CONSTIPATION Metoprolol Succinate (Toprol Xl Tab*) 12.5 mg PO QAM [facility] Last Admin: 08/07/17 09:52 Dose: 25 mg Multivitamins (Theragran Tab*) 1 tab PO DAILY [facility] Last Admin: 08/07/17 10:03 Dose: Not Given Polyethylene Glycol/Electrolytes (Miralax*) 17 gm PO 0800,2100 [facility] Last Admin: 08/07/17 09:45 Dose: 17 gm Vital Signs - 8 hr 08/07/17 13:01 Respiratory 16 Rate Oxygen Devices in Use Now: None Appearance: NAD but upset Eyes: No Scleral Icterus, PERRLA Ears/Nose/Mouth/Throat: NL Teeth, Lips, Gums Neck: NL Appearance and Movements; NL JVP Respiratory: Symmetrical Chest Expansion and Respiratory Effort, Clear to Auscultation Cardiovascular: NL Sounds; No Murmurs; No JVD Abdominal: NL Sounds; No Tenderness; No Distention, No Hepatosplenomegaly Extremities: - - 1+ b/l edema; knee pain b/l Skin: No Rash or Ulcers Neurological: Alert and Oriented x 3 Result Diagrams: 08/07/17 11:48 08/07/17 11:48 Additional Lab and Data: Laboratory Results - last 24 hr 08/07/17 08/07/17 11:48 11:48 WBC 14.4 H RBC 3.69 L Hgb 10.1 L Hct 32 L MCV 85 MCH 27 MCHC 32 RDW 15 Plt Count 451 H MPV 7 L Neut % (Auto) 86.6 H Lymph % (Auto) 7.1 L [place] % (Auto) 5.4 Eos % (Auto) 0.5 Baso % (Auto) 0.4 Absolute Neuts (auto) 12.5 H Absolute Lymphs (auto) 1.0 Absolute Monos (auto) 0.8 Absolute Eos (auto) 0.1 Absolute Basos (auto) 0.1 Absolute Nucleated RBC 0 Nucleated RBC % 0 Sodium 137 Potassium 4.5 Chloride 104 Carbon Dioxide 29 Anion Gap 4 BUN 23 Creatinine 0.61 Est GFR ( Amer) 120.5 Est GFR (Non-Af Amer) 93.7 BUN/Creatinine Ratio 37.7 H Glucose 99 Calcium 9.1 Magnesium 1.9 Assess/Plan/Problems-Billing Assessment: 82 yo female PMH anxiety/depression, b/l knee OA, pAFib, recent FTT and wellbutrin intentional overdose now on psychiatric floor (939 involuntary admission). Will need Acute Rehab/SNF as came from senior housing. - Patient Problems (1) Suicidal behavior Current Visit: No Status: Acute Code(s): R46.89 - OTHER SYMPTOMS AND SIGNS INVOLVING APPEARANCE AND BEHAVIOR SNOMED Code(s): 695066492 Comment: Wellbutrin overdose. Appreciate Psychiatry recs - Dr. Nguyễn recommended 939 involuntary admission to MHU but patient not happy. remeron likely. (2) Atrial fibrillation Current Visit: No Status: Acute Code(s): I48.91 - UNSPECIFIED ATRIAL FIBRILLATION SNOMED Code(s): 94633991 Comment: paroxysmal. Complicated by Afib with RVR on 08/05 broke with dilt IV ~12mg. Has never been on a/c. f/u with Dr. Caldwell as outpatient. Mg> 2, K> 4. continue metoprolol 12.5mg BID. (3) Edema Current Visit: No Status: Acute Code(s): R60.9 - EDEMA, UNSPECIFIED SNOMED Code(s): 012302062 Comment: ECHO February 2016 EF 55-60%, repeat now 50-55% no e.o dystolic dysfunction. BMP 355 lasix 20mg daily duplex dopplers pending. (4) FTT (failure to thrive) in adult Current Visit: No Status: Acute Comment: Continue PT(refused initially) and will need skilled rehab. UA with WBC, bacteria but UCx NG. CFTX switched to cefdinir. Improving leukocytosis. (5) HTN (hypertension) Current Visit: No Status: Acute Code(s): I10 - ESSENTIAL (PRIMARY) HYPERTENSION SNOMED Code(s): 97494396 Comment: Continue metoprolol. continue losartan at 50mg daily (half home dose). continue lasix 20mg daily (6) Hypothyroid Current Visit: No Status: Acute Code(s): E03.9 - HYPOTHYROIDISM, UNSPECIFIED SNOMED Code(s): 45703687 Comment: TSH 22 on 08/03/17. continue increased dose of 100 mcg. Recheck in 4-6 weeks. Status and Disposition: psych pt, medicine consulting. Will need SNF/acute rehab. Attending: Maykel Wilks
--- NOTE | 2017-08-07 20:24 | RAD ---
HISTORY: Bilateral lower extremity edema and a patient with reported "immobility" TECHNIQUE: Multiple transverse and longitudinal ultrasound images were obtained of the veins of the bilateral lower extremities using grayscale, color Doppler, and spectral Doppler imaging with and without compression and with augmentation. FINDINGS: VEINS: The common femoral vein, deep femoral vein, femoral vein and popliteal vein are compressible throughout their course, with normal flow on color Doppler imaging and normal response to augmentation on spectral Doppler imaging. SOFT TISSUES: Grossly normal. No large popliteal fossa cyst was identified. IMPRESSION: No sonographic evidence of deep femoral-popliteal vein thrombosis.
[2017-08-07] MEDS: Latanoprost 0.005%* 2.5 ml BTL BOTH EYES SCH (21:24)
[2017-08-08] MEDS: Acetaminophen ADULT LIQ* 650 MG/20.3 ML UDC PO PRN (00:45)
[2017-08-08] MEDS: Levothyroxine TAB* 100 MCG TAB PO SCH (07:49)
[2017-08-08 08:32] LABS: ABS Basophils 0.1 10^3/ul (0-0.2); ABS Eosinophils 0.1 10^3/ul (0-0.6); ABS Lymphocytes 1.1 10^3/ul (1.0-4.8); ABS Monocytes 0.8 10^3/ul (0-0.8); ABS Neutrophils 11.7 10^3/ul (1.5-7.7); ABS Nucleated RBC 0.01 10^3/ul; Eosinophil % 0.7 % (0-6); Hematocrit 34 % (35-47); Lymphocyte % 7.8 % (25-47); Mean Corpuscular HGB Conc 33 g/dl (31-36); Mean Corpuscular Hemoglobin 28 pg (27-31); Mean Corpuscular Volume 86 fL (80-97); Mean Platelet Volume 7 um3 (7.4-10.4); Nucleated Red Blood Cells % 0; Platelet Count 485 10^3/ul (150-450); Red Blood Count 3.93 10^6/ul (4.0-5.4); Red Cell Distribution Width 16 % (10.5-15); White Blood Count 13.7 10^3/ul (3.5-10.8)
[2017-08-08 08:45] LABS: EGFR Non-African American 88.6 (>60)
[2017-08-08] MEDS: Polyethylene Glycol 3350* 17 GM PACKET PO SCH ×2 (09:39→19:55)
[2017-08-08] MEDS: CMCS:Cefdinir cap (NF) 300 MG CAP PO SCH ×2 (09:40→19:55)
[2017-08-08] MEDS: Losartan TAB* 25 MG PO SCH (09:41)
[2017-08-08] MEDS: Metoprolol Succinate XL TAB* 25 MG PO SCH ×2 (09:41→18:42)
[2017-08-08] MEDS: CMC:Dorzolamide 2% OPTH (NF) 10 ML BTL RIGHT EYE SCH ×2 (09:45→19:56)
[2017-08-08] MEDS: buPROPion SR TAB.SR* 100 MG PO SCH (09:52)
[2017-08-08] MEDS: Furosemide TAB* 20 MG PO SCH (09:53)
[2017-08-08] MEDS: Vitamin THERAPEUTIC TAB PO SCH (09:55)
--- NOTE | 2017-08-08 13:51 | PN ---
Subjective - Subjective Date of Service: 08/08/17 Service Type: 43322 Hosp care 15 min low complexity Subjective: Fracnine has been minimally cooperative over the weekend. Not getting out of bed and refusing bupropion therapy. She seems somewhat confused about her treatment circumstances, as she repeatedly insists that there is a "[place] doctor who's director of marketing and promotions and trying to give me a bunch of stuff I don't want to take." She is corrected that no such clinician has attended to her that we are aware of. I did discuss the nature of Ms. Mathews's admission and reminded her of her clinical depressive symptoms and suicidal thinking and attempt leading up to hospitalization and transfer to the [facility]. She continues to endorse depressive symptoms but is reluctant to try antidepressant medications for fear of side effects or making her paroxysmal afib worse. Dr. Wilks of the Hospitalist service continues to round on her for medical comorbidities. Francine denies SI. She knows that she cannot return to the [facility] but is uncertain where she could live instead, having a distaste for nursing homes and unable to afford senior assisted living. She is cooperative, yet slightly passive aggressive on presentation. Objective - Appearance Appearance: Well Developed/Nourished Dysmorphic Features: No Hygiene: Normal Grooming: Fairly Well Kept - Behavior Psychomotor Activities: Abnormal-Decreased Exhibits Abnormal Movement: No - Attitude and Relatedness Attitude and Relatedness: Superficially Cooperative Eye Contact: Fair - Speech Quality: Unpressured Latencies: Normal Quantity: Appropriate - Mood Patient's Decription of Mood: "Sad" - Affect Observed Affect: Constricted Affect Consistent with: Dysphoria - Thought Process Patient's Thought Process: Coherent Thought Content: Yes Paranoid Ideation, No Passive Wish, No Suicidal Planning, No Homicidal Ideation - Sensorium Experiencing Hallucinations: No, Sensorium is Clear Type of Hallucinations: Visual: No, Auditory: No, Command: No - Level of Consciousness Level of Consciousness: Lethargic Orientation: Yes Intact, Yes Orientated to Time, Yes Orientated to Place, Yes Orientated to Person - Impulse Control Impulse Control: Poor - Insight and Judgement Insight and Judgement: Impaired - Group Participation Particating in Group Activities: No - Medication Management Medication Management Adherence: Partial Assessment - Assessment Merits Inpatient Hospitalization: For Immediate Safety, For Stabilization Inpatient DSM-IV Dx: MDD, recurrent, severe with psychotic features Clinical Impression: 82 y.o. , white female with a history of recurrent major depression transferred from medicine after stabilization of atrial fibrillation and UTI who was consulted on due to depressed mood associated with decreased independent functioning and a suicide attempt via intentional OD on bupropion. Plan - Plan Treatment Plan: Name: FRANCINE MATHEWS Birthdate: 1935 [id number] We will discontinue bupropion at her request as she is convinced it is worsening her atrial fibrillation. I am trying to persuade her to accept a trial of nightly mirtazapine, but she won't consent to this yet. We will work on the therapeutic alliance and see if she changes her mind. We await PT/OT input regarding ADLs and level of care. Disposition is between SNF and subacute rehab. Continue to treat on inpatient basis under 9.39 involuntary statute. Hospitalist involvement appreciated. Continued Medication Management: Start Medication Medications: Current Medications Acetaminophen (Tylenol Adult Liq*) 650 mg PO Q4H PRN PRN Reason: for pain; or Temp >101 F Last Admin: 08/08/17 00:45 Dose: 650 mg Al Hydrox/Mg Hydrox/Simethicone (Maalox Plus*) 30 ml PO Q4H PRN PRN Reason: INDIGESTION Cefdinir (Cefdinir Cap (Nf)) 300 mg PO BID [facility] Last Admin: 08/08/17 09:40 Dose: 300 mg Dorzolamide HCl (Trusopt 2% Opth (Nf)) 1 drop RIGHT EYE BID [facility] PRN Reason: Protocol Last Admin: 08/08/17 09:45 Dose: 1 drop Enoxaparin Sodium (Lovenox(*)) 40 mg SUBCUT Q24H [facility] Last Admin: 08/07/17 15:50 Dose: 40 mg Furosemide (Lasix Tab*) 20 mg PO DAILY [facility] Last Admin: 08/08/17 09:53 Dose: Not Given Latanoprost (Xalatan 0.005%*) 1 drop BOTH EYES BEDTIME [facility] PRN Reason: Protocol Last Admin: 08/07/17 21:24 Dose: 1 drop Levothyroxine Sodium (Synthroid Tab*) 100 mcg PO QAM@0600 [facility] Last Admin: 08/08/17 07:49 Dose: 100 mcg Losartan Potassium (Cozaar Tab*) 50 mg PO DAILY [facility] Last Admin: 08/08/17 09:41 Dose: 50 mg Magnesium Citrate (Citrate Of Magnesia*) 300 ml PO DAILY PRN PRN Reason: CONSTIPATION Magnesium Oxide (Magox 400 Tab*) 800 mg PO DAILY [facility] Metoprolol Succinate (Toprol Xl Tab*) 12.5 mg PO QAM [facility] Last Admin: 08/08/17 09:41 Dose: 12.5 mg Multivitamins (Theragran Tab*) 1 tab PO DAILY [facility] Last Admin: 08/08/17 09:55 Dose: Not Given Polyethylene Glycol/Electrolytes (Miralax*) 17 gm PO 0800,2100 [facility] Last Admin: 08/08/17 09:39 Dose: 17 gm - Discharge Plan Discharge Plan: Inpatient Hospitalization
[2017-08-08] MEDS: Magnesium Oxide TAB* 400 MG PO SCH (14:07)
[2017-08-08] MEDS: Enoxaparin(*) 40 MG/0.4 ML SYR SUBCUT SCH (15:39)
--- NOTE | 2017-08-08 20:19 | PN ---
Subjective Date of Service: 08/08/17 Interval History: pt in better mood(relatively) today, less combative with this provider. declining some meds including lasix and wellbutrin. has not consented to remeron yet. not out of bed. duplex doppler negative for DVT. Eating little but more than before seemingly. Denies SOB or palpitations. Worried about medication side effects and her "sensitive" physiology to most meds. Objective Active Medications: Acetaminophen (Tylenol Adult Liq*) 650 mg PO Q4H PRN PRN Reason: for pain; or Temp >101 F Last Admin: 08/08/17 00:45 Dose: 650 mg Al Hydrox/Mg Hydrox/Simethicone (Maalox Plus*) 30 ml PO Q4H PRN PRN Reason: INDIGESTION Cefdinir (Cefdinir Cap (Nf)) 300 mg PO BID [facility] Last Admin: 08/08/17 19:55 Dose: 300 mg Dorzolamide HCl (Trusopt 2% Opth (Nf)) 1 drop RIGHT EYE BID [facility] PRN Reason: Protocol Last Admin: 08/08/17 19:56 Dose: 1 drop Enoxaparin Sodium (Lovenox(*)) 40 mg SUBCUT Q24H [facility] Last Admin: 08/08/17 15:39 Dose: 40 mg Furosemide (Lasix Tab*) 20 mg PO DAILY [facility] Last Admin: 08/08/17 09:53 Dose: Not Given Latanoprost (Xalatan 0.005%*) 1 drop BOTH EYES BEDTIME [facility] PRN Reason: Protocol Last Admin: 08/07/17 21:24 Dose: 1 drop Levothyroxine Sodium (Synthroid Tab*) 100 mcg PO QAM@0600 [facility] Last Admin: 08/08/17 07:49 Dose: 100 mcg Losartan Potassium (Cozaar Tab*) 100 mg PO DAILY [facility] Magnesium Citrate (Citrate Of Magnesia*) 300 ml PO DAILY PRN PRN Reason: CONSTIPATION Magnesium Oxide (Magox 400 Tab*) 800 mg PO DAILY [facility] Last Admin: 08/08/17 14:07 Dose: 800 mg Metoprolol Succinate (Toprol Xl Tab*) 12.5 mg PO QAM [facility] Last Admin: 08/08/17 09:41 Dose: 12.5 mg Metoprolol Succinate (Toprol Xl Tab*) 12.5 mg PO QPM [facility] Last Admin: 08/08/17 18:42 Dose: 12.5 mg Multivitamins (Theragran Tab*) 1 tab PO DAILY [facility] Last Admin: 08/08/17 09:55 Dose: Not Given Polyethylene Glycol/Electrolytes (Miralax*) 17 gm PO 0800,2100 [facility] Last Admin: 08/08/17 19:55 Dose: Not Given Vital Signs - 8 hr 08/08/17 08/08/17 18:49 19:36 Pulse Rate 90 86 Blood Pressure 149/73 (mmHg) O2 Sat by Pulse 99 Oximetry Oxygen Devices in Use Now: None Appearance: NAD Eyes: No Scleral Icterus, PERRLA Respiratory: Symmetrical Chest Expansion and Respiratory Effort, Clear to Auscultation Cardiovascular: NL Sounds; No Murmurs; No JVD, RRR Abdominal: NL Sounds; No Tenderness; No Distention, No Hepatosplenomegaly Extremities: - - 1+ b/l edema Skin: No Rash or Ulcers, No Nodules or Sclerosis Neurological: Alert and Oriented x 3 Result Diagrams: 08/08/17 08:15 08/08/17 08:15 Additional Lab and Data: Laboratory Results - last 24 hr 08/08/17 08/08/17 08:15 08:15 WBC 13.7 H RBC 3.93 L Hgb 11.0 L Hct 34 L MCV 86 MCH 28 MCHC 33 RDW 16 H Plt Count 485 H MPV 7 L Neut % (Auto) 85.3 H Lymph % (Auto) 7.8 L [place] % (Auto) 5.6 Eos % (Auto) 0.7 Baso % (Auto) 0.6 Absolute Neuts (auto) 11.7 H Absolute Lymphs (auto) 1.1 Absolute Monos (auto) 0.8 Absolute Eos (auto) 0.1 Absolute Basos (auto) 0.1 Absolute Nucleated RBC 0.01 Nucleated RBC % 0 Sodium 137 Potassium 4.1 Chloride 103 Carbon Dioxide 30 Anion Gap 4 BUN 22 Creatinine 0.64 Est GFR ( Amer) 114.0 Est GFR (Non-Af Amer) 88.6 BUN/Creatinine Ratio 34.4 H Glucose 89 Calcium 9.2 Magnesium 1.8 L Assess/Plan/Problems-Billing Assessment: 82 yo female PMH anxiety/depression, b/l knee OA, pAFib, recent FTT and wellbutrin intentional overdose now on psychiatric floor (939 involuntary admission). Will need Acute Rehab/SNF as came from senior housing. - Patient Problems (1) Suicidal behavior Current Visit: No Status: Acute Code(s): R46.89 - OTHER SYMPTOMS AND SIGNS INVOLVING APPEARANCE AND BEHAVIOR SNOMED Code(s): 994693679 Comment: Wellbutrin overdose. Appreciate Psychiatry recs - Dr. Nguyễn recommended 939 involuntary admission to MHU but patient not happy. remeron still being considered (2) Atrial fibrillation Current Visit: No Status: Acute Code(s): I48.91 - UNSPECIFIED ATRIAL FIBRILLATION SNOMED Code(s): 42448800 Comment: paroxysmal. Complicated by Afib with RVR on 08/05 broke with dilt IV ~12mg. Has never been on a/c. f/u with Dr. Caldwell as outpatient. Mg> 2, K> 4. continue metoprolol 12.5mg BID. (3) Edema Current Visit: No Status: Acute Code(s): R60.9 - EDEMA, UNSPECIFIED SNOMED Code(s): 608616204 Comment: ECHO February 2016 EF 55-60%, repeat now 50-55% no e.o dystolic dysfunction. BMP 355 lasix 20mg daily duplex dopplers negative for DVT (4) FTT (failure to thrive) in adult Current Visit: No Status: Acute Comment: Continue PT(refused initially) and will likely need skilled rehab. UA with WBC, bacteria but UCx NG. s/p CFTX now cefdinir. Improving leukocytosis. Given her limited po intake and feeling that foods get stuck in her throat will get FINISHED [employer]OR eval. uncontrolled hypothyroidism plan as below. (5) HTN (hypertension) Current Visit: No Status: Acute Code(s): I10 - ESSENTIAL (PRIMARY) HYPERTENSION SNOMED Code(s): 96200523 Comment: Continue metoprolol. increase back to losartan at 100mg daily continue lasix 20mg daily (6) Hypothyroid Current Visit: No Status: Acute Code(s): E03.9 - HYPOTHYROIDISM, UNSPECIFIED SNOMED Code(s): 90488557 Comment: TSH 22 on 08/03/17. continue increased dose of 100 mcg. Recheck in 4-6 weeks. Status and Disposition: psych pt, medicine consulting. Will need SNF/acute rehab. Attending: Maykel Wilks
[2017-08-08] MEDS: Latanoprost 0.005%* 2.5 ml BTL BOTH EYES SCH (21:03)
[2017-08-09 07:50] LABS: ABS Basophils 0.2 10^3/ul (0-0.2); ABS Eosinophils 0.1 10^3/ul (0-0.6); ABS Lymphocytes 1.1 10^3/ul (1.0-4.8); ABS Neutrophils 14.9 10^3/ul (1.5-7.7); ABS Nucleated RBC 0.01 10^3/ul; Eosinophil % 0.4 % (0-6); Hematocrit 34 % (35-47); Hemoglobin 10.9 g/dl (12.0-16.0); Lymphocyte % 6.6 % (25-47); Mean Corpuscular HGB Conc 33 g/dl (31-36); Mean Corpuscular Hemoglobin 28 pg (27-31); Mean Corpuscular Volume 85 fL (80-97); Mean Platelet Volume 7 um3 (7.4-10.4); Nucleated Red Blood Cells % 0.1; Platelet Count 494 10^3/ul (150-450); Red Blood Count 3.95 10^6/ul (4.0-5.4); Red Cell Distribution Width 16 % (10.5-15); White Blood Count 17.3 10^3/ul (3.5-10.8)
[2017-08-09 08:15] LABS: EGFR Non-African American 93.7 (>60)
[2017-08-09] MEDS: Metoprolol Succinate XL TAB* 25 MG PO SCH ×2 (09:20→17:53)
[2017-08-09] MEDS: CMC:Dorzolamide 2% OPTH (NF) 10 ML BTL RIGHT EYE SCH ×2 (09:23→21:21)
[2017-08-09] MEDS: Levothyroxine TAB* 100 MCG TAB PO SCH (09:25)
[2017-08-09] MEDS: Losartan TAB* 25 MG PO SCH (09:25)
[2017-08-09] MEDS: CMCS:Cefdinir cap (NF) 300 MG CAP PO SCH ×2 (09:26→21:21)
[2017-08-09] MEDS: Furosemide TAB* 20 MG PO SCH (09:26)
[2017-08-09] MEDS: Magnesium Oxide TAB* 400 MG PO SCH (09:26)
[2017-08-09] MEDS: Vitamin THERAPEUTIC TAB PO SCH (09:26)
[2017-08-09] MEDS: Polyethylene Glycol 3350* 17 GM PACKET PO SCH ×2 (09:36→21:22)
[2017-08-09] MEDS ORDERED: Ibuprofen TAB* 400 MG PO PRN (11:27)
--- NOTE | 2017-08-09 14:20 | PN ---
Subjective - Subjective Date of Service: 08/09/17 Service Type: [id number] Hosp care 15 min low complexity Subjective: Francine seems less irritable today and she fully cooperative with PT and OT staff who came to do their assessments. The patient wants to go to rehab and does not want to be on the [facility] any further. With that said, she does acknowledge continued depressive symptoms and she is willing to consider an antidepressant, provided that it is not bupropion. She continues to deny further SI and feels that she would be safe leaving the BSU. She continues to receive many visits from friends at [facility]. Objective - Appearance Appearance: Well Developed/Nourished Dysmorphic Features: No Hygiene: Normal Grooming: Fairly Well Kept - Behavior Psychomotor Activities: Abnormal-Decreased Exhibits Abnormal Movement: No - Attitude and Relatedness Attitude and Relatedness: Superficially Cooperative Eye Contact: Fair - Speech Quality: Unpressured Latencies: Normal Quantity: Appropriate - Mood Patient's Decription of Mood: "Sad" - Affect Observed Affect: Constricted Affect Consistent with: Dysphoria - Thought Process Patient's Thought Process: Coherent Thought Content: No Passive Wish, No Suicidal Planning, No Homicidal Ideation, No Paranoid Ideation - Sensorium Experiencing Hallucinations: No, Sensorium is Clear Type of Hallucinations: Visual: No, Auditory: No, Command: No - Level of Consciousness Level of Consciousness: Alert Orientation: Yes Intact, Yes Orientated to Time, Yes Orientated to Place, Yes Orientated to Person - Impulse Control Impulse Control: Poor - Insight and Judgement Insight and Judgement: Impaired - Group Participation Particating in Group Activities: No - Medication Management Medication Management Adherence: Partial Assessment - Assessment Merits Inpatient Hospitalization: For Immediate Safety, For Stabilization Inpatient DSM-IV Dx: MDD, recurrent, severe with psychotic features Clinical Impression: 82 y.o. , white female with a history of recurrent major depression transferred from medicine after stabilization of atrial fibrillation and UTI who was consulted on due to depressed mood associated with decreased independent functioning and a suicide attempt via intentional OD on bupropion. Plan - Plan Treatment Plan: Name: FRANCINE MATHEWS Birthdate: 1935 [id number] We will start a trial of mirtazipine 15mg PO qhs with the patient's consent. PT and OT are evaluating her and initiating rehabilitative care. Disposition is between acute and subacute rehab. Continue to treat on inpatient basis under 9.39 involuntary statute. Hospitalist involvement appreciated. Continued Medication Management: Start Medication Medications: Current Medications Acetaminophen (Tylenol Adult Liq*) 650 mg PO Q4H PRN PRN Reason: for pain; or Temp >101 F Last Admin: 08/08/17 00:45 Dose: 650 mg Al Hydrox/Mg Hydrox/Simethicone (Maalox Plus*) 30 ml PO Q4H PRN PRN Reason: INDIGESTION Cefdinir (Cefdinir Cap (Nf)) 300 mg PO BID [facility] Last Admin: 08/09/17 09:26 Dose: 300 mg Dorzolamide HCl (Trusopt 2% Opth (Nf)) 1 drop RIGHT EYE BID [facility] PRN Reason: Protocol Last Admin: 08/09/17 09:23 Dose: 1 drop Enoxaparin Sodium (Lovenox(*)) 40 mg SUBCUT Q24H [facility] Last Admin: 08/08/17 15:39 Dose: 40 mg Furosemide (Lasix Tab*) 20 mg PO DAILY [facility] Last Admin: 08/09/17 09:26 Dose: 20 mg Ibuprofen (Motrin Tab*) 400 mg PO Q6H PRN PRN Reason: PAIN Latanoprost (Xalatan 0.005%*) 1 drop BOTH EYES BEDTIME [facility] PRN Reason: Protocol Last Admin: 08/08/17 21:03 Dose: 1 drop Levothyroxine Sodium (Synthroid Tab*) 100 mcg PO QAM@0600 [facility] Last Admin: 08/09/17 09:25 Dose: 100 mcg Losartan Potassium (Cozaar Tab*) 100 mg PO DAILY [facility] Last Admin: 08/09/17 09:25 Dose: 100 mg Magnesium Citrate (Citrate Of Magnesia*) 300 ml PO DAILY PRN PRN Reason: CONSTIPATION Magnesium Oxide (Magox 400 Tab*) 800 mg PO DAILY [facility] Last Admin: 08/09/17 09:26 Dose: 800 mg Metoprolol Succinate (Toprol Xl Tab*) 12.5 mg PO QAM [facility] Last Admin: 08/09/17 09:20 Dose: 12.5 mg Metoprolol Succinate (Toprol Xl Tab*) 12.5 mg PO QPM [facility] Last Admin: 08/08/17 18:42 Dose: 12.5 mg Multivitamins (Theragran Tab*) 1 tab PO DAILY [facility] Last Admin: 08/09/17 09:26 Dose: 1 tab Polyethylene Glycol/Electrolytes (Miralax*) 17 gm PO 0800,2100 [facility] Last Admin: 08/09/17 09:36 Dose: 17 gm - Discharge Plan Discharge Plan: Inpatient Hospitalization
[2017-08-09] MEDS: Enoxaparin(*) 40 MG/0.4 ML SYR SUBCUT SCH (16:13)
[2017-08-09] MEDS: Acetaminophen ADULT LIQ* 650 MG/20.3 ML UDC PO PRN (18:39)
[2017-08-09] MEDS: Mirtazapine TAB* 15 MG PO SCH (21:14)
[2017-08-09] MEDS: Latanoprost 0.005%* 2.5 ml BTL BOTH EYES SCH (21:28)
[2017-08-10 08:56] LABS: ABS Basophils 0.1 10^3/ul (0-0.2); ABS Eosinophils 0.2 10^3/ul (0-0.6); ABS Monocytes 0.9 10^3/ul (0-0.8); ABS Neutrophils 13.6 10^3/ul (1.5-7.7); ABS Nucleated RBC 0.02 10^3/ul; Eosinophil % 1.2 % (0-6); Hematocrit 36 % (35-47); Hemoglobin 11.4 g/dl (12.0-16.0); Lymphocyte % 6.1 % (25-47); Mean Corpuscular HGB Conc 32 g/dl (31-36); Mean Corpuscular Hemoglobin 27 pg (27-31); Mean Corpuscular Volume 85 fL (80-97); Mean Platelet Volume 7 um3 (7.4-10.4); Nucleated Red Blood Cells % 0.1; Platelet Count 475 10^3/ul (150-450); Red Blood Count 4.17 10^6/ul (4.0-5.4); Red Cell Distribution Width 16 % (10.5-15); White Blood Count 15.7 10^3/ul (3.5-10.8)
[2017-08-10] MEDS: Vitamin THERAPEUTIC TAB PO SCH (09:34)
[2017-08-10] MEDS: Furosemide TAB* 20 MG PO SCH (09:34)
[2017-08-10] MEDS: Metoprolol Succinate XL TAB* 25 MG PO SCH ×2 (09:35→18:55)
[2017-08-10] MEDS: Losartan TAB* 25 MG PO SCH (09:36)
[2017-08-10] MEDS: Magnesium Oxide TAB* 400 MG PO SCH (09:38)
[2017-08-10] MEDS: CMCS:Cefdinir cap (NF) 300 MG CAP PO SCH ×2 (09:41→20:56)
[2017-08-10] MEDS: CMC:Dorzolamide 2% OPTH (NF) 10 ML BTL RIGHT EYE SCH ×2 (09:41→20:55)
[2017-08-10] MEDS: Polyethylene Glycol 3350* 17 GM PACKET PO SCH ×2 (10:03→20:55)
[2017-08-10] MEDS: Levothyroxine TAB* 100 MCG TAB PO SCH (10:03)
--- NOTE | 2017-08-10 13:49 | PN ---
Subjective - Subjective Date of Service: 08/10/17 Service Type: [id number] Hosp care 15 min low complexity Subjective: Francine remains lethargic and unable to get out of bed without assistance. She took the mirtazapine last night but complains of sedation from all her medications. We go over the rationales of her various meds and I make a list for her to keep at her bedside. She presents as passive and still depressed. She continues to deny SI and is agreeable with referral to subacute rehab for reconditioning. Objective - Appearance Appearance: Well Developed/Nourished Dysmorphic Features: No Hygiene: Normal Grooming: Fairly Well Kept - Behavior Psychomotor Activities: Abnormal-Decreased Exhibits Abnormal Movement: No - Attitude and Relatedness Attitude and Relatedness: Superficially Cooperative Eye Contact: Fair - Speech Quality: Unpressured Latencies: Normal Quantity: Terse - Mood Patient's Decription of Mood: "Sad" - Affect Observed Affect: Depressed Affect Consistent with: Dysphoria - Thought Process Patient's Thought Process: Coherent Thought Content: No Passive Wish, No Suicidal Planning, No Homicidal Ideation, No Paranoid Ideation - Sensorium Experiencing Hallucinations: No, Sensorium is Clear Type of Hallucinations: Visual: No, Auditory: No, Command: No - Level of Consciousness Level of Consciousness: Alert Orientation: Yes Intact, Yes Orientated to Time, Yes Orientated to Place, Yes Orientated to Person - Impulse Control Impulse Control: Tenuous - Insight and Judgement Insight and Judgement: Fair - Group Participation Particating in Group Activities: No - Medication Management Medication Management Adherence: Yes Assessment - Assessment Merits Inpatient Hospitalization: Consolidate Improvements, Pending Safe DC Plan Inpatient DSM-IV Dx: MDD, recurrent, severe with psychotic features Clinical Impression: 82 y.o. , white female with a history of recurrent major depression transferred from medicine after stabilization of atrial fibrillation and UTI who was consulted on due to depressed mood associated with decreased independent functioning and a suicide attempt via intentional OD on bupropion. Plan - Plan Treatment Plan: Name: FRANCINE MATHEWS Birthdate: 1935 [id number] We have started a trial of mirtazipine 15mg PO qhs with the patient's consent. PT and OT are evaluating her and initiating rehabilitative care. Disposition will involve transfer to subacute rehab. Continue to treat on inpatient basis under 9.39 involuntary statute. Hospitalist involvement appreciated. Continued Medication Management: Start Medication Medications: Current Medications Acetaminophen (Tylenol Adult Liq*) 650 mg PO Q4H PRN PRN Reason: for pain; or Temp >101 F Last Admin: 08/09/17 18:39 Dose: 650 mg Al Hydrox/Mg Hydrox/Simethicone (Maalox Plus*) 30 ml PO Q4H PRN PRN Reason: INDIGESTION Cefdinir (Cefdinir Cap (Nf)) 300 mg PO BID [facility] Last Admin: 08/10/17 09:41 Dose: 300 mg Dorzolamide HCl (Trusopt 2% Opth (Nf)) 1 drop RIGHT EYE BID [facility] PRN Reason: Protocol Last Admin: 08/10/17 09:41 Dose: 1 drop Enoxaparin Sodium (Lovenox(*)) 40 mg SUBCUT Q24H [facility] Last Admin: 08/09/17 16:13 Dose: 40 mg Furosemide (Lasix Tab*) 20 mg PO DAILY [facility] Last Admin: 08/10/17 09:34 Dose: 20 mg Ibuprofen (Motrin Tab*) 400 mg PO Q6H PRN PRN Reason: PAIN Latanoprost (Xalatan 0.005%*) 1 drop BOTH EYES BEDTIME [facility] PRN Reason: Protocol Last Admin: 08/09/17 21:28 Dose: 1 drop Levothyroxine Sodium (Synthroid Tab*) 100 mcg PO QAM@0600 [facility] Last Admin: 08/10/17 10:03 Dose: 100 mcg Losartan Potassium (Cozaar Tab*) 100 mg PO DAILY [facility] Last Admin: 08/10/17 09:36 Dose: 100 mg Magnesium Citrate (Citrate Of Magnesia*) 300 ml PO DAILY PRN PRN Reason: CONSTIPATION Magnesium Oxide (Magox 400 Tab*) 800 mg PO DAILY [facility] Last Admin: 08/10/17 09:38 Dose: 800 mg Metoprolol Succinate (Toprol Xl Tab*) 12.5 mg PO QAM [facility] Last Admin: 08/10/17 09:35 Dose: 12.5 mg Metoprolol Succinate (Toprol Xl Tab*) 12.5 mg PO QPM [facility] Last Admin: 08/09/17 17:53 Dose: 12.5 mg Mirtazapine (Remeron Tab*) 15 mg PO BEDTIME [facility] Last Admin: 08/09/17 21:14 Dose: 15 mg Multivitamins (Theragran Tab*) 1 tab PO DAILY [facility] Last Admin: 08/10/17 09:34 Dose: 1 tab Polyethylene Glycol/Electrolytes (Miralax*) 17 gm PO 0800,2100 [facility] Last Admin: 08/10/17 10:03 Dose: 17 gm - Discharge Plan Discharge Plan: Inpatient Hospitalization
[2017-08-10 14:30] LABS: EGFR Non-African American 90.2 (>60)
[2017-08-10] MEDS: Enoxaparin(*) 40 MG/0.4 ML SYR SUBCUT SCH (15:51)
[2017-08-10] MEDS: Latanoprost 0.005%* 2.5 ml BTL BOTH EYES SCH (20:56)
[2017-08-10] MEDS: Mirtazapine TAB* 15 MG PO SCH (20:57)
[2017-08-11] MEDS: Levothyroxine TAB* 100 MCG TAB PO SCH (07:48)
[2017-08-11] MEDS: Losartan TAB* 25 MG PO SCH (08:29)
[2017-08-11] MEDS: Vitamin THERAPEUTIC TAB PO SCH (08:29)
[2017-08-11] MEDS: Metoprolol Succinate XL TAB* 25 MG PO SCH ×2 (08:30→19:01)
[2017-08-11] MEDS: Magnesium Oxide TAB* 400 MG PO SCH (08:31)
[2017-08-11] MEDS: Polyethylene Glycol 3350* 17 GM PACKET PO SCH ×2 (08:31→20:54)
[2017-08-11] MEDS: CMCS:Cefdinir cap (NF) 300 MG CAP PO SCH ×2 (08:32→20:54)
[2017-08-11] MEDS: Furosemide TAB* 20 MG PO SCH (08:32)
[2017-08-11] MEDS: CMC:Dorzolamide 2% OPTH (NF) 10 ML BTL RIGHT EYE SCH ×2 (08:37→20:52)
[2017-08-11 09:58] LABS: ABS Basophils 0.1 10^3/ul (0-0.2); ABS Eosinophils 0.2 10^3/ul (0-0.6); ABS Lymphocytes 1.1 10^3/ul (1.0-4.8); ABS Monocytes 0.9 10^3/ul (0-0.8); ABS Neutrophils 13.4 10^3/ul (1.5-7.7); ABS Nucleated RBC 0 10^3/ul; Hematocrit 34 % (35-47); Hemoglobin 10.7 g/dl (12.0-16.0); Lymphocyte % 7.3 % (25-47); Mean Corpuscular HGB Conc 32 g/dl (31-36); Mean Corpuscular Hemoglobin 27 pg (27-31); Mean Corpuscular Volume 86 fL (80-97); Mean Platelet Volume 7 um3 (7.4-10.4); Nucleated Red Blood Cells % 0; Platelet Count 497 10^3/ul (150-450); Red Cell Distribution Width 16 % (10.5-15); White Blood Count 15.7 10^3/ul (3.5-10.8)
[2017-08-11 10:24] LABS: EGFR Non-African American 82.6 (>60)
--- NOTE | 2017-08-11 11:27 | PN ---
Subjective - Subjective Date of Service: 08/11/17 Service Type: [id number] Hosp care 15 min low complexity Subjective: Patient appears less sedated today and less irritable. Is agreeable with PT/OT work today and they will bring the equipment from [facility] to assist in lifting her out of bed. She continues to deny SI. Objective - Appearance Appearance: Well Developed/Nourished Dysmorphic Features: No Hygiene: Normal Grooming: Fairly Well Kept - Behavior Psychomotor Activities: Abnormal-Decreased Exhibits Abnormal Movement: No - Attitude and Relatedness Attitude and Relatedness: Cooperative Eye Contact: Good - Speech Quality: Unpressured Latencies: Normal Quantity: Appropriate - Mood Patient's Decription of Mood: "Okay" - Affect Observed Affect: Fair Affect Consistent with: Euthymia - Thought Process Patient's Thought Process: Coherent Thought Content: No Passive Wish, No Suicidal Planning, No Homicidal Ideation, No Paranoid Ideation - Sensorium Experiencing Hallucinations: No, Sensorium is Clear Type of Hallucinations: Visual: No, Auditory: No, Command: No - Level of Consciousness Level of Consciousness: Alert Orientation: Yes Intact, Yes Orientated to Time, Yes Orientated to Place, Yes Orientated to Person - Impulse Control Impulse Control: Tenuous - Insight and Judgement Insight and Judgement: Fair - Group Participation Particating in Group Activities: No - Medication Management Medication Management Adherence: Yes Assessment - Assessment Merits Inpatient Hospitalization: Consolidate Improvements, Pending Safe DC Plan Inpatient DSM-IV Dx: MDD, recurrent, severe with psychotic features Clinical Impression: 82 y.o. , white female with a history of recurrent major depression transferred from medicine after stabilization of atrial fibrillation and UTI who was consulted on due to depressed mood associated with decreased independent functioning and a suicide attempt via intentional OD on bupropion. Plan - Plan Treatment Plan: Name: JULIO MATHEWS Birthdate: 1935 [id number] We have started a trial of mirtazipine 15mg PO qhs with the patient's consent. PT and OT are evaluating her and initiating rehabilitative care. Disposition will involve transfer to subacute rehab. Continue to treat on inpatient basis. Hospitalist involvement appreciated. Continued Medication Management: Start Medication Medications: Current Medications Acetaminophen (Tylenol Adult Liq*) 650 mg PO Q4H PRN PRN Reason: for pain; or Temp >101 F Last Admin: 08/09/17 18:39 Dose: 650 mg Al Hydrox/Mg Hydrox/Simethicone (Maalox Plus*) 30 ml PO Q4H PRN PRN Reason: INDIGESTION Cefdinir (Cefdinir Cap (Nf)) 300 mg PO BID [facility] Last Admin: 08/11/17 08:32 Dose: 300 mg Dorzolamide HCl (Trusopt 2% Opth (Nf)) 1 drop RIGHT EYE BID [facility] PRN Reason: Protocol Last Admin: 08/11/17 08:37 Dose: 1 drop Enoxaparin Sodium (Lovenox(*)) 40 mg SUBCUT Q24H [facility] Last Admin: 08/10/17 15:51 Dose: 40 mg Furosemide (Lasix Tab*) 20 mg PO DAILY [facility] Last Admin: 08/11/17 08:32 Dose: 20 mg Ibuprofen (Motrin Tab*) 400 mg PO Q6H PRN PRN Reason: PAIN Latanoprost (Xalatan 0.005%*) 1 drop BOTH EYES BEDTIME [facility] PRN Reason: Protocol Last Admin: 08/10/17 20:56 Dose: 1 drop Levothyroxine Sodium (Synthroid Tab*) 100 mcg PO QAM@0600 [facility] Last Admin: 08/11/17 07:48 Dose: 100 mcg Losartan Potassium (Cozaar Tab*) 100 mg PO DAILY [facility] Last Admin: 08/11/17 08:29 Dose: 100 mg Magnesium Citrate (Citrate Of Magnesia*) 300 ml PO DAILY PRN PRN Reason: CONSTIPATION Magnesium Oxide (Magox 400 Tab*) 800 mg PO DAILY [facility] Last Admin: 08/11/17 08:31 Dose: 800 mg Metoprolol Succinate (Toprol Xl Tab*) 12.5 mg PO QAM [facility] Last Admin: 08/11/17 08:30 Dose: 12.5 mg Metoprolol Succinate (Toprol Xl Tab*) 12.5 mg PO QPM [facility] Last Admin: 08/10/17 18:55 Dose: 12.5 mg Mirtazapine (Remeron Tab*) 15 mg PO BEDTIME [facility] Last Admin: 08/10/17 20:57 Dose: 15 mg Multivitamins (Theragran Tab*) 1 tab PO DAILY [facility] Last Admin: 08/11/17 08:29 Dose: 1 tab Polyethylene Glycol/Electrolytes (Miralax*) 17 gm PO 0800,2100 [facility] Last Admin: 08/11/17 08:31 Dose: 17 gm - Discharge Plan Discharge Plan: Inpatient Hospitalization
[2017-08-11] MEDS: Enoxaparin(*) 40 MG/0.4 ML SYR SUBCUT SCH (15:50)
[2017-08-11] MEDS: Latanoprost 0.005%* 2.5 ml BTL BOTH EYES SCH (20:52)
[2017-08-11] MEDS: Mirtazapine TAB* 15 MG PO SCH (20:54)
--- NOTE | 2017-08-11 21:12 | PN ---
Subjective Date of Service: 08/11/17 Interval History: up to rolling chair with PT. Percy day 2. Eating dinner during exam. Wants pain prns given prior to PT work. Afebrile. hemodynamically stable. Objective Active Medications: Acetaminophen (Tylenol Adult Liq*) 650 mg PO Q4H PRN PRN Reason: for pain; or Temp >101 F Last Admin: 08/09/17 18:39 Dose: 650 mg Al Hydrox/Mg Hydrox/Simethicone (Maalox Plus*) 30 ml PO Q4H PRN PRN Reason: INDIGESTION Cefdinir (Cefdinir Cap (Nf)) 300 mg PO BID [facility] Last Admin: 08/11/17 20:54 Dose: 300 mg Dorzolamide HCl (Trusopt 2% Opth (Nf)) 1 drop RIGHT EYE BID [facility] PRN Reason: Protocol Last Admin: 08/11/17 20:52 Dose: 1 drop Enoxaparin Sodium (Lovenox(*)) 40 mg SUBCUT Q24H [facility] Last Admin: 08/11/17 15:50 Dose: 40 mg Furosemide (Lasix Tab*) 20 mg PO DAILY [facility] Last Admin: 08/11/17 08:32 Dose: 20 mg Ibuprofen (Motrin Tab*) 400 mg PO Q6H PRN PRN Reason: PAIN Latanoprost (Xalatan 0.005%*) 1 drop BOTH EYES BEDTIME [facility] PRN Reason: Protocol Last Admin: 08/11/17 20:52 Dose: 1 drop Levothyroxine Sodium (Synthroid Tab*) 100 mcg PO QAM@0600 [facility] Last Admin: 08/11/17 07:48 Dose: 100 mcg Losartan Potassium (Cozaar Tab*) 100 mg PO DAILY [facility] Last Admin: 08/11/17 08:29 Dose: 100 mg Magnesium Citrate (Citrate Of Magnesia*) 300 ml PO DAILY PRN PRN Reason: CONSTIPATION Magnesium Oxide (Magox 400 Tab*) 800 mg PO DAILY [facility] Last Admin: 08/11/17 08:31 Dose: 800 mg Metoprolol Succinate (Toprol Xl Tab*) 12.5 mg PO QAM [facility] Last Admin: 08/11/17 08:30 Dose: 12.5 mg Metoprolol Succinate (Toprol Xl Tab*) 12.5 mg PO QPM [facility] Last Admin: 08/11/17 19:01 Dose: 12.5 mg Mirtazapine (Remeron Tab*) 15 mg PO BEDTIME [facility] Last Admin: 08/11/17 20:54 Dose: 15 mg Multivitamins (Theragran Tab*) 1 tab PO DAILY [facility] Last Admin: 08/11/17 08:29 Dose: 1 tab Polyethylene Glycol/Electrolytes (Miralax*) 17 gm PO 0800,2100 [facility] Last Admin: 08/11/17 20:54 Dose: 17 gm Oxygen Devices in Use Now: None Appearance: NAD, better mood overall. Eyes: No Scleral Icterus, PERRLA Ears/Nose/Mouth/Throat: NL Teeth, Lips, Gums, Mucous Membranes Moist Respiratory: Symmetrical Chest Expansion and Respiratory Effort, Clear to Auscultation Cardiovascular: NL Sounds; No Murmurs; No JVD, RRR Abdominal: NL Sounds; No Tenderness; No Distention, No Hepatosplenomegaly Extremities: No Clubbing, Cyanosis, - - 1+ edema Skin: No Rash or Ulcers, No Nodules or Sclerosis Neurological: Alert and Oriented x 3, NL Sensation, NL Gait Nutrition: Taking PO's Result Diagrams: 08/11/17 09:41 08/11/17 09:41 Additional Lab and Data: Laboratory Results - last 24 hr 08/11/17 08/11/17 09:41 09:41 WBC 15.7 H RBC 3.90 L Hgb 10.7 L Hct 34 L MCV 86 MCH 27 MCHC 32 RDW 16 H Plt Count 497 H MPV 7 L Neut % (Auto) 85.3 H Lymph % (Auto) 7.3 L Pender % (Auto) 5.8 Eos % (Auto) 1.0 Baso % (Auto) 0.6 Absolute Neuts (auto) 13.4 H Absolute Lymphs (auto) 1.1 Absolute Monos (auto) 0.9 H Absolute Eos (auto) 0.2 Absolute Basos (auto) 0.1 Absolute Nucleated RBC 0 Nucleated RBC % 0 Sodium 136 Potassium 4.0 Chloride 101 Carbon Dioxide 32 Anion Gap 3 BUN 30 H Creatinine 0.68 Est GFR ( Amer) 106.3 Est GFR (Non-Af Amer) 82.6 BUN/Creatinine Ratio 44.1 H Glucose 109 H Calcium 9.6 Assess/Plan/Problems-Billing Assessment: 82 yo female PMH anxiety/depression, b/l knee OA, pAFib, recent FTT, thyroid cancer s/p thyroidecotmy and wellbutrin intentional overdose now on psychiatric floor (939 involuntary admission). Will need Acute Rehab/SNF as came from senior housing and very deconditioned. Now on remeron. Persistent leukocytosis, unchanged on cefdinir. Could consider outpatient heme onc follow up to rule out occult malignancy (ashlee given thyroid history) for FTT, leukocytosis. hypothyroid. - Patient Problems (1) Suicidal behavior Current Visit: No Status: Acute Code(s): R46.89 - OTHER SYMPTOMS AND SIGNS INVOLVING APPEARANCE AND BEHAVIOR SNOMED Code(s): 328162412 Comment: Wellbutrin overdose. Appreciate Psychiatry recs - Dr. Nguyễn recommended 939 involuntary admission to [facility]. Fatalis and anxiety seem improved , currently day 2 of remeron (2) Atrial fibrillation Current Visit: No Status: Acute Code(s): I48.91 - UNSPECIFIED ATRIAL FIBRILLATION SNOMED Code(s): 48673424 Comment: paroxysmal. Complicated by Afib with RVR on 08/05 broke with dilt IV ~12mg. Has never been on a/c. f/u with Dr. Caldwell as outpatient. Mg> 2, K> 4. continue metoprolol 12.5mg BID. (3) Edema Current Visit: No Status: Acute Code(s): R60.9 - EDEMA, UNSPECIFIED SNOMED Code(s): 383557162 Comment: ECHO February 2016 EF 55-60%, repeat now 50-55% no e.o dystolic dysfunction. BMP 355 lasix 20mg daily duplex dopplers negative for DVT (4) FTT (failure to thrive) in adult Current Visit: No Status: Acute Comment: Continue PT and will likely need skilled rehab. UA with WBC, bacteria but UCx NG. s/p CFTX now cefdinir. Will stop (7 day course ) Leukocytosis persists. Could consider a heme/on consult for FTT/leukocytosis to evaluate for occult malignancy. Hx of thyroid cancer. Given her limited po intake and feeling that foods get stuck in her throat appreciate FOOD TASTER eval: mechanical ground, extra saucies and gravies, thin liquids. uncontrolled hypothyroidism plan as below. (5) HTN (hypertension) Current Visit: No Status: Acute Code(s): I10 - ESSENTIAL (PRIMARY) HYPERTENSION SNOMED Code(s): 40918513 Comment: Continue metoprolol. continue losartan at 100mg daily continue lasix 20mg daily (6) Hypothyroid Current Visit: No Status: Acute Code(s): E03.9 - HYPOTHYROIDISM, UNSPECIFIED SNOMED Code(s): 79067824 Comment: TSH 22 on 08/03/17. continue increased dose of 100 mcg. Recheck in 4-6 weeks. Status and Disposition: psych 939 pt, medicine has been consulting, now intermittently and will sign off for now but please call with any question. Will likely need SNF/acute rehab.
[2017-08-12] MEDS: Levothyroxine TAB* 100 MCG TAB PO SCH (07:35)
[2017-08-12] MEDS: Metoprolol Succinate XL TAB* 25 MG PO SCH ×2 (07:42→18:50)
[2017-08-12] MEDS: Vitamin THERAPEUTIC TAB PO SCH (07:43)
[2017-08-12] MEDS: Losartan TAB* 25 MG PO SCH (07:44)
[2017-08-12] MEDS: CMCS:Cefdinir cap (NF) 300 MG CAP PO SCH (07:45)
[2017-08-12] MEDS: Furosemide TAB* 20 MG PO SCH (07:45)
[2017-08-12] MEDS: Magnesium Oxide TAB* 400 MG PO SCH (07:45)
[2017-08-12] MEDS: CMC:Dorzolamide 2% OPTH (NF) 10 ML BTL RIGHT EYE SCH ×2 (07:47→20:05)
[2017-08-12] MEDS: Polyethylene Glycol 3350* 17 GM PACKET PO SCH ×2 (07:48→20:27)
--- NOTE | 2017-08-12 14:48 | PN ---
Subjective - Subjective Date of Service: 08/12/17 Service Type: 37609 Hosp care 15 min low complexity Subjective: Francine remains passive and fatigued, only getting out of bed with the assistance of patient-raising equipment from the [facility]. She continues to deny SI and feels that her antidepressant is making her drowsy. She is agreeable with rehab placement. Objective - Appearance Appearance: Well Developed/Nourished Dysmorphic Features: No Hygiene: Normal Grooming: Fairly Well Kept - Behavior Psychomotor Activities: Abnormal-Decreased Exhibits Abnormal Movement: No - Attitude and Relatedness Attitude and Relatedness: Cooperative Eye Contact: Fair - Speech Quality: Unpressured Latencies: Normal Quantity: Terse - Mood Patient's Decription of Mood: "Okay" - Affect Observed Affect: Fair Affect Consistent with: Euthymia - Thought Process Patient's Thought Process: Coherent Thought Content: No Passive Wish, No Suicidal Planning, No Homicidal Ideation, No Paranoid Ideation - Sensorium Experiencing Hallucinations: No, Sensorium is Clear Type of Hallucinations: Visual: No, Auditory: No, Command: No - Level of Consciousness Level of Consciousness: Lethargic Orientation: Yes Intact, Yes Orientated to Time, Yes Orientated to Place, Yes Orientated to Person - Impulse Control Impulse Control: Tenuous - Insight and Judgement Insight and Judgement: Fair - Group Participation Particating in Group Activities: No - Medication Management Medication Management Adherence: Yes Assessment - Assessment Merits Inpatient Hospitalization: Consolidate Improvements, Pending Safe DC Plan Inpatient DSM-IV Dx: MDD, recurrent, severe with psychotic features Clinical Impression: 82 y.o. , white female with a history of recurrent major depression transferred from medicine after stabilization of atrial fibrillation and UTI who was consulted on due to depressed mood associated with decreased independent functioning and a suicide attempt via intentional OD on bupropion. Plan - Plan Treatment Plan: Name: FRANCINE MATHEWS Birthdate: 1935 [id number] We have started a trial of mirtazipine 15mg PO qhs with the patient's consent. We will increase this to 30mg to make it less sedating. PT and OT are evaluating her and initiating rehabilitative care. Disposition will involve transfer to subacute rehab. Continue to treat on inpatient basis. Hospitalist involvement appreciated. Continued Medication Management: Start Medication Medications: Current Medications Acetaminophen (Tylenol Adult Liq*) 650 mg PO Q4H PRN PRN Reason: for pain; or Temp >101 F Last Admin: 08/09/17 18:39 Dose: 650 mg Al Hydrox/Mg Hydrox/Simethicone (Maalox Plus*) 30 ml PO Q4H PRN PRN Reason: INDIGESTION Cefdinir (Cefdinir Cap (Nf)) 300 mg PO BID [facility] Last Admin: 08/12/17 07:45 Dose: 300 mg Dorzolamide HCl (Trusopt 2% Opth (Nf)) 1 drop RIGHT EYE BID [facility] PRN Reason: Protocol Last Admin: 08/12/17 07:47 Dose: 1 drop Enoxaparin Sodium (Lovenox(*)) 40 mg SUBCUT Q24H [facility] Last Admin: 08/11/17 15:50 Dose: 40 mg Furosemide (Lasix Tab*) 20 mg PO DAILY [facility] Last Admin: 08/12/17 07:45 Dose: 20 mg Ibuprofen (Motrin Tab*) 400 mg PO Q6H PRN PRN Reason: PAIN Last Admin: 08/12/17 11:27 Dose: 400 mg Latanoprost (Xalatan 0.005%*) 1 drop BOTH EYES BEDTIME [facility] PRN Reason: Protocol Last Admin: 08/11/17 20:52 Dose: 1 drop Levothyroxine Sodium (Synthroid Tab*) 100 mcg PO QAM@0600 [facility] Last Admin: 08/12/17 07:35 Dose: 100 mcg Losartan Potassium (Cozaar Tab*) 100 mg PO DAILY [facility] Last Admin: 08/12/17 07:44 Dose: 100 mg Magnesium Citrate (Citrate Of Magnesia*) 300 ml PO DAILY PRN PRN Reason: CONSTIPATION Magnesium Oxide (Magox 400 Tab*) 800 mg PO DAILY [facility] Last Admin: 08/12/17 07:45 Dose: 800 mg Metoprolol Succinate (Toprol Xl Tab*) 12.5 mg PO QAM [facility] Last Admin: 08/12/17 07:42 Dose: 12.5 mg Metoprolol Succinate (Toprol Xl Tab*) 12.5 mg PO QPM [facility] Last Admin: 08/11/17 19:01 Dose: 12.5 mg Mirtazapine (Remeron Tab*) 15 mg PO BEDTIME [facility] Last Admin: 08/11/17 20:54 Dose: 15 mg Multivitamins (Theragran Tab*) 1 tab PO DAILY [facility] Last Admin: 08/12/17 07:43 Dose: 1 tab Polyethylene Glycol/Electrolytes (Miralax*) 17 gm PO 0800,2100 [facility] Last Admin: 08/12/17 07:48 Dose: 17 gm - Discharge Plan Discharge Plan: Inpatient Hospitalization
[2017-08-12] MEDS: Enoxaparin(*) 40 MG/0.4 ML SYR SUBCUT SCH (15:25)
[2017-08-12] MEDS: Cefdinir 250mg/5 ml* 100 ml ORAL.SUSP PO SCH (21:14)
[2017-08-12] MEDS: Mirtazapine TAB* 15 MG PO SCH (21:17)
[2017-08-12] MEDS: Latanoprost 0.005%* 2.5 ml BTL BOTH EYES SCH (21:18)
[2017-08-13] MEDS: Levothyroxine TAB* 100 MCG TAB PO SCH (08:03)
[2017-08-13] MEDS: Polyethylene Glycol 3350* 17 GM PACKET PO SCH ×2 (08:03→21:46)
[2017-08-13 08:19] LABS: Urine Appearance Cloudy; Urine Blood Negative (Negative); Urine Color Yellow; Urine Ketones Negative (Negative); Urine Protein 1+(30 mg/dL) (Negative); Urine Specific Gravity 1.014 (1.010-1.030); Urine Urobilinogen Negative (Negative)
[2017-08-13] MEDS: Cefdinir 250mg/5 ml* 100 ml ORAL.SUSP PO SCH ×2 (09:42→21:39)
[2017-08-13] MEDS: CMC:Dorzolamide 2% OPTH (NF) 10 ML BTL RIGHT EYE SCH ×2 (09:43→21:43)
[2017-08-13] MEDS: Magnesium Oxide TAB* 400 MG PO SCH (09:44)
[2017-08-13] MEDS: Vitamin THERAPEUTIC TAB PO SCH (09:44)
[2017-08-13] MEDS: Metoprolol Succinate XL TAB* 25 MG PO SCH ×4 (10:16→18:14)
[2017-08-13] MEDS: Losartan TAB* 25 MG PO SCH (10:16)
[2017-08-13] MEDS: Furosemide TAB* 20 MG PO SCH (13:11)
[2017-08-13] MEDS ORDERED: Metoprolol Succinate XL TAB* 25 MG PO SCH (14:00)
[2017-08-13] MEDS: Enoxaparin(*) 40 MG/0.4 ML SYR SUBCUT SCH (15:18)
[2017-08-13] MEDS: Mirtazapine TAB* 15 MG PO SCH (21:42)
[2017-08-13] MEDS: Latanoprost 0.005%* 2.5 ml BTL BOTH EYES SCH (21:43)
[2017-08-14] MEDS: Levothyroxine TAB* 100 MCG TAB PO SCH (09:49)
[2017-08-14] MEDS: Polyethylene Glycol 3350* 17 GM PACKET PO SCH ×2 (09:49→21:27)
[2017-08-14] MEDS: CMC:Dorzolamide 2% OPTH (NF) 10 ML BTL RIGHT EYE SCH ×2 (09:51→21:17)
[2017-08-14] MEDS: Losartan TAB* 25 MG PO SCH (09:51)
[2017-08-14] MEDS: Cefdinir 250mg/5 ml* 100 ml ORAL.SUSP PO SCH ×2 (09:51→21:18)
[2017-08-14] MEDS: Magnesium Oxide TAB* 400 MG PO SCH (09:52)
[2017-08-14] MEDS: Vitamin THERAPEUTIC TAB PO SCH (09:53)
[2017-08-14] MEDS: Metoprolol Succinate XL TAB* 25 MG PO SCH ×2 (09:53→18:39)
[2017-08-14] MEDS: Enoxaparin(*) 40 MG/0.4 ML SYR SUBCUT SCH (15:20)
[2017-08-14] MEDS: Latanoprost 0.005%* 2.5 ml BTL BOTH EYES SCH (21:16)
[2017-08-14] MEDS: Mirtazapine TAB* 15 MG PO SCH (21:17)
[2017-08-15] MEDS ORDERED: Acetaminophen PED LIQ* 160 MG/5 ML UDC PO PRN (01:00)
[2017-08-15] MEDS: Levothyroxine TAB* 100 MCG TAB PO SCH (08:09)
[2017-08-15] MEDS: Polyethylene Glycol 3350* 17 GM PACKET PO SCH ×3 (08:14→20:49)
[2017-08-15] MEDS: Furosemide TAB* 20 MG PO SCH (08:27)
[2017-08-15] MEDS: Losartan TAB* 25 MG PO SCH (08:27)
[2017-08-15] MEDS: Metoprolol Succinate XL TAB* 25 MG PO SCH ×3 (08:28→19:29)
[2017-08-15] MEDS: CMC:Dorzolamide 2% OPTH (NF) 10 ML BTL RIGHT EYE SCH ×3 (09:31→19:42)
[2017-08-15] MEDS: Cefdinir 250mg/5 ml* 100 ml ORAL.SUSP PO SCH ×2 (09:31→20:34)
[2017-08-15] MEDS: Vitamin THERAPEUTIC TAB PO SCH (09:45)
[2017-08-15] MEDS: Magnesium Oxide TAB* 400 MG PO SCH (09:46)
--- NOTE | 2017-08-15 11:06 | PN ---
Subjective - Subjective Date of Service: 08/15/17 Service Type: [id number] Hosp care 15 min low complexity Subjective: Francine continues to deny SI and feels that her mood is improving, although she remains "anxious to get out of here." She has been adherent with mirtazapine as prescribed but still seems slightly sedated in the AM, perhaps from this. She complains that we are not administering her glaucoma medications per her outpatient routine. I did confirm later with her outpatient pharmacy, [facility], that she is supposed to be taking dorzolamine 2% one drop to right eye three times per day, not twice. Objective - Appearance Appearance: Well Developed/Nourished Dysmorphic Features: No Hygiene: Normal Grooming: Fairly Well Kept - Behavior Psychomotor Activities: Abnormal-Decreased Exhibits Abnormal Movement: No - Attitude and Relatedness Attitude and Relatedness: Cooperative Eye Contact: Fair - Speech Quality: Unpressured Latencies: Normal Quantity: Terse - Mood Patient's Decription of Mood: "Okay" - Affect Observed Affect: Fair Affect Consistent with: Euthymia - Thought Process Patient's Thought Process: Coherent Thought Content: No Passive Wish, No Suicidal Planning, No Homicidal Ideation, No Paranoid Ideation - Sensorium Experiencing Hallucinations: No, Sensorium is Clear Type of Hallucinations: Visual: No, Auditory: No, Command: No - Level of Consciousness Level of Consciousness: Lethargic Orientation: Yes Intact, Yes Orientated to Time, Yes Orientated to Place, Yes Orientated to Person - Impulse Control Impulse Control: Tenuous - Insight and Judgement Insight and Judgement: Fair - Group Participation Particating in Group Activities: No - Medication Management Medication Management Adherence: Yes Assessment - Assessment Merits Inpatient Hospitalization: Consolidate Improvements, Pending Safe DC Plan Inpatient DSM-IV Dx: MDD, recurrent, severe with psychotic features Clinical Impression: 82 y.o. , white female with a history of recurrent major depression transferred from medicine after stabilization of atrial fibrillation and UTI who was consulted on due to depressed mood associated with decreased independent functioning and a suicide attempt via intentional OD on bupropion. Plan - Plan Treatment Plan: Name: FRANCINE MATHEWS Birthdate: 1935 [id number] We have started a trial of mirtazipine 30mg PO qhs with the patient's consent. PT and OT are evaluating her and initiating rehabilitative care. Disposition will involve transfer to subacute rehab. Continue to treat on inpatient basis. Hospitalist involvement appreciated. Continued Medication Management: Start Medication Medications: Current Medications Acetaminophen (Tylenol Ped Liq Udc*) 650 mg PO Q4H PRN PRN Reason: for pain; or Temp >101 F Last Admin: 08/15/17 00:15 Dose: 640 mg Al Hydrox/Mg Hydrox/Simethicone (Maalox Plus*) 30 ml PO Q4H PRN PRN Reason: INDIGESTION Last Admin: 08/12/17 19:18 Dose: 30 ml Cefdinir (Omnicef 250 Mg/5 Ml*) 300 mg PO BID [facility] Last Admin: 08/15/17 09:31 Dose: 300 mg Dorzolamide HCl (Trusopt 2% Opth (Nf)) 1 drop RIGHT EYE BID [facility] PRN Reason: Protocol Last Admin: 08/15/17 09:31 Dose: 1 drop Enoxaparin Sodium (Lovenox(*)) 40 mg SUBCUT Q24H [facility] Last Admin: 08/14/17 15:20 Dose: 40 mg Furosemide (Lasix Tab*) 20 mg PO MoWeFr@0900 [facility] Last Admin: 08/15/17 08:27 Dose: Not Given Ibuprofen (Motrin Tab*) 400 mg PO Q6H PRN PRN Reason: PAIN Last Admin: 08/12/17 11:27 Dose: 400 mg Latanoprost (Xalatan 0.005%*) 1 drop BOTH EYES BEDTIME [facility] PRN Reason: Protocol Last Admin: 08/14/17 21:16 Dose: 1 drop Levothyroxine Sodium (Synthroid Tab*) 100 mcg PO QAM@0600 [facility] Last Admin: 08/15/17 08:09 Dose: 100 mcg Losartan Potassium (Cozaar Tab*) 50 mg PO DAILY [facility] Last Admin: 08/15/17 08:27 Dose: Not Given Magnesium Citrate (Citrate Of Magnesia*) 300 ml PO DAILY PRN PRN Reason: CONSTIPATION Magnesium Oxide (Magox 400 Tab*) 800 mg PO DAILY [facility] Last Admin: 08/15/17 09:46 Dose: 800 mg Metoprolol Succinate (Toprol Xl Tab*) 12.5 mg PO QPM [facility] Last Admin: 08/14/17 18:39 Dose: Not Given Metoprolol Succinate (Toprol Xl Tab*) 12.5 mg PO QAM [facility] Last Admin: 08/15/17 08:28 Dose: Not Given Mirtazapine (Remeron Tab*) 30 mg PO BEDTIME [facility] Last Admin: 08/14/17 21:17 Dose: 30 mg Multivitamins (Theragran Tab*) 1 tab PO DAILY [facility] Last Admin: 08/15/17 09:45 Dose: 1 tab Polyethylene Glycol/Electrolytes (Miralax*) 17 gm PO 0800,2100 [facility] Last Admin: 08/15/17 08:14 Dose: Not Given - Discharge Plan Discharge Plan: Inpatient Hospitalization
[2017-08-15] MEDS ORDERED: Acetaminophen ADULT LIQ* 650 MG/20.3 ML UDC PO PRN (12:00)
[2017-08-15] MEDS: Enoxaparin(*) 40 MG/0.4 ML SYR SUBCUT SCH (15:42)
[2017-08-15] MEDS: Mirtazapine TAB* 15 MG PO SCH (20:34)
[2017-08-15] MEDS: Latanoprost 0.005%* 2.5 ml BTL BOTH EYES SCH (23:16)
[2017-08-16] MEDS: Losartan TAB* 25 MG PO SCH (07:49)
[2017-08-16] MEDS: Metoprolol Succinate XL TAB* 25 MG PO SCH ×2 (07:52→20:03)
[2017-08-16] MEDS: Magnesium Oxide TAB* 400 MG PO SCH (07:53)
[2017-08-16] MEDS: Levothyroxine TAB* 100 MCG TAB PO SCH (07:53)
[2017-08-16] MEDS: Cefdinir 250mg/5 ml* 100 ml ORAL.SUSP PO SCH ×2 (07:54→21:13)
[2017-08-16] MEDS: Vitamin THERAPEUTIC TAB PO SCH (07:54)
[2017-08-16] MEDS: Polyethylene Glycol 3350* 17 GM PACKET PO SCH ×2 (07:54→21:17)
[2017-08-16] MEDS: CMC:Dorzolamide 2% OPTH (NF) 10 ML BTL RIGHT EYE SCH ×3 (07:56→19:58)
[2017-08-16] MEDS: Enoxaparin(*) 40 MG/0.4 ML SYR SUBCUT SCH (15:27)
[2017-08-16] MEDS: Latanoprost 0.005%* 2.5 ml BTL BOTH EYES SCH (21:14)
[2017-08-16] MEDS: Mirtazapine TAB* 15 MG PO SCH (21:16)
[2017-08-17] MEDS: Polyethylene Glycol 3350* 17 GM PACKET PO SCH (09:19)
[2017-08-17] MEDS: Levothyroxine TAB* 100 MCG TAB PO SCH (09:21)
[2017-08-17] MEDS: CMC:Dorzolamide 2% OPTH (NF) 10 ML BTL RIGHT EYE SCH ×3 (09:21→19:15)
[2017-08-17] MEDS: Magnesium Oxide TAB* 400 MG PO SCH (09:22)
[2017-08-17] MEDS: Metoprolol Succinate XL TAB* 25 MG PO SCH ×2 (09:22→19:12)
[2017-08-17] MEDS: Losartan TAB* 25 MG PO SCH (09:23)
[2017-08-17] MEDS: Cefdinir 250mg/5 ml* 100 ml ORAL.SUSP PO SCH ×2 (09:24→20:36)
[2017-08-17] MEDS: Furosemide TAB* 20 MG PO SCH (09:24)
[2017-08-17] MEDS: Vitamin THERAPEUTIC TAB PO SCH (09:41)
--- NOTE | 2017-08-17 10:59 | PN ---
Subjective - Subjective Date of Service: 08/17/17 Service Type: 70502 Hosp care 15 min low complexity Subjective: Francine appears euthymic but fatigued. She continues to deny SI, as she has done throughout this hospitalization. She does complain of tingling and pain in her fingers that started sometime after her hospitalization. Nursing staff reports that she occasionally has difficulty swallowing pills. Objective - Appearance Appearance: Well Developed/Nourished Dysmorphic Features: No Hygiene: Normal Grooming: Fairly Well Kept - Behavior Psychomotor Activities: Abnormal-Decreased Exhibits Abnormal Movement: No - Attitude and Relatedness Attitude and Relatedness: Cooperative Eye Contact: Fair - Speech Quality: Unpressured Latencies: Normal Quantity: Appropriate - Mood Patient's Decription of Mood: "Fine" - Affect Observed Affect: Fair Affect Consistent with: Euthymia - Thought Process Patient's Thought Process: Coherent Thought Content: No Passive Wish, No Suicidal Planning, No Homicidal Ideation, No Paranoid Ideation - Sensorium Experiencing Hallucinations: No, Sensorium is Clear Type of Hallucinations: Visual: No, Auditory: No, Command: No - Level of Consciousness Level of Consciousness: Alert Orientation: Yes Intact, Yes Orientated to Time, Yes Orientated to Place, Yes Orientated to Person - Impulse Control Impulse Control: Poor - Insight and Judgement Insight and Judgement: Impaired - Group Participation Particating in Group Activities: No - Medication Management Medication Management Adherence: Yes Assessment - Assessment Merits Inpatient Hospitalization: Consolidate Improvements, Pending Safe DC Plan Inpatient DSM-IV Dx: MDD, recurrent, severe with psychotic features Clinical Impression: 82 y.o. , white female with a history of recurrent major depression transferred from medicine after stabilization of atrial fibrillation and UTI who was consulted on due to depressed mood associated with decreased independent functioning and a suicide attempt via intentional OD on bupropion. Plan - Plan Treatment Plan: Name: FRANCINE MATHEWS Birthdate: 1935 [id number] We have started a trial of mirtazipine 30mg PO qhs with the patient's consent. PT and OT are evaluating her and initiating rehabilitative care. Disposition will involve transfer to subacute rehab. Continue to treat on inpatient basis. Hospitalist involvement appreciated. Will monitor paresthesias in hands. Order routine labs plus magnesium level in AM. Swallow eval by speech path. Continued Medication Management: Start Medication Medications: Current Medications Acetaminophen (Tylenol Adult Liq*) 650 mg PO Q4H PRN PRN Reason: for pain; or Temp >101 F Last Admin: 08/15/17 23:17 Dose: 650 mg Al Hydrox/Mg Hydrox/Simethicone (Maalox Plus*) 30 ml PO Q4H PRN PRN Reason: INDIGESTION Last Admin: 08/12/17 19:18 Dose: 30 ml Cefdinir (Omnicef 250 Mg/5 Ml*) 300 mg PO BID [facility] Last Admin: 08/17/17 09:24 Dose: 300 mg Dorzolamide HCl (Trusopt 2% Opth (Nf)) 1 drop RIGHT EYE 0800,1400,2000 [facility] PRN Reason: Protocol Last Admin: 08/17/17 09:21 Dose: 1 drop Enoxaparin Sodium (Lovenox(*)) 40 mg SUBCUT Q24H [facility] Last Admin: 08/16/17 15:27 Dose: 40 mg Furosemide (Lasix Tab*) 20 mg PO MoWeFr@0900 [facility] Last Admin: 08/17/17 09:24 Dose: 20 mg Ibuprofen (Motrin Tab*) 400 mg PO Q6H PRN PRN Reason: PAIN Last Admin: 08/12/17 11:27 Dose: 400 mg Latanoprost (Xalatan 0.005%*) 1 drop BOTH EYES BEDTIME [facility] PRN Reason: Protocol Last Admin: 08/16/17 21:14 Dose: 1 drop Levothyroxine Sodium (Synthroid Tab*) 100 mcg PO QAM@0600 [facility] Last Admin: 08/17/17 09:21 Dose: 100 mcg Losartan Potassium (Cozaar Tab*) 50 mg PO DAILY [facility] Last Admin: 08/17/17 09:23 Dose: 50 mg Magnesium Citrate (Citrate Of Magnesia*) 300 ml PO DAILY PRN PRN Reason: CONSTIPATION Magnesium Oxide (Magox 400 Tab*) 800 mg PO DAILY [facility] Last Admin: 08/17/17 09:22 Dose: 800 mg Metoprolol Succinate (Toprol Xl Tab*) 12.5 mg PO QPM [facility] Last Admin: 08/16/17 20:03 Dose: Not Given Metoprolol Succinate (Toprol Xl Tab*) 12.5 mg PO QAM [facility] Last Admin: 08/17/17 09:22 Dose: 12.5 mg Mirtazapine (Remeron Tab*) 30 mg PO BEDTIME [facility] Last Admin: 08/16/17 21:16 Dose: 30 mg Multivitamins (Theragran Tab*) 1 tab PO DAILY [facility] Last Admin: 08/17/17 09:41 Dose: Not Given Polyethylene Glycol/Electrolytes (Miralax*) 17 gm PO 0800,2100 [facility] Last Admin: 08/17/17 09:19 Dose: Not Given - Discharge Plan Discharge Plan: Inpatient Hospitalization
[2017-08-17] MEDS ORDERED: Polyethylene Glycol 3350* 17 GM PACKET PO PRN (11:26)
[2017-08-17] MEDS: Enoxaparin(*) 40 MG/0.4 ML SYR SUBCUT SCH (15:56)
[2017-08-17] MEDS: Mirtazapine TAB* 15 MG PO SCH (20:35)
[2017-08-17] MEDS: Latanoprost 0.005%* 2.5 ml BTL BOTH EYES SCH (21:42)
[2017-08-18 08:16] VITALS: BP 128/48
[2017-08-18] MEDS: Levothyroxine TAB* 100 MCG TAB PO SCH (08:51)
[2017-08-18] MEDS: Losartan TAB* 25 MG PO SCH (08:54)
[2017-08-18] MEDS: Magnesium Oxide TAB* 400 MG PO SCH (08:55)
[2017-08-18] MEDS: Metoprolol Succinate XL TAB* 25 MG PO SCH (08:57)
[2017-08-18] MEDS: CMC:Dorzolamide 2% OPTH (NF) 10 ML BTL RIGHT EYE SCH (08:58)
[2017-08-18] MEDS: Vitamin THERAPEUTIC TAB PO SCH (08:58)
[2017-08-18] MEDS: Cefdinir 250mg/5 ml* 100 ml ORAL.SUSP PO SCH (08:59)
[2017-08-18 11:58] LABS: EGFR Non-African American 62.2 (>60)
[2017-08-18 12:07] LABS: Hematocrit 32 % (35-47); Hemoglobin 10.3 g/dl (12.0-16.0); Mean Corpuscular HGB Conc 32 g/dl (31-36); Mean Corpuscular Hemoglobin 27 pg (27-31); Mean Corpuscular Volume 86 fL (80-97); Mean Platelet Volume 9 um3 (7.4-10.4); Platelet Count 532 10^3/ul (150-450); Red Blood Count 3.78 10^6/ul (4.0-5.4); Red Cell Distribution Width 16 % (10.5-15); White Blood Count 14.8 10^3/ul (3.5-10.8)
[2017-08-18 12:33] LABS: ABS Basophils 0.1 10^3/ul (0-0.2); ABS Eosinophils 0.2 10^3/ul (0-0.6); ABS Neutrophils 12.5 10^3/ul (1.5-7.7); ABS Nucleated RBC 0 10^3/ul; Eosinophil % 1.5 % (0-6); Lymphocyte % 6.6 % (25-47); Nucleated Red Blood Cells % 0
[2017-08-18] MEDS ORDERED: Mirtazapine TAB* 15 MG PO SCH (21:00)
--- NOTE | 2017-08-19 03:44 | DS ---
DISCHARGE SUMMARY: DATE OF ADMISSION: 08/06/17 DATE OF DISCHARGE: 08/18/17 DISCHARGE DIAGNOSES: Are as follows: [place] I: Major depressive disorder, recurrent, severe without psychotic features. 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 [place] III: Paroxysmal atrial fibrillation, anemia, hypomagnesemia, constipation , acute urinary tract infection, scoliosis, degenerative disk disease, glaucoma , macular degeneration, history of Graves' disease followed by thyroid cancer and status post thyroidectomy, hypertension. [place] IV: Severe primary support and housing stressors. Orlando V: At the time of admission was 34 and at the time of discharge is 59. CONDITION AT THE TIME OF DISCHARGE: Fair. The patient has steadfastly denied suicidal ideations throughout her hospitalization with us and she has been safe on all checks. She is tolerating antidepressant medication quite well and she is willing and eager to pursue subacute physical rehabilitation in order to get stronger and she is hoping to return to independent living in the community. The patient has been visited multiple times by caring neighbors from her [facility] apartment. She is cooperating with both physical and occupational therapies and she is agreeable with discharge plan to transfer her to subacute rehab. At this time, there is no further legal justification for involuntary treatment from a psychiatric perspective. MENTAL STATUS EXAMINATION: The patient is a tall, aging, white haired female, who is wearing eyeglasses. She is hard of hearing, but calm, cooperative, easy to establish a rapport with. Speech has a normal rate, tone, and volume. There is some evidence of continued hypokinesis. Mood is euthymic with a full affect. Thought process is linear and goal directed. Thought content is significant for her desire to go to subacute rehab. She denies suicidal or homicidal ideations. She denies auditory or visual hallucinations. There is no evidence of psychosis. Insight and judgement are fair given her willingness to followup with continued antidepressant therapy as well as physical and occupational therapies. Cognitively, she is awake and alert and seems to have an average intellect by virtue of her vocabulary and educational background. DISCHARGE INSTRUCTIONS: To the patient are as follows: A. Medications: 1. She takes travoprost Z 0.004% ophthalmic one drop to both eyes at bedtime. 2. MiraLAX 17 g twice daily as needed for constipation. 3. Metoprolol XL 12.5 mg p.o. b.i.d. 4. Cozaar 100 mg p.o. daily. 5. Synthroid 100 mcg p.o. daily. 6. Lasix 20 mg p.o. daily. 7. Dorzolamide 2% ophthalmic one drop to the right eye 3 times daily. 8. She takes mirtazapine 15 mg p.o. q.h.s. 9. Magnesium oxide 800 mg p.o. daily. B. Diet is regular. C. Activities: As per [facility] protocol. The patient is a nonsmoker. There are no laboratory or diagnostic studies pending at the time of discharge. D. Followup care: The patient will be a direct referral and transfer to the [facility] in [place], [place]. This is a subacute rehabilitation facility that will be working on the patient's strength and her independent living skills. This facility will be responsible for all of her outpatient followups at her time of discharge from their care. E. Substance abuse followup is nonapplicable. HOSPITAL COURSE: Part A: Reason for admission: The patient is an 82-year-old white female with a history of recurrent major depression, who is transferred from the medical service following stabilization of atrial fibrillation and urinary tract infection, who was consulted on due to depressed mood associated with decreased independent functioning and a suicide attempt via intentional overdose on bupropion. The patient initially arrived at our hospital accompanied by a friend secondary to left- sided weakness and difficulty attending to her activities of daily living. She is apparently a resident of the senior unassisted living facility at the [facility] in [facility]. While she was in the emergency room, she admitted to taking several extra bupropion pills while alone in her apartment in what was a formal suicide attempt. Initially, when I met with her for consultation, she was calm, cooperative, and greeted me stating "a lot of this is due to depression." She indicated that she had had several stressors recently such as limited social support in the area with very few family and many recently friends and she was having increased trouble ambulating around her small apartment. "It is just awful, all I do is watch TV in my bedroom." She admitted to taking somewhere between 6 and 7 extra tablets of 100 mg immediate release bupropion on the day prior to presentation, although her friends told the medical service that she actually took more of these and had to be talked out of further overdose by a neighbor of hers in the apartment building. Although, the attempt seems to have had low lethality with high in terms of intentionality from the standpoint that the patient really did feel that this would kill her. Symptomatically, she denied sleep disturbance or guilt, but she did endorse anhedonia, poor energy, difficulty concentrating, loss of appetite, psychomotor retardation and recent thoughts that her life would be better off if it was over. She did deny any history of brianna in the past or psychotic illness. Part B: Psychiatric treatment rendered: The patient was admitted to the adult behavioral health unit where she was placed on q.30 minute checks for her own safety. We immediately consulted Occupational and Physical Therapies who felt that she required 3 times weekly services to rebuild her strength. In addition , we consulted Medicine specifically, Dr. Maykel Wilks, who had been her attending on the 4th floor. He continued treatment with the antibiotic cefdinir 300 mg p.o. b.i.d. starting on August 12. This treatment course was completed on the day of discharge. I was able to reach the patient's primary care provider, Dr. Enriqueta Puente, who indicated that Francine had been somewhat difficult to treat in the community given her lack of adherence with antidepressant medication in the past and her frequent complaints of Myriad side effect from various antidepressant strategies. After speaking with the patient about her options, we did settle on a trial of mirtazapine. I was able to discontinue bupropion and start mirtazapine at the dose of 15 mg nightly. Given the fact that this was sedating, I increased it to the 30 mg dose which tends to be less sedating. The patient appeared to develop some mild paresthesias in her bilateral hands which was of uncertain etiology. To be on the safe side, I reduced her mirtazapine at that point from 30 back to 15 nightly. The patient was seen by both Occupational and Physical Therapies who continued to recommend subacute rehabilitation, to which the patient was agreeable. We have limited success involving her in milieu activities given her deconditioning and difficulty getting out of bed. She was not able to attend her own activities of daily living and she clearly requires fdc assistants at this time. Ultimately, we were able to locate a facility in [facility] that was willing to offer her a bed. I should state that her affect improved greatly throughout this hospitalization and she no longer endorsed either depressed mood or suicidal ideations. At this time, she is appropriately requesting discharge and we feel that she could be safely treated in a less restrictive setting. [id number]/[facility] #: [id number] MTDD
== END 2017-08-18 11:20 | DRG 885 ==
LOC: BSU 08-06 21:15
PROVIDERS: ADMIT Psychiatry & Neurology Psychiatry; ATTEND Psychiatry & Neurology Psychiatry
DX: F33.2 Major depressive disorder, recurrent severe without psychotic features (principal); I48.0 Paroxysmal atrial fibrillation; D64.9 Anemia, unspecified; E83.42 Hypomagnesemia; K59.00 Constipation, unspecified; H91.90 Unspecified hearing loss, unspecified ear; T43.292A Poisoning by other antidepressants, intentional self-harm, initial encounter; M17.0 Bilateral primary osteoarthritis of knee; D72.829 Elevated white blood cell count, unspecified; R60.9 Edema, unspecified; R62.7 Adult failure to thrive; M41.9 Scoliosis, unspecified; M19.90 Unspecified osteoarthritis, unspecified site; H40.9 Unspecified glaucoma; H35.30 Unspecified macular degeneration; I10 Essential (primary) hypertension; Z91.5 Personal history of self-harm; Z88.8 Allergy status to other drugs, medicaments and biological substances; Z88.5 Allergy status to narcotic agent; Z81.8 Family history of other mental and behavioral disorders; Z81.1 Family history of alcohol abuse and dependence; Y92.9 Unspecified place or not applicable; Z85.850 Personal history of malignant neoplasm of thyroid; Z87.440 Personal history of urinary (tract) infections
CPT/HCPCS: 36415; 80048; 80053; 81003; 81015; 83735; 85025; 93970; 99222; 99231; 99232; 99238; A9270-GY; J1650